=== PATIENT | male | born 1955 | race Asian ===

== ENCOUNTER 2020-02-18 12:54 | Outpatient (REF) | payer OTHER, SELFPAY ==
--- NOTE | 2020-02-18 | US_ITS ---
EXAMINATION: US RETROPERITONEAL LIMITED (RENAL ONLY) CLINICAL INFORMATION: Microalbuminuria. COMPARISON: None TECHNIQUE: Routine retroperitoneal imaging of kidneys was performed. FINDINGS: RIGHT KIDNEY: 11.9 x 4.5 x 5.9 cm (SAG x AP x TRV). The kidney is normal in size, contour, and echogenicity. Renal cortical thickness is normal. No calculi or focal parenchymal lesions. No hydronephrosis. LEFT KIDNEY: 12.3 x 6.7 x 5.1 cm (SAG x AP x TRV). The kidney is normal in size, contour, and echogenicity. Renal cortical thickness is normal. No calculi or focal parenchymal lesions. No hydronephrosis. US/US renal BI IMPRESSION: Unremarkable renal ultrasound.
== END 2020-02-18 12:55 | disposition home or self-care (01) ==
LOC: HO.US 12:54
PROVIDERS: Visit Provider Internal Medicine Nephrology
DX: R80.9 Proteinuria, unspecified (principal)
CPT/HCPCS: 76775

== ENCOUNTER → 2020-03-08 08:43 | Outpatient (BNVA) | payer OTHER, SELFPAY | PROVIDERS: PCP Internal Medicine; Referring Provider Internal Medicine; Visit Provider Urology | DX: N52.9 Male erectile dysfunction, unspecified (principal); R35.1 Nocturia | CPT/HCPCS: 99212 ==

== ENCOUNTER 2020-03-09 08:49 | Outpatient (REF) | payer OTHER, SELFPAY ==
[2020-03-09 10:13] LABS: MANUAL DIFF FLAG NO
[2020-03-09 10:23] LABS: Basophils Percent Auto 0.6 % (0-2); Eosinophils Absolute Auto 0.1 X10*3/uL (0.0-0.4); Eosinophils Percent Auto 1.2 % (0-4); Hemoglobin 14.9 g/dl (14.0-18.0); Imm Gran Abs Auto 0.01 X10*3/uL (0.00-0.03); Imm Gran Pct Auto 0.2 % (0.0-0.4); Lymphocytes Absolute Auto 1.8 X10*3/uL (1.2-4.9); Lymphocytes Percent Auto 36.4 % (20-40); Mean Corpuscular HGB Conc 32.4 g/dl (31.0-36.0); Mean Corpuscular Hemoglobin 29.6 pg (27.0-33.0); Mean Corpuscular Volume 91.3 fL (80-98); Mean Platelet Volume 10.2 fL (9.4-12.4); Monocytes Absolute Auto 0.4 X10*3/uL (0.1-1.2); Monocytes Percent Auto 8.1 % (2-11); Neutrophils Absolute Auto 2.7 X10*3/uL (2.0-8.3); Neutrophils Percent Auto 53.5 % (45-73); Platelet Count 194 X10*3/uL (160-400); Red Blood Count 5.04 X10*6/uL (4.60-5.80); White Blood Count 5.1 X10*3/uL (4.8-10.8)
[2020-03-09 10:28] LABS: Estimated Average Glucose 154 mg/dL
[2020-03-09 10:58] LABS: Alanine Aminotransferase 21 U/L (0-40); Albumin Level 4.1 g/dL (3.5-5.0); Alkaline Phosphatase 46 U/L (39-117); Anion Gap 12 (12-20); Aspartate Amino Transferase 25 U/L (5-37); Bilirubin Total 1.7 mg/dL (0.0-1.0); Blood Urea Nitrogen 17 mg/dL (9-16); Calcium 8.5 mg/dL (8.4-10.2); Carbon Dioxide 27 mmol/L (22-29); Chloride 102 mmol/L (96-108); Estimated Glomerular Filt Rate > 60; Glucose Random 134 mg/dL (60-115); Potassium 4.2 mmol/l (3.3-5.1); Sodium 137 mmol/L (135-145); Total Protein 7.7 g/dL (6.5-8.0)
[2020-03-09 11:22] LABS: Creatinine Urine 204.58 mg/dL
[2020-03-09 11:35] LABS: Microalbum/Creatinine Ratio Ur 633.9 ug/mg cr
== END 2020-03-09 08:50 | disposition home or self-care (01) ==
LOC: HO.LAB 08:49
PROVIDERS: PCP Internal Medicine; Visit Provider Internal Medicine
DX: E11.9 Type 2 diabetes mellitus without complications (principal); I10 Essential (primary) hypertension; I48.20 Chronic atrial fibrillation, unspecified; R80.9 Proteinuria, unspecified
CPT/HCPCS: 36415; 80053; 82043; 83036; 85025

== ENCOUNTER 2020-06-24 08:36 | Outpatient (REF) | payer OTHER, SELFPAY ==
[2020-06-24 09:55] LABS: MANUAL DIFF FLAG NO
[2020-06-24 10:06] LABS: Glucose Urine UA NEG (NEG); Leukocyte Esterase Urine NEG (NEG); Nitrite Urine NEG (NEG); Specific Gravity - Urine >= 1.030 (1.005-1.025); Urine Blood TRACE (NEG); Urine Ketones NEG (NEG); Urine Protein 2+ MG/DL (NEG-TRACE)
[2020-06-24 10:06] LABS: Basophils Percent Auto 0.7 % (0-2); Eosinophils Absolute Auto 0.1 X10*3/uL (0.0-0.4); Eosinophils Percent Auto 1.3 % (0-4); Hemoglobin 16.2 g/dl (14.0-18.0); Imm Gran Abs Auto 0.01 X10*3/uL (0.00-0.03); Imm Gran Pct Auto 0.2 % (0.0-0.4); Lymphocytes Absolute Auto 2.3 X10*3/uL (1.2-4.9); Lymphocytes Percent Auto 38.8 % (20-40); Mean Corpuscular HGB Conc 33.8 g/dl (31.0-36.0); Mean Corpuscular Hemoglobin 30.5 pg (27.0-33.0); Mean Corpuscular Volume 90.4 fL (80-98); Mean Platelet Volume 10.4 fL (9.4-12.4); Monocytes Absolute Auto 0.4 X10*3/uL (0.1-1.2); Monocytes Percent Auto 7.4 % (2-11); Neutrophils Absolute Auto 3.1 X10*3/uL (2.0-8.3); Neutrophils Percent Auto 51.6 % (45-73); Platelet Count 179 X10*3/uL (160-400); Red Blood Count 5.31 X10*6/uL (4.60-5.80); Red Cell Distribution Width 11.7 % (11.0-16.0); White Blood Count 5.9 X10*3/uL (4.8-10.8)
[2020-06-24 10:09] LABS: INTERNATIONAL NORM RATIO 1.9 (0.9-1.1); Prothrombin Time 22.9 SEC (10.8-13.0)
[2020-06-24 10:09] LABS: Appearance Urine CLEAR; Color Urine YELLOW
[2020-06-24 10:38] LABS: Creatinine Urine 157.14 mg/dL
[2020-06-24 10:42] LABS: Albumin Level 4.3 g/dL (3.5-5.0); Anion Gap 16 (12-20); Blood Urea Nitrogen 18 mg/dL (9-16); Calcium 8.9 mg/dL (8.4-10.2); Carbon Dioxide 27 mmol/L (22-29); Chloride 100 mmol/L (96-108); Estimated Glomerular Filt Rate > 60; Magnesium 2.1 mg/dL (1.6-2.6); Phosphorus 3.3 mg/dL (2.7-4.5); Potassium 4.4 mmol/L (3.3-5.1); Sodium 139 mmol/L (135-145)
[2020-06-24 11:00] LABS: Protein/Creatinine Ratio, Ur 2.27 (<0.2); Total Protein Urine Random 356 mg/dL (<12)
[2020-06-24 11:01] LABS: RBC Urine 0-2 /HPF (0); WBC Urine 0-2 /HPF (0-4)
[2020-06-24 11:19] LABS: Microalbum/Creatinine Ratio Ur 1587.1 ug/mg cr
[2020-06-24 13:26] LABS: Renal w Reflex Lab Use Only Order verified
== END 2020-06-24 08:37 | disposition home or self-care (01) ==
LOC: HO.LAB 08:36
PROVIDERS: PCP Internal Medicine; Visit Provider Internal Medicine Nephrology
DX: I48.91 Unspecified atrial fibrillation (principal); I10 Essential (primary) hypertension; R80.9 Proteinuria, unspecified
CPT/HCPCS: 36415; 80051; 81001; 82040; 82043; 82310; 82565; 83735; 84100; 84156; 84520; 85025; 85610

== ENCOUNTER → 2020-07-15 09:00 | Outpatient (BNVA) | payer OTHER, SELFPAY | PROVIDERS: PCP Internal Medicine; Visit Provider Internal Medicine | DX: I48.20 Chronic atrial fibrillation, unspecified (principal); Z51.81 Encounter for therapeutic drug level monitoring; Z79.01 Long term (current) use of anticoagulants | CPT/HCPCS: 85610; 99201 ==

== ENCOUNTER → 2020-07-22 09:02 | Outpatient (BNVA) | payer OTHER, SELFPAY | PROVIDERS: PCP Internal Medicine; Visit Provider Internal Medicine | DX: I48.20 Chronic atrial fibrillation, unspecified (principal); Z51.81 Encounter for therapeutic drug level monitoring; Z79.01 Long term (current) use of anticoagulants | CPT/HCPCS: 85610; 99211 ==

== ENCOUNTER → 2020-07-29 09:10 | Outpatient (BNVA) | payer OTHER, SELFPAY | PROVIDERS: PCP Internal Medicine; Visit Provider Internal Medicine | DX: I48.20 Chronic atrial fibrillation, unspecified (principal); I05.0 Rheumatic mitral stenosis; Z51.81 Encounter for therapeutic drug level monitoring; Z79.01 Long term (current) use of anticoagulants | CPT/HCPCS: 85610; 99211 ==

== ENCOUNTER 2020-08-03 08:47 | Outpatient (REF) | payer OTHER, SELFPAY ==
[2020-08-03 10:09] LABS: MANUAL DIFF FLAG NO
[2020-08-03 10:17] LABS: Basophils Percent Auto 0.6 % (0-2); Eosinophils Absolute Auto 0.1 X10*3/uL (0.0-0.4); Eosinophils Percent Auto 1.9 % (0-4); Hematocrit 48.9 % (42-52); Hemoglobin 16.8 g/dl (14.0-18.0); Imm Gran Abs Auto 0.01 X10*3/uL (0.00-0.03); Imm Gran Pct Auto 0.2 % (0.0-0.4); Lymphocytes Absolute Auto 1.3 X10*3/uL (1.2-4.9); Lymphocytes Percent Auto 24.4 % (20-40); Mean Corpuscular HGB Conc 34.4 g/dl (31.0-36.0); Mean Corpuscular Hemoglobin 31.3 pg (27.0-33.0); Mean Corpuscular Volume 91.2 fL (80-98); Mean Platelet Volume 10.2 fL (9.4-12.4); Monocytes Absolute Auto 0.4 X10*3/uL (0.1-1.2); Monocytes Percent Auto 8.1 % (2-11); Neutrophils Absolute Auto 3.3 X10*3/uL (2.0-8.3); Neutrophils Percent Auto 64.8 % (45-73); Platelet Count 202 X10*3/uL (160-400); Red Blood Count 5.36 X10*6/uL (4.60-5.80); White Blood Count 5.2 X10*3/uL (4.8-10.8)
[2020-08-03 10:54] LABS: Glucose Urine UA >=1000 MG/DL (NEG); Leukocyte Esterase Urine NEG (NEG); Nitrite Urine NEG (NEG); PH 5.5 (5.0-8.0); Specific Gravity - Urine 1.025 (1.005-1.025); Urine Blood TRACE (NEG); Urine Ketones NEG (NEG); Urine Protein 1+ MG/DL (NEG-TRACE)
[2020-08-03 10:57] LABS: Albumin Level 4.3 g/dL (3.5-5.0); Anion Gap 13 (12-20); Carbon Dioxide 27 mmol/L (22-29); Chloride 103 mmol/L (96-108); Estimated Glomerular Filt Rate > 60; Magnesium 2.3 mg/dL (1.6-2.6); Phosphorus 3.3 mg/dL (2.7-4.5); Potassium 4.5 mmol/L (3.3-5.1); Sodium 138 mmol/L (135-145)
[2020-08-03 11:00] LABS: Blood Urea Nitrogen 20 mg/dL (9-16); Calcium 8.9 mg/dL (8.4-10.2)
[2020-08-03 11:02] LABS: Appearance Urine CLEAR; Color Urine YELLOW
[2020-08-03 11:03] LABS: PSA,Total (Free>4and<10) 1.64 ng/mL (0.00-4.00)
[2020-08-03 11:05] LABS: Vitamin D 25-OH Total 11.5 ng/mL (>30)
[2020-08-03 11:21] LABS: RBC Urine 0-2 /HPF (0); WBC Urine 0-2 /HPF (0-4)
[2020-08-03 17:45] LABS: Creatinine Urine 92.93 mg/dL; Protein/Creatinine Ratio, Ur 0.77 (<0.2); Total Protein Urine Random 72 mg/dL (<12)
[2020-08-04 04:32] LABS: HBc Num1 0.15 S/CO (0.00-0.79); Hepatitis B Core Antibody Nonreactive (Nonreactive); ~Hepatitis C Antibody Nonreactive (Nonreactive)
[2020-08-04 04:48] LABS: HBS Num1 1.01 mIU/mL (0-7.99); HBsAGNum1 0.38 S/CO (0.00-0.99); Hepatitis B Surface Antigen Negative (Negative); ~Hepatitis B Surface Antibody NONREACTIVE (Nonreactive)
[2020-08-04 11:26] LABS: Calcium (PTHI) 9.1 mg/dL (8.6-10.3); PTHI 50 pg/mL (14-64)
[2020-08-04 14:12] LABS: Complement C3 153 mg/dL (82-185)
[2020-08-04 15:02] LABS: Anti Nuclear Antibody Screen NEGATIVE (NEGATIVE)
[2020-08-04 21:28] LABS: Kappa Light Chain, Free Serum 27.6 mg/L (3.3-19.4); Lambda Light Chain, Free Serum 19.7 mg/L (5.7-26.3)
[2020-08-05 22:23] LABS: Prot Elec - Albumin 4.2 g/dL (3.8-4.8); Prot Elec - Alpha1 0.2 g/dL (0.2-0.3); Prot Elec - Beta 1 0.5 g/dL (0.4-0.6); Prot Elec - Beta 2 0.6 g/dL (0.2-0.5); Prot Elec - Gamma 1.7 g/dL (0.8-1.7); Prot Elec - Total Protein 8.2 g/dL (6.1-8.1)
== END 2020-08-03 08:48 | disposition home or self-care (01) ==
LOC: HO.LAB 08:47
PROVIDERS: Urology; PCP Internal Medicine; Visit Provider Internal Medicine Nephrology
DX: Z12.5 Encounter for screening for malignant neoplasm of prostate (principal); N18.2 Chronic kidney disease, stage 2 (mild); I15.1 Hypertension secondary to other renal disorders; R80.9 Proteinuria, unspecified; E11.21 Type 2 diabetes mellitus with diabetic nephropathy; E11.22 Type 2 diabetes mellitus with diabetic chronic kidney disease; N13.8 Other obstructive and reflux uropathy; N40.1 Benign prostatic hyperplasia with lower urinary tract symptoms; R35.1 Nocturia
CPT/HCPCS: 36415; 80051; 81001; 81003; 82040; 82043; 82306; 82310; 82565; 83520; 83735; 83970; 84100; 84153; 84155; 84156; 84165; 84520; 85025; 86038; 86039; 86160; 86255; 86704; 86706; 86803; 87340

== ENCOUNTER → 2020-08-05 09:22 | Outpatient (BNVA) | payer OTHER, SELFPAY | PROVIDERS: PCP Internal Medicine; Visit Provider Internal Medicine | DX: I48.20 Chronic atrial fibrillation, unspecified (principal); I05.0 Rheumatic mitral stenosis; Z79.01 Long term (current) use of anticoagulants; Z51.81 Encounter for therapeutic drug level monitoring | CPT/HCPCS: 85610; 99211 ==

== ENCOUNTER → 2020-08-19 08:51 | Outpatient (BNVA) | payer OTHER, SELFPAY | PROVIDERS: PCP Internal Medicine; Visit Provider Internal Medicine | DX: I48.20 Chronic atrial fibrillation, unspecified (principal); I05.0 Rheumatic mitral stenosis; Z79.01 Long term (current) use of anticoagulants; Z51.81 Encounter for therapeutic drug level monitoring | CPT/HCPCS: 85610; 99211 ==

== ENCOUNTER 2020-08-31 08:07 | Outpatient (REF) | payer OTHER, SELFPAY ==
[2020-08-31 09:10] LABS: MANUAL DIFF FLAG NO
[2020-08-31 09:19] LABS: Basophils Percent Auto 0.5 % (0-2); Eosinophils Absolute Auto 0.1 X10*3/uL (0.0-0.4); Eosinophils Percent Auto 2.3 % (0-4); Hematocrit 47.5 % (42-52); Imm Gran Abs Auto 0.01 X10*3/uL (0.00-0.03); Imm Gran Pct Auto 0.2 % (0.0-0.4); Lymphocytes Absolute Auto 1.4 X10*3/uL (1.2-4.9); Lymphocytes Percent Auto 25.4 % (20-40); Mean Corpuscular HGB Conc 33.7 g/dl (31.0-36.0); Mean Corpuscular Hemoglobin 31.3 pg (27.0-33.0); Mean Corpuscular Volume 92.8 fL (80-98); Mean Platelet Volume 10.3 fL (9.4-12.4); Monocytes Absolute Auto 0.4 X10*3/uL (0.1-1.2); Monocytes Percent Auto 7.7 % (2-11); Neutrophils Absolute Auto 3.6 X10*3/uL (2.0-8.3); Neutrophils Percent Auto 63.9 % (45-73); Platelet Count 199 X10*3/uL (160-400); Red Blood Count 5.12 X10*6/uL (4.60-5.80); Red Cell Distribution Width 11.6 % (11.0-16.0); White Blood Count 5.6 X10*3/uL (4.8-10.8)
[2020-08-31 09:30] LABS: Estimated Average Glucose 163 mg/dL; Hemoglobin A1c % 7.3 %
[2020-08-31 09:46] LABS: Alanine Aminotransferase 18 U/L (0-40); Albumin Level 4.1 g/dL (3.5-5.0); Alkaline Phosphatase 53 U/L (39-117); Anion Gap 12 (12-20); Aspartate Amino Transferase 27 U/L (5-37); Bilirubin Total 1.6 mg/dL (0.0-1.0); Blood Urea Nitrogen 16 mg/dL (9-16); Calcium 9.1 mg/dL (8.4-10.2); Carbon Dioxide 27 mmol/L (22-29); Chloride 102 mmol/L (96-108); Estimated Glomerular Filt Rate > 60; Glucose Random 129 mg/dL (60-115); Potassium 4.3 mmol/L (3.3-5.1); Sodium 137 mmol/L (135-145); Total Protein 7.6 g/dL (6.5-8.0)
[2020-08-31 10:20] LABS: Creatinine Urine 134.24 mg/dL; Microalbum/Creatinine Ratio Ur 407.4 ug/mg cr
== END 2020-08-31 08:08 | disposition home or self-care (01) ==
LOC: HO.LAB 08:07
PROVIDERS: PCP Internal Medicine; Visit Provider Internal Medicine
DX: I48.91 Unspecified atrial fibrillation (principal); E11.9 Type 2 diabetes mellitus without complications; I10 Essential (primary) hypertension
CPT/HCPCS: 36415; 80053; 82043; 83036; 85025

== ENCOUNTER → 2020-09-09 08:56 | Outpatient (BNVA) | payer OTHER, SELFPAY | PROVIDERS: PCP Internal Medicine; Visit Provider Internal Medicine | DX: I48.20 Chronic atrial fibrillation, unspecified (principal); I05.0 Rheumatic mitral stenosis; Z51.81 Encounter for therapeutic drug level monitoring; Z79.01 Long term (current) use of anticoagulants | CPT/HCPCS: 85610; 99211 ==

== ENCOUNTER → 2020-09-30 09:05 | Outpatient (BNVA) | payer OTHER, SELFPAY | PROVIDERS: PCP Internal Medicine; Visit Provider Internal Medicine | DX: I48.20 Chronic atrial fibrillation, unspecified (principal); Z51.81 Encounter for therapeutic drug level monitoring; Z79.1 Long term (current) use of non-steroidal anti-inflammatories (NSAID) | CPT/HCPCS: 85610; 99211 ==

== ENCOUNTER → 2020-10-28 08:44 | Outpatient (BNVA) | payer OTHER, SELFPAY | PROVIDERS: PCP Internal Medicine; Visit Provider Internal Medicine | DX: I48.20 Chronic atrial fibrillation, unspecified (principal); I05.0 Rheumatic mitral stenosis; Z51.81 Encounter for therapeutic drug level monitoring; Z79.01 Long term (current) use of anticoagulants | CPT/HCPCS: 85610; 99211 ==

== ENCOUNTER 2020-11-23 07:46 | Outpatient (REF) | payer OTHER, SELFPAY ==
[2020-11-23 08:25] LABS: MANUAL DIFF FLAG NO
[2020-11-23 08:32] LABS: Basophils Percent Auto 0.4 % (0-2); Eosinophils Absolute Auto 0.1 X10*3/uL (0.0-0.4); Eosinophils Percent Auto 1.4 % (0-4); Hematocrit 47.3 % (42-52); Hemoglobin 15.7 g/dl (14.0-18.0); Imm Gran Abs Auto 0.01 X10*3/uL (0.00-0.03); Imm Gran Pct Auto 0.2 % (0.0-0.4); Lymphocytes Absolute Auto 1.5 X10*3/uL (1.2-4.9); Lymphocytes Percent Auto 28.3 % (20-40); Mean Corpuscular HGB Conc 33.2 g/dl (31.0-36.0); Mean Corpuscular Hemoglobin 30.7 pg (27.0-33.0); Mean Corpuscular Volume 92.4 fL (80-98); Mean Platelet Volume 9.9 fL (9.4-12.4); Monocytes Absolute Auto 0.5 X10*3/uL (0.1-1.2); Monocytes Percent Auto 9.7 % (2-11); Neutrophils Absolute Auto 3.1 X10*3/uL (2.0-8.3); Platelet Count 173 X10*3/uL (160-400); Red Blood Count 5.12 X10*6/uL (4.60-5.80); Red Cell Distribution Width 11.7 % (11.0-16.0); White Blood Count 5.2 X10*3/uL (4.8-10.8)
[2020-11-23 08:42] LABS: Estimated Average Glucose 169 mg/dL; Hemoglobin A1c % 7.5 %
[2020-11-23 09:01] LABS: Alanine Aminotransferase 17 U/L (0-40); Alkaline Phosphatase 50 U/L (39-117); Anion Gap 12 (12-20); Aspartate Amino Transferase 25 U/L (5-37); Bilirubin Total 1.4 mg/dL (0.0-1.0); Blood Urea Nitrogen 16 mg/dL (9-16); Calcium 8.9 mg/dL (8.4-10.2); Carbon Dioxide 25 mmol/L (22-29); Chloride 103 mmol/L (96-108); Estimated Glomerular Filt Rate > 60; Glucose Random 137 mg/dL (60-115); Potassium 4.4 mmol/L (3.3-5.1); Sodium 136 mmol/L (135-145); Total Protein 7.4 g/dL (6.5-8.0)
[2020-11-23 09:43] LABS: Glucose Urine UA >=1000 MG/DL (NEG); Leukocyte Esterase Urine NEG (NEG); Nitrite Urine NEG (NEG); PH 5.5 (5.0-8.0); Urine Blood NEG (NEG); Urine Ketones NEG (NEG); Urine Protein NEG (NEG-TRACE)
[2020-11-23 10:01] LABS: Appearance Urine CLEAR; Color Urine YELLOW
[2020-11-23 10:18] LABS: Creatinine Urine 58.52 mg/dL
[2020-11-23 11:18] LABS: Mucus Urine TRACE /LPF; RBC Urine 0-2 /HPF (0); WBC Urine 0-2 /HPF (0-4)
== END 2020-11-23 07:47 | disposition home or self-care (01) ==
LOC: HO.LAB 07:46
PROVIDERS: PCP Internal Medicine; Visit Provider Internal Medicine
DX: E11.22 Type 2 diabetes mellitus with diabetic chronic kidney disease (principal); I12.9 Hypertensive chronic kidney disease with stage 1 through stage 4 chronic kidney disease, or unspecified chronic kidney disease; N18.9 Chronic kidney disease, unspecified; I48.91 Unspecified atrial fibrillation
CPT/HCPCS: 36415; 80053; 81001; 81003; 82043; 83036; 85025

== ENCOUNTER → 2020-11-25 08:41 | Outpatient (BNVA) | payer OTHER, SELFPAY | PROVIDERS: PCP Internal Medicine; Visit Provider Internal Medicine | DX: I48.20 Chronic atrial fibrillation, unspecified (principal); Z51.81 Encounter for therapeutic drug level monitoring; Z79.01 Long term (current) use of anticoagulants | CPT/HCPCS: 85610; 99211 ==

== ENCOUNTER → 2020-12-30 08:50 | Outpatient (BNVA) | payer OTHER, SELFPAY | PROVIDERS: PCP Internal Medicine; Visit Provider Internal Medicine | DX: I48.20 Chronic atrial fibrillation, unspecified (principal); I05.0 Rheumatic mitral stenosis; Z51.81 Encounter for therapeutic drug level monitoring; Z79.01 Long term (current) use of anticoagulants | CPT/HCPCS: 85610; 99211 ==

== ENCOUNTER → 2021-01-27 09:01 | Outpatient (BNVA) | payer OTHER, SELFPAY | PROVIDERS: PCP Internal Medicine; Visit Provider Internal Medicine | DX: I48.20 Chronic atrial fibrillation, unspecified (principal); I05.0 Rheumatic mitral stenosis; Z51.81 Encounter for therapeutic drug level monitoring; Z79.01 Long term (current) use of anticoagulants | CPT/HCPCS: 85610; 99211 ==

== ENCOUNTER 2021-02-14 08:16 | Outpatient (REF) | payer OTHER, SELFPAY ==
[2021-02-14 08:34] LABS: MANUAL DIFF FLAG NO
[2021-02-14 08:57] LABS: Basophils Percent Auto 0.6 % (0-2); Eosinophils Absolute Auto 0.1 X10*3/uL (0.0-0.4); Eosinophils Percent Auto 1.6 % (0-4); Hematocrit 48.7 % (42-52); Hemoglobin 15.9 g/dl (14.0-18.0); Imm Gran Abs Auto 0.01 X10*3/uL (0.00-0.03); Imm Gran Pct Auto 0.2 % (0.0-0.4); Lymphocytes Absolute Auto 1.4 X10*3/uL (1.2-4.9); Lymphocytes Percent Auto 28.7 % (20-40); Mean Corpuscular HGB Conc 32.6 g/dl (31.0-36.0); Mean Corpuscular Hemoglobin 30.3 pg (27.0-33.0); Mean Corpuscular Volume 92.9 fL (80-98); Mean Platelet Volume 9.8 fL (9.4-12.4); Monocytes Absolute Auto 0.4 X10*3/uL (0.1-1.2); Monocytes Percent Auto 7.3 % (2-11); Neutrophils Percent Auto 61.6 % (45-73); Platelet Count 176 X10*3/uL (160-400); Red Blood Count 5.24 X10*6/uL (4.60-5.80); White Blood Count 4.9 X10*3/uL (4.8-10.8)
[2021-02-14 09:12] LABS: Appearance Urine CLEAR; Color Urine YELLOW; Glucose Urine UA >=1000 MG/DL (NEG); Leukocyte Esterase Urine NEG (NEG); Nitrite Urine NEG (NEG); Specific Gravity - Urine 1.025 (1.005-1.025); Urine Blood TRACE (NEG); Urine Ketones NEG (NEG); Urine Protein 1+ MG/DL (NEG-TRACE)
[2021-02-14 09:26] LABS: RBC Urine 0-2 /HPF (0); WBC Urine 0 /HPF (0-4)
[2021-02-14 09:34] LABS: Albumin Level 4.1 g/dL (3.5-5.0); Anion Gap 13 (12-20); Blood Urea Nitrogen 15 mg/dL (9-16); Calcium 9.1 mg/dL (8.4-10.2); Carbon Dioxide 26 mmol/L (22-29); Chloride 105 mmol/L (96-108); Estimated Glomerular Filt Rate > 60; Magnesium 2.2 mg/dL (1.6-2.6); Phosphorus 3.4 mg/dL (2.7-4.5); Potassium 4.3 mmol/L (3.3-5.1); Sodium 140 mmol/L (135-145)
[2021-02-14 09:36] LABS: Vitamin D 25-OH Total 27.4 ng/mL (>30)
[2021-02-16 15:37] LABS: Calcium (PTHI) 8.9 mg/dL (8.6-10.3); PTHI 40 pg/mL (14-64)
== END 2021-02-14 08:17 | disposition home or self-care (01) ==
LOC: HO.LAB 08:16
PROVIDERS: PCP Internal Medicine; Visit Provider Internal Medicine Nephrology
DX: E11.21 Type 2 diabetes mellitus with diabetic nephropathy (principal); E11.22 Type 2 diabetes mellitus with diabetic chronic kidney disease; N18.2 Chronic kidney disease, stage 2 (mild); I15.1 Hypertension secondary to other renal disorders; R80.1 Persistent proteinuria, unspecified
CPT/HCPCS: 36415; 80051; 81001; 81003; 82040; 82306; 82310; 82565; 83735; 83970; 84100; 84520; 85025; 87086

== ENCOUNTER → 2021-02-24 09:24 | Outpatient (BNVA) | payer OTHER, SELFPAY | PROVIDERS: PCP Internal Medicine; Visit Provider Internal Medicine | DX: I48.20 Chronic atrial fibrillation, unspecified (principal); Z51.81 Encounter for therapeutic drug level monitoring; Z79.01 Long term (current) use of anticoagulants | CPT/HCPCS: 85610; 99211 ==

== ENCOUNTER → 2021-03-31 09:06 | Outpatient (BNVA) | payer OTHER, SELFPAY | PROVIDERS: PCP Internal Medicine; Visit Provider Internal Medicine | DX: I48.20 Chronic atrial fibrillation, unspecified (principal); I05.0 Rheumatic mitral stenosis; Z51.81 Encounter for therapeutic drug level monitoring; Z79.01 Long term (current) use of anticoagulants | CPT/HCPCS: 85610; 99211 ==

== ENCOUNTER → 2021-04-12 08:53 | Outpatient (BNVA) | payer OTHER, SELFPAY | PROVIDERS: PCP Internal Medicine; Visit Provider Internal Medicine | DX: I48.20 Chronic atrial fibrillation, unspecified (principal); I05.0 Rheumatic mitral stenosis; Z51.81 Encounter for therapeutic drug level monitoring; Z79.01 Long term (current) use of anticoagulants | CPT/HCPCS: 85610; 99211 ==

== ENCOUNTER → 2021-04-26 09:11 | Outpatient (BNVA) | payer OTHER, SELFPAY | PROVIDERS: PCP Internal Medicine; Visit Provider Internal Medicine | DX: I48.20 Chronic atrial fibrillation, unspecified (principal); Z51.81 Encounter for therapeutic drug level monitoring; Z79.01 Long term (current) use of anticoagulants | CPT/HCPCS: 85610; 99211 ==

== ENCOUNTER → 2021-05-12 09:02 | Outpatient (BNVA) | payer OTHER, SELFPAY | PROVIDERS: PCP Internal Medicine; Visit Provider Internal Medicine | DX: I48.20 Chronic atrial fibrillation, unspecified (principal); Z51.81 Encounter for therapeutic drug level monitoring; Z79.01 Long term (current) use of anticoagulants | CPT/HCPCS: 85610; 99211 ==

== ENCOUNTER → 2021-06-02 08:39 | Outpatient (BNVA) | payer OTHER, SELFPAY | PROVIDERS: PCP Internal Medicine; Visit Provider Internal Medicine | DX: I48.20 Chronic atrial fibrillation, unspecified (principal); I05.0 Rheumatic mitral stenosis; Z51.81 Encounter for therapeutic drug level monitoring; Z79.01 Long term (current) use of anticoagulants | CPT/HCPCS: 85610; 99211 ==

== ENCOUNTER 2021-06-09 08:52 | Outpatient (REF) | payer OTHER, SELFPAY ==
[2021-06-09 09:10] LABS: MANUAL DIFF FLAG NO
[2021-06-09 10:11] LABS: Basophils Percent Auto 0.7 % (0-2); Eosinophils Absolute Auto 0.1 X10*3/uL (0.0-0.4); Eosinophils Percent Auto 1.1 % (0-4); Hematocrit 47.1 % (42.0-52.0); Hemoglobin 15.7 g/dl (14.0-18.0); Imm Gran Abs Auto 0.02 X10*3/uL (0.00-0.03); Imm Gran Pct Auto 0.5 % (0.0-0.4); Lymphocytes Absolute Auto 1.5 X10*3/uL (1.2-4.9); Lymphocytes Percent Auto 33.3 % (20-40); Mean Corpuscular HGB Conc 33.3 g/dl (31.0-36.0); Mean Corpuscular Hemoglobin 30.4 pg (27.0-33.0); Mean Corpuscular Volume 91.3 fL (80.0-98.0); Mean Platelet Volume 10.4 fL (9.4-12.4); Monocytes Absolute Auto 0.3 X10*3/uL (0.1-1.2); Monocytes Percent Auto 6.8 % (2-11); Neutrophils Absolute Auto 2.6 x10*3/uL (2.0-8.3); Neutrophils Percent Auto 57.6 % (45-73); Platelet Count 162 X10*3/uL (160-400); Red Blood Count 5.16 X10*6/uL (4.60-5.80); Red Cell Distribution Width 11.5 % (11.0-16.0); White Blood Count 4.4 X10*3/uL (4.8-10.8)
[2021-06-09 10:20] LABS: Alanine Aminotransferase 14 U/L (0-40); Alkaline Phosphatase 49 U/L (39-117); Anion Gap 11 (12-20); Aspartate Amino Transferase 18 U/L (5-37); Bilirubin Total 1.6 mg/dL (0.0-1.0); Blood Urea Nitrogen 15 mg/dL (9-16); Carbon Dioxide 28 mmol/L (22-29); Chloride 105 mmol/L (96-108); Cholesterol 147 mg/dL; Estimated Glomerular Filt Rate > 60; Glucose Fasting 132 mg/dL (60-99); HDL Cholesterol 46 mg/dL; LDL Cholesterol Calculated 80 mg/dl; Potassium 4.3 mmol/L (3.3-5.1); Sodium 140 mmol/L (135-145); Total Protein 7.6 g/dL (6.5-8.0); Triglycerides 105 mg/dL
[2021-06-09 10:31] LABS: Creatinine Urine 89.42 mg/dL
[2021-06-09 10:36] LABS: Estimated Average Glucose 160 mg/dL; Hemoglobin A1c % 7.2 %
[2021-06-09 10:46] LABS: Microalbum/Creatinine Ratio Ur 631.8 ug/mg cr
== END 2021-06-09 08:53 | disposition home or self-care (01) ==
LOC: HO.LAB 08:52
PROVIDERS: PCP Internal Medicine; Visit Provider Internal Medicine
DX: Z00.00 Encounter for general adult medical examination without abnormal findings (principal); Z12.5 Encounter for screening for malignant neoplasm of prostate; I48.91 Unspecified atrial fibrillation; E78.00 Pure hypercholesterolemia, unspecified; N40.0 Benign prostatic hyperplasia without lower urinary tract symptoms; E11.9 Type 2 diabetes mellitus without complications
CPT/HCPCS: 36415; 80053; 80061; 82043; 83036; 84153; 85025

== ENCOUNTER → 2021-06-16 08:16 | Outpatient (BNVA) | payer OTHER, SELFPAY | PROVIDERS: PCP Internal Medicine; Visit Provider Internal Medicine | DX: I48.20 Chronic atrial fibrillation, unspecified (principal); I05.0 Rheumatic mitral stenosis; Z51.81 Encounter for therapeutic drug level monitoring; Z79.01 Long term (current) use of anticoagulants | CPT/HCPCS: 85610; 99211 ==

== ENCOUNTER → 2021-07-07 08:17 | Outpatient (BNVA) | payer OTHER, SELFPAY | PROVIDERS: PCP Internal Medicine; Visit Provider Internal Medicine | DX: I48.20 Chronic atrial fibrillation, unspecified (principal); Z51.81 Encounter for therapeutic drug level monitoring; Z79.01 Long term (current) use of anticoagulants | CPT/HCPCS: 85610; 99211 ==

== ENCOUNTER → 2021-08-11 08:29 | Outpatient (BNVA) | payer OTHER, SELFPAY | PROVIDERS: PCP Internal Medicine; Visit Provider Internal Medicine | DX: I48.20 Chronic atrial fibrillation, unspecified (principal); Z79.01 Long term (current) use of anticoagulants; Z51.81 Encounter for therapeutic drug level monitoring | CPT/HCPCS: 85610; 99211 ==

== ENCOUNTER 2021-09-06 09:41 | Outpatient (REF) | payer OTHER, SELFPAY ==
[2021-09-06 11:28] LABS: PSA,Total (Free>4and<10) 4.63 ng/mL (0.00-4.00)
[2021-09-07 11:46] LABS: Free Prostate Spec Ag 0.8 ng/mL; Percent Free Prostate Spec Ag 15 % (calc) (>25); Prostate Specific Ag Total 5.2 ng/mL (< OR = 4.0)
== END 2021-09-06 09:42 | disposition home or self-care (01) ==
LOC: HO.LAB 09:41
PROVIDERS: PCP Internal Medicine; Visit Provider Urology
DX: Z12.5 Encounter for screening for malignant neoplasm of prostate (principal); N52.9 Male erectile dysfunction, unspecified
CPT/HCPCS: 36415; 84153; 84154

== ENCOUNTER → 2021-09-08 08:53 | Outpatient (BNVA) | payer OTHER, SELFPAY | PROVIDERS: PCP Internal Medicine; Visit Provider Internal Medicine | DX: I48.20 Chronic atrial fibrillation, unspecified (principal); Z79.01 Long term (current) use of anticoagulants; Z51.81 Encounter for therapeutic drug level monitoring | CPT/HCPCS: 85610; 99211 ==

== ENCOUNTER → 2021-09-15 08:42 | Outpatient (BNVA) | payer OTHER, SELFPAY | PROVIDERS: PCP Internal Medicine; Visit Provider Urology | DX: R97.20 Elevated prostate specific antigen [PSA] (principal); N52.9 Male erectile dysfunction, unspecified; B00.9 Herpesviral infection, unspecified | CPT/HCPCS: 99212 ==

== ENCOUNTER → 2021-10-06 08:57 | Outpatient (BNVA) | payer OTHER, SELFPAY | PROVIDERS: PCP Internal Medicine; Visit Provider Internal Medicine | DX: I48.20 Chronic atrial fibrillation, unspecified (principal); Z79.01 Long term (current) use of anticoagulants; Z51.81 Encounter for therapeutic drug level monitoring | CPT/HCPCS: 85610; 99211 ==

== ENCOUNTER → 2021-10-27 08:52 | Outpatient (BNVA) | payer OTHER, SELFPAY | PROVIDERS: PCP Internal Medicine; Visit Provider Internal Medicine | DX: I48.20 Chronic atrial fibrillation, unspecified (principal); Z51.81 Encounter for therapeutic drug level monitoring; Z79.01 Long term (current) use of anticoagulants | CPT/HCPCS: 85610 ==

== ENCOUNTER → 2021-11-24 08:58 | Outpatient (BNVA) | payer OTHER, SELFPAY | PROVIDERS: PCP Internal Medicine; Visit Provider Internal Medicine | DX: I48.20 Chronic atrial fibrillation, unspecified (principal); Z79.01 Long term (current) use of anticoagulants; Z51.81 Encounter for therapeutic drug level monitoring | CPT/HCPCS: 85610; 99211 ==

== ENCOUNTER 2021-11-24 10:25 | Outpatient (REF) | payer OTHER, SELFPAY ==
[2021-11-24 10:50] LABS: MANUAL DIFF FLAG NO
[2021-11-24 11:01] LABS: Basophils Percent Auto 0.6 % (0-2); Eosinophils Absolute Auto 0.1 X10*3/uL (0.0-0.4); Eosinophils Percent Auto 1.1 % (0-4); Hematocrit 46.5 % (42.0-52.0); Hemoglobin 15.5 g/dl (14.0-18.0); Imm Gran Abs Auto 0.01 X10*3/uL (0.00-0.03); Imm Gran Pct Auto 0.2 % (0.0-0.4); Lymphocytes Absolute Auto 1.1 X10*3/uL (1.2-4.9); Lymphocytes Percent Auto 23.9 % (20-40); Mean Corpuscular HGB Conc 33.3 g/dl (31.0-36.0); Mean Corpuscular Hemoglobin 30.3 pg (27.0-33.0); Mean Corpuscular Volume 90.8 fL (80.0-98.0); Mean Platelet Volume 9.7 fL (9.4-12.4); Monocytes Absolute Auto 0.4 X10*3/uL (0.1-1.2); Neutrophils Absolute Auto 3.1 x10*3/uL (2.0-8.3); Neutrophils Percent Auto 66.2 % (45-73); Platelet Count 176 X10*3/uL (160-400); Red Blood Count 5.12 X10*6/uL (4.60-5.80); Red Cell Distribution Width 11.8 % (11.0-16.0); White Blood Count 4.6 X10*3/uL (4.8-10.8)
[2021-11-24 11:06] LABS: Estimated Average Glucose 154 mg/dL
[2021-11-24 12:14] LABS: Alanine Aminotransferase 18 U/L (0-40); Albumin Level 4.2 g/dL (3.5-5.0); Alkaline Phosphatase 52 U/L (39-117); Anion Gap 13 (12-20); Aspartate Amino Transferase 21 U/L (5-37); Bilirubin Total 1.3 mg/dL (0.0-1.0); Blood Urea Nitrogen 16 mg/dL (9-16); Calcium 8.7 mg/dL (8.4-10.2); Carbon Dioxide 27 mmol/L (22-29); Chloride 104 mmol/L (96-108); Estimated Glomerular Filt Rate > 60; Glucose Fasting 131 mg/dL (60-99); Potassium 4.3 mmol/L (3.3-5.1); Sodium 140 mmol/L (135-145); Total Protein 7.7 g/dL (6.5-8.0)
[2021-11-24 12:18] LABS: Vitamin D 25-OH Total 23.3 ng/mL (>30)
[2021-11-24 14:25] LABS: Creatinine Urine 77.04 mg/dL
== END 2021-11-24 10:26 | disposition home or self-care (01) ==
LOC: HO.10HDL 10:25
PROVIDERS: Visit Provider Internal Medicine
DX: I48.91 Unspecified atrial fibrillation (principal); I10 Essential (primary) hypertension; E11.9 Type 2 diabetes mellitus without complications; E55.9 Vitamin D deficiency, unspecified
CPT/HCPCS: 36415; 80053; 82043; 82306; 83036; 85025

== ENCOUNTER → 2021-12-22 09:00 | Outpatient (BNVA) | payer OTHER, SELFPAY | PROVIDERS: PCP Internal Medicine; Visit Provider Internal Medicine | DX: I48.20 Chronic atrial fibrillation, unspecified (principal); Z51.81 Encounter for therapeutic drug level monitoring; Z79.01 Long term (current) use of anticoagulants | CPT/HCPCS: 85610; 99211 ==

== ENCOUNTER → 2022-01-05 09:14 | Outpatient (BNVA) | payer OTHER, SELFPAY | PROVIDERS: PCP Internal Medicine; Visit Provider Internal Medicine | DX: I48.20 Chronic atrial fibrillation, unspecified (principal); Z51.81 Encounter for therapeutic drug level monitoring; Z79.01 Long term (current) use of anticoagulants | CPT/HCPCS: 85610; 99211 ==

== ENCOUNTER → 2022-01-19 09:16 | Outpatient (BNVA) | payer OTHER, SELFPAY | PROVIDERS: PCP Internal Medicine; Visit Provider Internal Medicine | DX: I48.20 Chronic atrial fibrillation, unspecified (principal); Z79.01 Long term (current) use of anticoagulants; Z51.81 Encounter for therapeutic drug level monitoring | CPT/HCPCS: 85610; 99211 ==

== ENCOUNTER → 2022-02-16 09:14 | Outpatient (BNVA) | payer OTHER, SELFPAY | PROVIDERS: PCP Internal Medicine; Visit Provider Internal Medicine | DX: I48.20 Chronic atrial fibrillation, unspecified (principal); Z79.01 Long term (current) use of anticoagulants; Z51.81 Encounter for therapeutic drug level monitoring | CPT/HCPCS: 85610; 99211 ==

== ENCOUNTER 2022-03-02 10:15 | Outpatient (REF) | payer OTHER, SELFPAY ==
[2022-03-02 10:37] LABS: MANUAL DIFF FLAG NO
[2022-03-02 10:42] LABS: Basophils Percent Auto 0.4 % (0-2); Eosinophils Absolute Auto 0.1 X10*3/uL (0.0-0.4); Eosinophils Percent Auto 1.1 % (0-4); Hematocrit 49.3 % (42.0-52.0); Hemoglobin 16.8 g/dl (14.0-18.0); Imm Gran Abs Auto 0.01 X10*3/uL (0.00-0.03); Imm Gran Pct Auto 0.2 % (0.0-0.4); Lymphocytes Percent Auto 18.5 % (20-40); Mean Corpuscular HGB Conc 34.1 g/dl (31.0-36.0); Mean Corpuscular Hemoglobin 30.7 pg (27.0-33.0); Mean Platelet Volume 9.6 fL (9.4-12.4); Monocytes Absolute Auto 0.4 X10*3/uL (0.1-1.2); Monocytes Percent Auto 7.2 % (2-11); Neutrophils Percent Auto 72.6 % (45-73); Platelet Count 176 X10*3/uL (160-400); Red Blood Count 5.48 X10*6/uL (4.60-5.80); Red Cell Distribution Width 11.7 % (11.0-16.0); White Blood Count 5.5 X10*3/uL (4.8-10.8)
[2022-03-02 10:59] LABS: Estimated Average Glucose 154 mg/dL
[2022-03-02 11:19] LABS: Anion Gap 17 (12-20); Blood Urea Nitrogen 15 mg/dL (9-16); Calcium 9.1 mg/dL (8.4-10.2); Carbon Dioxide 24 mmol/L (22-29); Chloride 102 mmol/L (96-108); Estimated Glomerular Filt Rate > 60; Glucose Fasting 148 mg/dL (60-99); Potassium 4.2 mmol/L (3.3-5.1); Sodium 139 mmol/L (135-145)
[2022-03-02 11:34] LABS: Vitamin D 25-OH Total 35.8 ng/mL (>30)
== END 2022-03-02 10:16 | disposition home or self-care (01) ==
LOC: HO.10HDL 10:15
PROVIDERS: Visit Provider Internal Medicine
DX: E11.9 Type 2 diabetes mellitus without complications (principal); I48.91 Unspecified atrial fibrillation; I10 Essential (primary) hypertension; E55.9 Vitamin D deficiency, unspecified
CPT/HCPCS: 36415; 80048; 82306; 83036; 85025

== ENCOUNTER 2022-03-16 08:20 | Outpatient (REF) | payer OTHER, SELFPAY ==
[2022-03-16 15:00] LABS: PSA,Total (Free>4and<10) 2.88 ng/mL (0.00-4.00)
== END 2022-03-16 08:21 | disposition home or self-care (01) ==
LOC: HO.10HDL 08:20
PROVIDERS: Visit Provider Urology
DX: Z12.5 Encounter for screening for malignant neoplasm of prostate (principal); I48.20 Chronic atrial fibrillation, unspecified; N40.1 Benign prostatic hyperplasia with lower urinary tract symptoms; N13.8 Other obstructive and reflux uropathy; Z51.81 Encounter for therapeutic drug level monitoring; Z79.01 Long term (current) use of anticoagulants
CPT/HCPCS: 36415; 84153; 85610; 99211

== ENCOUNTER 2022-03-28 08:41 | Outpatient (REF) | payer OTHER, SELFPAY ==
[2022-03-28 16:43] LABS: Urine Cytology See Pathology rpt
== END 2022-03-28 08:42 | disposition home or self-care (01) ==
LOC: HO.LAB 08:41
PROVIDERS: Visit Provider Urology
DX: R35.1 Nocturia (principal); R31.29 Other microscopic hematuria; E11.69 Type 2 diabetes mellitus with other specified complication; N52.1 Erectile dysfunction due to diseases classified elsewhere; R97.20 Elevated prostate specific antigen [PSA]; Q55.69 Other congenital malformation of penis; I10 Essential (primary) hypertension; E78.5 Hyperlipidemia, unspecified; Z79.01 Long term (current) use of anticoagulants; Z79.899 Other long term (current) drug therapy
CPT/HCPCS: 51798; 88112; 99212

== ENCOUNTER → 2022-04-06 09:07 | Outpatient (BNVA) | payer MEDICARE, MEDICAID, SELFPAY | PROVIDERS: PCP Internal Medicine; Visit Provider Internal Medicine | DX: I48.20 Chronic atrial fibrillation, unspecified (principal); Z79.01 Long term (current) use of anticoagulants; Z51.81 Encounter for therapeutic drug level monitoring | CPT/HCPCS: 85610; 99211 ==

== ENCOUNTER → 2022-04-27 08:51 | Outpatient (BNVA) | payer MEDICARE, MEDICAID, SELFPAY | PROVIDERS: PCP Internal Medicine; Visit Provider Internal Medicine | DX: I48.20 Chronic atrial fibrillation, unspecified (principal); Z79.01 Long term (current) use of anticoagulants; Z51.81 Encounter for therapeutic drug level monitoring | CPT/HCPCS: 85610; 99211 ==

== ENCOUNTER → 2022-05-24 08:19 | Outpatient (BNVA) | payer MEDICARE, MEDICAID, SELFPAY | PROVIDERS: PCP Internal Medicine; Visit Provider Urology | DX: E11.69 Type 2 diabetes mellitus with other specified complication (principal); N52.1 Erectile dysfunction due to diseases classified elsewhere; R97.20 Elevated prostate specific antigen [PSA] | CPT/HCPCS: 51798; 99212 ==

== ENCOUNTER → 2022-05-25 09:00 | Outpatient (BNVA) | payer MEDICARE, MEDICAID, SELFPAY | PROVIDERS: PCP Internal Medicine; Visit Provider Internal Medicine | DX: I48.20 Chronic atrial fibrillation, unspecified (principal); Z79.01 Long term (current) use of anticoagulants; Z51.81 Encounter for therapeutic drug level monitoring | CPT/HCPCS: 85610; 99211 ==

== ENCOUNTER 2022-06-19 09:25 | Outpatient (REF) | payer MEDICARE, MEDICAID, SELFPAY ==
[2022-06-19 10:37] LABS: MANUAL DIFF FLAG NO
[2022-06-19 10:51] LABS: Appearance Urine Clear; Color Urine Yellow; Glucose Urine UA >=1000 mg/dL (Negative); Leukocyte Esterase Urine Negative (Negative); Nitrite Urine Negative (Negative); PH 5.5 (5.0-9.0); Specific Gravity - Urine >= 1.030 (1.005-1.025); UMIC TRIGGER UA YES; Urine Blood Trace (Negative); Urine Ketones Negative (Negative); Urine Protein 100 (2+) mg/dL (Neg-Trace)
[2022-06-19 10:52] LABS: Basophils Percent Auto 0.9 % (0-2); Eosinophils Absolute Auto 0.1 X10*3/uL (0.0-0.4); Eosinophils Percent Auto 1.5 % (0-4); Hematocrit 49.7 % (42.0-52.0); Hemoglobin 16.6 g/dl (14.0-18.0); Lymphocytes Absolute Auto 1.3 X10*3/uL (1.2-4.9); Lymphocytes Percent Auto 28.9 % (20-40); Mean Corpuscular HGB Conc 33.4 g/dl (31.0-36.0); Mean Corpuscular Hemoglobin 30.8 pg (27.0-33.0); Mean Corpuscular Volume 92.2 fL (80.0-98.0); Monocytes Absolute Auto 0.4 X10*3/uL (0.1-1.2); Neutrophils Absolute Auto 2.7 x10*3/uL (2.0-8.3); Neutrophils Percent Auto 59.7 % (45-73); Platelet Count 169 X10*3/uL (160-400); Red Blood Count 5.39 X10*6/uL (4.60-5.80); Red Cell Distribution Width 11.6 % (11.0-16.0); White Blood Count 4.6 X10*3/uL (4.8-10.8)
[2022-06-19 10:54] LABS: Bacteria Urine None Seen (None Seen); Hyaline Casts Urine 0-2 /LPF (0-2); RBC Urine 0-2 /HPF (0-2); Squamous Epithelial Cell Urine 0-2 /HPF (0-2); WBC Urine 0-5 /HPF (0-5)
[2022-06-19 11:00] LABS: Prothrombin Time 36.4 SEC (10.0-13.1)
[2022-06-19 11:03] LABS: Estimated Average Glucose 166 mg/dL; Hemoglobin A1c % 7.4 %
[2022-06-19 11:24] LABS: Alanine Aminotransferase 15 U/L (0-40); Albumin Level 3.9 g/dL (3.5-5.0); Alkaline Phosphatase 50 U/L (39-117); Anion Gap 13 (12-20); Aspartate Amino Transferase 20 U/L (5-37); Blood Urea Nitrogen 19 mg/dL (9-16); Calcium 8.9 mg/dL (8.4-10.2); Carbon Dioxide 27 mmol/L (22-29); Chloride 103 mmol/L (96-108); Estimated Glomerular Filt Rate > 60; Glucose Fasting 148 mg/dL (60-99); Potassium 4.3 mmol/L (3.3-5.1); Sodium 139 mmol/L (135-145); Total Protein 7.2 g/dL (6.5-8.0)
[2022-06-19 11:32] LABS: Creatinine Urine 81.87 mg/dL; Protein/Creatinine Ratio, Ur 1.42 (<0.2); Total Protein Urine Random 116 mg/dL (<12)
[2022-06-19 11:43] LABS: Thyroid Stimulating Hormone 0.83 uIU/mL (0.32-4.0)
[2022-06-19 11:49] LABS: Microalbum/Creatinine Ratio Ur 936.8 ug/mg cr
[2022-06-26 10:29] LABS: Testosterone, Free 94.8 pg/mL (35.0-155.0); Testosterone, Total 369 ng/dL (250-1100)
== END 2022-06-19 09:26 | disposition home or self-care (01) ==
LOC: HO.10HDL 09:25
PROVIDERS: Absent Provider Internal Medicine Nephrology; Visit Provider Internal Medicine
DX: E11.21 Type 2 diabetes mellitus with diabetic nephropathy (principal); R80.9 Proteinuria, unspecified; I12.9 Hypertensive chronic kidney disease with stage 1 through stage 4 chronic kidney disease, or unspecified chronic kidney disease; E11.22 Type 2 diabetes mellitus with diabetic chronic kidney disease; N18.2 Chronic kidney disease, stage 2 (mild); I48.91 Unspecified atrial fibrillation; R53.83 Other fatigue
CPT/HCPCS: 36415; 80053; 81001; 82043; 83036; 84156; 84402; 84403; 84443; 85025; 85610

== ENCOUNTER → 2022-06-29 09:06 | Outpatient (BNVA) | payer MEDICARE, MEDICAID, SELFPAY | PROVIDERS: PCP Internal Medicine; Visit Provider Internal Medicine | DX: I48.20 Chronic atrial fibrillation, unspecified (principal); Z79.01 Long term (current) use of anticoagulants; Z51.81 Encounter for therapeutic drug level monitoring | CPT/HCPCS: 85610; 99211 ==

== ENCOUNTER → 2022-07-27 08:57 | Outpatient (BNVA) | payer MEDICARE, MEDICAID, SELFPAY | PROVIDERS: PCP Internal Medicine; Visit Provider Internal Medicine | DX: I48.20 Chronic atrial fibrillation, unspecified (principal); Z79.01 Long term (current) use of anticoagulants; Z51.81 Encounter for therapeutic drug level monitoring | CPT/HCPCS: 85610; 99211 ==

== ENCOUNTER → 2022-08-10 09:02 | Outpatient (BNVA) | payer OTHER, MEDICAID, SELFPAY | PROVIDERS: PCP Internal Medicine; Visit Provider Internal Medicine | DX: I48.20 Chronic atrial fibrillation, unspecified (principal); Z51.81 Encounter for therapeutic drug level monitoring; Z79.01 Long term (current) use of anticoagulants | CPT/HCPCS: 85610; 99211 ==

== ENCOUNTER → 2022-09-14 09:12 | Outpatient (BNVA) | payer OTHER, MEDICAID, SELFPAY | PROVIDERS: PCP Internal Medicine; Visit Provider Internal Medicine | DX: I48.20 Chronic atrial fibrillation, unspecified (principal); Z79.01 Long term (current) use of anticoagulants; Z51.81 Encounter for therapeutic drug level monitoring | CPT/HCPCS: 85610; 99211 ==

== ENCOUNTER 2022-09-20 09:27 | Outpatient (REF) | payer OTHER, MEDICAID, SELFPAY ==
[2022-09-20 10:43] LABS: MANUAL DIFF FLAG NO
[2022-09-20 10:45] LABS: Basophils Absolute Auto 0.1 X10*3/uL (0.0-0.2); Basophils Percent Auto 1.1 % (0-2); Eosinophils Absolute Auto 0.1 X10*3/uL (0.0-0.4); Eosinophils Percent Auto 1.9 % (0-4); Hematocrit 46.3 % (42.0-52.0); Hemoglobin 15.5 g/dl (14.0-18.0); Imm Gran Abs Auto 0.01 X10*3/uL (0.00-0.03); Imm Gran Pct Auto 0.2 % (0.0-0.4); Lymphocytes Absolute Auto 1.1 X10*3/uL (1.2-4.9); Mean Corpuscular HGB Conc 33.5 g/dl (31.0-36.0); Mean Corpuscular Hemoglobin 30.8 pg (27.0-33.0); Mean Platelet Volume 9.8 fL (9.4-12.4); Monocytes Absolute Auto 0.5 X10*3/uL (0.1-1.2); Monocytes Percent Auto 9.7 % (2-11); Neutrophils Absolute Auto 2.9 x10*3/uL (2.0-8.3); Neutrophils Percent Auto 63.1 % (45-73); Platelet Count 176 X10*3/uL (160-400); Red Blood Count 5.03 X10*6/uL (4.60-5.80); Red Cell Distribution Width 12.1 % (11.0-16.0); White Blood Count 4.6 X10*3/uL (4.8-10.8)
[2022-09-20 11:19] LABS: Alanine Aminotransferase 16 U/L (0-40); Albumin Level 4.1 g/dL (3.5-5.0); Alkaline Phosphatase 53 U/L (39-117); Anion Gap 14 (12-20); Aspartate Amino Transferase 21 U/L (5-37); Bilirubin Total 2.2 mg/dL (0.0-1.0); Blood Urea Nitrogen 15 mg/dL (9-16); Calcium 8.8 mg/dL (8.4-10.2); Carbon Dioxide 24 mmol/L (22-29); Chloride 106 mmol/L (96-108); Estimated Glomerular Filt Rate > 60; Glucose Random 155 mg/dL (60-115); Potassium 4.5 mmol/L (3.3-5.1); Sodium 139 mmol/L (135-145); Total Protein 7.6 g/dL (6.5-8.0)
[2022-09-20 11:22] LABS: Estimated Average Glucose 157 mg/dL; Hemoglobin A1c % 7.1 %
== END 2022-09-20 09:28 | disposition home or self-care (01) ==
LOC: HO.10HDL 09:27
PROVIDERS: Visit Provider Internal Medicine
DX: I48.91 Unspecified atrial fibrillation (principal); E11.22 Type 2 diabetes mellitus with diabetic chronic kidney disease; I12.9 Hypertensive chronic kidney disease with stage 1 through stage 4 chronic kidney disease, or unspecified chronic kidney disease; N18.9 Chronic kidney disease, unspecified
CPT/HCPCS: 36415; 80053; 83036; 85025

== ENCOUNTER → 2022-10-12 09:08 | Outpatient (BNVA) | payer OTHER, MEDICAID, SELFPAY | PROVIDERS: PCP Internal Medicine; Visit Provider Internal Medicine | DX: I48.20 Chronic atrial fibrillation, unspecified (principal); Z79.01 Long term (current) use of anticoagulants; Z51.81 Encounter for therapeutic drug level monitoring | CPT/HCPCS: 85610; 99211 ==

== ENCOUNTER → 2022-10-26 08:54 | Outpatient (BNVA) | payer OTHER, MEDICAID, SELFPAY | PROVIDERS: PCP Internal Medicine; Visit Provider Internal Medicine | DX: I48.20 Chronic atrial fibrillation, unspecified (principal); Z79.01 Long term (current) use of anticoagulants; Z51.81 Encounter for therapeutic drug level monitoring | CPT/HCPCS: 85610; 99211 ==

== ENCOUNTER 2022-11-06 09:49 | Outpatient (REF) | payer OTHER, MEDICAID, SELFPAY ==
[2022-11-06 13:16] LABS: Prostate Specific Antigen 1.73 ng/mL (<0.05-4.0)
[2022-11-14 11:54] LABS: Testosterone, Total 423 ng/dL (250-1100)
== END 2022-11-06 09:50 | disposition home or self-care (01) ==
LOC: HO.LAB 09:49
PROVIDERS: PCP Internal Medicine; Visit Provider Urology
DX: Z12.5 Encounter for screening for malignant neoplasm of prostate (principal); N52.1 Erectile dysfunction due to diseases classified elsewhere; R97.20 Elevated prostate specific antigen [PSA]; E11.69 Type 2 diabetes mellitus with other specified complication
CPT/HCPCS: 36415; 84153; 84403

== ENCOUNTER 2022-11-22 08:23 | Outpatient (AMB) | payer OTHER, SELFPAY ==
--- NOTE | 2022-11-22 08:28 | A.OFFVIS_ITS ---
Intake Intake Visit Reasons: 6M PSA/Testo(Testo pending ) Intake Note: Patient is present for Follow Up LABS Urology Med:Tadalafil, Sildenafil Antibiotic Allergy: None Blood Thinner: Warfarin Allergies peanut [PEANUT] Adverse Reaction (Intermediate, Verified 11/22/22 08:29) ANGIOEDEMA SEASONAL ALLERGIES Allergy (Mild, Uncoded 11/22/22 08:29) STUFFY NOSE Medication List - Last Reconciled 11/22/22 by Efrem Gamboa MD canagliflozin (Invokana) 300 mg PO DAILY carvedilol 3.125 mg PO BID finerenone (Kerendia) mg PO flu vac qs 2019(4 yr up)CD(PF) mL IM fluticasone propionate 50 mcg/actuation 1 spray intranasal DAILY losartan 50 mg PO DAILY metformin ER 500 mg PO DAILY [omega3 PO] simvastatin mg PO tadalafil 10 mg PO DAILY 90 days valacyclovir 500 mg PO BID warfarin mg See Protocol PO HPI HPI Comments History of Present Illness Details Fanny is a pleasant [place] male. He is a patient of Dr. Felix. He seen for the following urologic conditions - erectile dysfunction - elevated PSA Testosterone normal limits PSA normal Would like to switch from on demand sildenafil to on demand tadalafil 20 mg Encouraged to go for brisk walk for 15-20 minutes following evening meal HBA1c - 03/20 7.0 Elevated PSA PSA 09/17 5.2, 03/20 2.8 HAYES 2+ 2016 - Prostate Biopsy Erectile dysfunction: with Diabetes Good response to combination oral therapy - daily tadalafil 10mg with on demand sildenafil 100mg He presents today for further evaluation of erectile dysfunction. Symptoms have been present for/since Ongoing. Procedure(s)/Diagnosis causing dysfunction include diabetes. Current treatment includes none. Prior therapies include oral medications - sildenafil on demand. At this time he experiences erections are partial and insufficient for vaginal penetration, that undergo rapid detumesence after penetration, YUDITH 1-7 Severe ED. Nocturnal erections Minimal. Currently they are in a stable relationship. Associated problems hypertension Yes diabetes Yes dyslipidemia Yes Recent labs included 11/15 T 500, 11/18 423 1.8 Review of Systems Const Denies chills and Denies fever(s) Card Reports no additional complaints and Denies syncope Resp Denies cough GI Denies abdominal pain and Denies heartburn Reports as per HPI and Denies change in libido Neuro Denies syncope Psych Denies change in libido Endo Denies change in libido Physical Exam Const General: cooperative, healthy appearing, comfortable and no acute distress Orientation/consciousness: patient oriented x3 HEENT Face and sinus: Yes normal facial exam Mouth: moist mucous membranes Neck Neck: Yes normal visual inspection, Yes full ROM and Yes trachea midline Chest Chest palpation & inspection: normal inspection of the chest Resp Effort & Inspection: normal respiratory effort, able to speak in complete sentences and no respiratory distress GI Inspection: Yes normal to inspection Back/Spine/Pelvis Cervical Spine: normal cervical lordosis Thoracic/Lumbar Spine: thoracic and lumbar spine normal to inspection Skin General skin exam: no rashes or lesions noted Neuro General: patient oriented x3, gait normal, tone normal and moves all extremities Extrem General: Yes normal to inspection and Yes capillary refill normal Assessment & Plan Assessment & Plan (1) Erectile dysfunction associated with type 2 diabetes mellitus: Code(s): E11.69 - Type 2 diabetes mellitus with other specified complication; N52.1 - Erectile dysfunction due to diseases classified elsewhere Plan Six month follow-up Orders: Orders Prostate Specific Antigen 11/06/22 R97.20 - Elevated prostate specific antigen [PSA] Medications: New tadalafil On demand medication take 60 minutes before intended activity 20 mg PO ONCE PRN 30 tabs 0RF sexual activity 30 days E11.69 - Type 2 diabetes mellitus with other specified complication, N52.1 - Erectile dysfunction due to diseases classified elsewhere Discontinued sildenafil administer 60 minutes before intended activity Discontinued Reason: Patient no longer taking 100 mg PO DAILY PRN 30 tabs 5RF sexual activity N52.9 - Male erectile dysfunction, unspecified Patient Instructions: Imaging studies, laboratory and physical exam results were discussed and reviewed in detail. No major barriers to patient understanding were identified. An opportunity to ask questions regarding the treatment plan was provided. All questions were answered. The patient expressed understanding and agreement with the above treatment plan. The patient is aware they should contact our office by phone for worsening of their current condition or the appearance of new urologic symptoms. Compliance is encouraged with any medications and followup testing that is ordered. It is a privilege to participate in the urologic care of your patient. If you have any questions or concerns regarding treatment for the above conditions, or other urologic issues, please do not hesitate to contact me. The office telephone contact is [phone]. This note is constructed using voice recognition software. While every effort has been made to ensure accuracy liner worker errors may have been included. Yours sincerely, Dr Efrem Gamboa MD, [facility] - Urology Providers of Expert, Compassionate Care for the Genitourinary System Coding Level of Care Code Est Pt Level 4 (94588) Diagnoses Erectile dysfunction associated with type 2 diabetes mellitus E11.69; N52.1
== END 2022-11-22 08:56 | disposition home or self-care (01) ==
PROVIDERS: Visit Provider Urology
DX: E11.69 Type 2 diabetes mellitus with other specified complication (principal); N52.1 Erectile dysfunction due to diseases classified elsewhere
CPT/HCPCS: 99214

== ENCOUNTER → 2022-11-22 08:23 | Outpatient (BNVA) | payer OTHER, SELFPAY | PROVIDERS: Visit Provider Urology | DX: E11.69 Type 2 diabetes mellitus with other specified complication (principal); N52.1 Erectile dysfunction due to diseases classified elsewhere | CPT/HCPCS: 99212 ==

== ENCOUNTER 2022-11-23 08:55 | Outpatient (AMB) | payer OTHER, SELFPAY ==
[2022-11-23 09:02] LABS: Prothrombin Time Whole Bld POC 35.3 sec (11.1-13.5); ~PT, ~INR - Anti Coag Clinic 2.9 (0.9-1.1)
--- NOTE | 2022-11-23 09:04 | MHC.OFFVISCO ---
Intake Intake Visit Reasons: Anticoagulation Allergies peanut [PEANUT] Adverse Reaction (Intermediate, Verified 11/23/22 08:56) ANGIOEDEMA SEASONAL ALLERGIES Allergy (Mild, Uncoded 11/23/22 08:56) STUFFY NOSE Medication List - Last Reconciled 11/23/22 by Jessica De Anda, RN canagliflozin (Invokana) 300 mg PO DAILY carvedilol 3.125 mg PO BID finerenone (Kerendia) mg PO flu vac qs 2019(4 yr up)CD(PF) mL IM fluticasone propionate 50 mcg/actuation 1 spray intranasal DAILY losartan 50 mg PO DAILY metformin ER 500 mg PO DAILY [omega3 PO] simvastatin mg PO tadalafil 10 mg PO DAILY 90 days tadalafil 20 mg PO ONCE PRN 30 days valacyclovir 500 mg PO BID warfarin mg See Protocol PO Nursing Note Amb to ACS feeling well Medications and supplements reviewed No changes in health, diet, medications, or supplements Denies any unusual signs and symptoms of bruising, bleeding Denies any new Chest pain, SOB, or clotting INR: 2.9 top of therapeutic range Nutritional guidance given: ok for moderate green today then balance greens and reds in diet Dose: continue usual dosing; 6mg x 2 days and 3mg x 5 days F/U INR: 4 weeks Patient verbalizes understanding of instructions given with accurate read back/ teach back of dosing Coding Level of Care Code Est Patient Level 1 Diagnoses Current use of anticoagulant therapy Z79.01 Time Spent (min) 15 Assessment & Plan Assessment & Plan (1) Current use of anticoagulant therapy: Code(s): Z79.01 - [employer] (current) use of anticoagulants Category: Medical
== END 2022-11-23 09:07 | disposition home or self-care (01) ==
LOC: HO.ACS 08:55
PROVIDERS: PCP Internal Medicine; Visit Provider Internal Medicine
DX: Z79.01 Long term (current) use of anticoagulants (principal)

== ENCOUNTER → 2022-11-23 08:55 | Outpatient (BNVA) | payer OTHER, SELFPAY | PROVIDERS: PCP Internal Medicine; Visit Provider Internal Medicine | DX: I48.20 Chronic atrial fibrillation, unspecified (principal); Z79.01 Long term (current) use of anticoagulants; Z51.81 Encounter for therapeutic drug level monitoring | CPT/HCPCS: 85610; 99211 ==

== ENCOUNTER 2022-12-21 09:04 | Outpatient (AMB) | payer OTHER, SELFPAY ==
[2022-12-21 09:14] LABS: Prothrombin Time Whole Bld POC 32.8 sec (11.1-13.5); ~PT, ~INR - Anti Coag Clinic 2.7 (0.9-1.1)
--- NOTE | 2022-12-21 09:15 | MHC.OFFVISCO ---
Intake Intake Visit Reasons: Anticoagulation Allergies peanut [PEANUT] Adverse Reaction (Intermediate, Verified 12/21/22 09:09) ANGIOEDEMA SEASONAL ALLERGIES Allergy (Mild, Uncoded 12/21/22 09:09) STUFFY NOSE Medication List - Last Reconciled 12/21/22 by Jessica De Anda, RN canagliflozin (Invokana) 300 mg PO DAILY carvedilol 3.125 mg PO BID finerenone (Kerendia) mg PO flu vac qs 2019(4 yr up)CD(PF) mL IM fluticasone propionate 50 mcg/actuation 1 spray intranasal DAILY losartan 50 mg PO DAILY metformin ER 500 mg PO DAILY [omega3 PO] simvastatin mg PO tadalafil 10 mg PO DAILY 90 days tadalafil 20 mg PO ONCE PRN 30 days valacyclovir 500 mg PO BID warfarin mg See Protocol PO Nursing Note Amb to ACS feeling well Medications and supplements reviewed No changes in health, diet, medications, or supplements Denies any unusual signs and symptoms of bruising, bleeding Denies any new Chest pain, SOB, or clotting INR: 2.7 in therapeutic range Nutritional guidance given: balance greens and reds in diet Dose: continue usual dosing;6mg x 2 days and 3mg x 5 days F/U INR: 4 weeks Patient verbalizes understanding of instructions given with accurate read back/ teach back of dosing Coding Level of Care Code Est Patient Level 1 Diagnoses Current use of anticoagulant therapy Z79.01 Time Spent (min) 15 Results AMB INR Fingerstick AMB INR Fingerstick 2.7 Last Edit by Jessica De Anda RN on 12/21/22 09:14 interface failure Assessment & Plan Assessment & Plan (1) Current use of anticoagulant therapy: Code(s): Z79.01 - [facility] (current) use of anticoagulants Category: Medical
== END 2022-12-21 09:18 | disposition home or self-care (01) ==
LOC: HO.ACS 09:04
PROVIDERS: PCP Internal Medicine; Visit Provider Internal Medicine
DX: Z79.01 Long term (current) use of anticoagulants (principal)

== ENCOUNTER → 2022-12-21 09:04 | Outpatient (BNVA) | payer OTHER, SELFPAY | PROVIDERS: PCP Internal Medicine; Visit Provider Internal Medicine | DX: I48.20 Chronic atrial fibrillation, unspecified (principal); Z79.01 Long term (current) use of anticoagulants; Z51.81 Encounter for therapeutic drug level monitoring | CPT/HCPCS: 85610; 99211 ==

== ENCOUNTER 2022-12-21 09:20 | Outpatient (REF) | payer OTHER, SELFPAY ==
[2022-12-21 10:58] LABS: Appearance Urine Clear; Color Urine Yellow; Glucose Urine UA >=1000 mg/dL (Negative); Leukocyte Esterase Urine Negative (Negative); Nitrite Urine Negative (Negative); PH 5.5 (5.0-9.0); Specific Gravity - Urine >= 1.030 (1.005-1.025); UMIC TRIGGER UA YES; Urine Blood Negative (Negative); Urine Ketones Negative (Negative); Urine Protein 30 (1+) mg/dL (Neg-Trace)
[2022-12-21 11:04] LABS: Bacteria Urine None Seen (None Seen); Hyaline Casts Urine 0-2 /LPF (0-2); RBC Urine 0-2 /HPF (0-2); Squamous Epithelial Cell Urine 0-2 /HPF (0-2); WBC Urine 0-5 /HPF (0-5)
[2022-12-21 11:05] LABS: Anion Gap 11 (12-20); Blood Urea Nitrogen 16 mg/dL (9-16); Calcium 8.8 mg/dL (8.4-10.2); Carbon Dioxide 26 mmol/L (22-29); Chloride 105 mmol/L (96-108); Estimated Glomerular Filt Rate > 60; Potassium 4.3 mmol/L (3.3-5.1); Sodium 138 mmol/L (135-145)
[2022-12-21 12:48] LABS: Creatinine Urine 74.92 mg/dL; Microalbum/Creatinine Ratio Ur 408.4 ug/mg cr (<30); Protein/Creatinine Ratio, Ur 0.64 (<0.2); Total Protein Urine Random 48 mg/dL (<12)
== END 2022-12-21 09:21 | disposition home or self-care (01) ==
LOC: HO.10HDL 09:20
PROVIDERS: Visit Provider Internal Medicine Nephrology
DX: E11.21 Type 2 diabetes mellitus with diabetic nephropathy (principal); R80.1 Persistent proteinuria, unspecified; N18.2 Chronic kidney disease, stage 2 (mild)
CPT/HCPCS: 36415; 80051; 81001; 82043; 82310; 82565; 84156; 84520

== ENCOUNTER 2023-01-18 09:01 | Outpatient (AMB) | payer OTHER, SELFPAY ==
--- NOTE | 2023-01-18 09:11 | MHC.OFFVISCO ---
Intake Intake Visit Reasons: Anticoagulation Allergies peanut [PEANUT] Adverse Reaction (Intermediate, Verified 01/18/23 09:07) ANGIOEDEMA SEASONAL ALLERGIES Allergy (Mild, Uncoded 01/18/23 09:07) STUFFY NOSE Medication List - Last Reconciled 01/18/23 by Neelam Villalobos, RN canagliflozin (Invokana) 300 mg PO DAILY carvedilol 3.125 mg PO BID finerenone (Kerendia) mg PO flu vac qs 2019(4 yr up)CD(PF) mL IM fluticasone propionate 50 mcg/actuation 1 spray intranasal DAILY losartan 50 mg PO DAILY metformin ER 500 mg PO DAILY [omega3 PO] simvastatin mg PO tadalafil 20 mg PO ONCE PRN 30 days valacyclovir 500 mg PO BID warfarin mg See Protocol PO Nursing Note INR: 2.1- in therapeutic range Medications and supplements reviewed- no changes No changes in health, diet, medications, or supplements, Denies any signs and symptoms of bleeding or bruising or clotting. Bleeding, bruising, clotting discussed Nutritional guidance given Dose: 6mg x 2, 3mg x 5 F/U INR: pt req 4 weeks Patient verbalizes understanding of instructions given pt states twisted left knee yesterday, wearing brace to knee- enc to notify pcp if not better prn tylenol- aware increased usage to add greenreji Coding Level of Care Code Est Patient Level 1 Diagnoses Current use of anticoagulant therapy Z79.01 Assessment & Plan Assessment & Plan (1) Current use of anticoagulant therapy: Code(s): Z79.01 - [employer] (current) use of anticoagulants Category: Medical
[2023-01-18 09:12] LABS: Prothrombin Time Whole Bld POC 25.5 sec (11.1-13.5); ~PT, ~INR - Anti Coag Clinic 2.1 (0.9-1.1)
== END 2023-01-18 09:16 | disposition home or self-care (01) ==
LOC: HO.ACS 09:01
PROVIDERS: PCP Internal Medicine; Visit Provider Internal Medicine
DX: Z79.01 Long term (current) use of anticoagulants (principal)

== ENCOUNTER → 2023-01-18 09:01 | Outpatient (BNVA) | payer OTHER, SELFPAY | PROVIDERS: PCP Internal Medicine; Visit Provider Internal Medicine | DX: I48.20 Chronic atrial fibrillation, unspecified (principal); Z79.01 Long term (current) use of anticoagulants; Z51.81 Encounter for therapeutic drug level monitoring | CPT/HCPCS: 85610; 99211 ==

== ENCOUNTER 2023-02-15 08:54 | Outpatient (AMB) | payer OTHER, SELFPAY ==
[2023-02-15 09:05] LABS: Prothrombin Time Whole Bld POC 29.1 sec (11.1-13.5); ~PT, ~INR - Anti Coag Clinic 2.4 (0.9-1.1)
--- NOTE | 2023-02-15 09:08 | MHC.OFFVISCO ---
Intake Intake Visit Reasons: Anticoagulation Allergies peanut [PEANUT] Adverse Reaction (Intermediate, Verified 02/15/23 09:00) ANGIOEDEMA SEASONAL ALLERGIES Allergy (Mild, Uncoded 01/18/23 09:07) STUFFY NOSE Medication List - Last Reconciled 02/15/23 by Rhoda Enrique, RN canagliflozin (Invokana) 300 mg PO DAILY carvedilol 3.125 mg PO BID finerenone (Kerendia) mg PO flu vac qs 2019(4 yr up)CD(PF) mL IM fluticasone propionate 50 mcg/actuation 1 spray intranasal DAILY losartan 50 mg PO DAILY metformin ER 500 mg PO DAILY [omega3 PO] simvastatin mg PO tadalafil 20 mg PO ONCE PRN 30 days valacyclovir 500 mg PO BID warfarin mg See Protocol PO Nursing Note NO CP,SOB,DIET/MED CHANGES,FALLS OR SX OF BLEEDING. CONTINBUE PRESENT DOSE AND FOLLOW-UP IN 4 WEEKS. GOOD UNDERSTANDING OF DOSING INSTR. Coding Level of Care Code Est Patient Level 1 Diagnoses Current use of anticoagulant therapy Z79.01 Assessment & Plan Assessment & Plan (1) Current use of anticoagulant therapy: Code(s): Z79.01 - [facility] (current) use of anticoagulants Category: Medical
== END 2023-02-15 09:09 | disposition home or self-care (01) ==
LOC: HO.ACS 08:54
PROVIDERS: PCP Internal Medicine; Visit Provider Internal Medicine
DX: Z79.01 Long term (current) use of anticoagulants (principal)

== ENCOUNTER → 2023-02-15 08:54 | Outpatient (BNVA) | payer OTHER, SELFPAY | PROVIDERS: PCP Internal Medicine; Visit Provider Internal Medicine | DX: I48.20 Chronic atrial fibrillation, unspecified (principal); Z51.81 Encounter for therapeutic drug level monitoring; Z79.899 Other long term (current) drug therapy | CPT/HCPCS: 85610; 99211 ==

== ENCOUNTER 2023-03-15 08:58 | Outpatient (AMB) | payer OTHER, SELFPAY ==
[2023-03-15 09:22] LABS: Prothrombin Time Whole Bld POC 28.7 sec (11.1-13.5); ~PT, ~INR - Anti Coag Clinic 2.4 (0.9-1.1)
--- NOTE | 2023-03-15 09:23 | MHC.OFFVISCO ---
Intake Intake Visit Reasons: Anticoagulation Allergies peanut [PEANUT] Adverse Reaction (Intermediate, Verified 03/15/23 09:17) ANGIOEDEMA SEASONAL ALLERGIES Allergy (Mild, Uncoded 03/15/23 09:17) STUFFY NOSE Medication List - Last Reconciled 03/15/23 by Jessica De Anda RN canagliflozin (Invokana) 300 mg PO DAILY carvedilol 3.125 mg PO BID finerenone (Kerendia) mg PO fluticasone propionate 50 mcg/actuation 1 spray intranasal DAILY losartan 50 mg PO DAILY metformin ER 500 mg PO DAILY [omega3 PO] simvastatin mg PO tadalafil 20 mg PO ONCE PRN 30 days valacyclovir 500 mg PO BID warfarin mg See Protocol PO Nursing Note Amb to ACS feeling well Medications and supplements reviewed No changes in health, diet, medications, or supplements Denies any unusual signs and symptoms of bruising, bleeding Denies any new Chest pain, SOB, or clotting INR: 2.4 in therapeutic range Nutritional guidance given: balance greens and reds in diet Dose: continue usual dosing; 6mg x 2 days and 3mg x 5 days F/U INR: 4 weeks Patient verbalizes understanding of instructions given with accurate read back/ teach back of dosing Questionnaires HAS-BLED Does the patient had uncontrolled Hypertension?: No Does the patient have renal disease?: No Does the patient have liver disease?: No Does the patient have a history of stroke?: No Has the patient had major bleeding or predisposition to bleeding?: No Does the patient have labile INRs?: No Is the patient over 65 years of age?: Yes Is the patient on medications that gives them a predisposition to bleeding?: Yes Does the patient use alcohol?: No HAS-BLED Score: 2 CHADSVASC Age: <65 Gender: Male Does the patient have a history of CHF?: No Does the patient have a history of Hypertension?: Yes Does the patient have a history of Stroke/TIA/Thromboembolism?: No Does the patient have a history of Vascular Disease (prior SC, PAD or aortic plaque)?: No Does the patient have a history of Diabetes?: Yes CHADS VACS Score: 2 Dav Prediction Score Rsk VTE Active Cancer: No Previous VTE, excluding superficial vein thrombosis: No Reduced mobility: No Already known Thrombophilic Condition: Yes With-in last month Trauma and/or Surgery: No Elderly 70 year or older: No Heart and/or Respiratory Failure: No Acute Myocardial infarction and/or Ischemic Stroke: No Acute Infection and/or Rheumatologic Disorder: No Obesity (BMI 30 or greater): No Ongoing Hormonal Treatment: No Score: 3 Dav Score less than 4; Low Risk of VTE Dav Score 4 or greater; High Risk of VTE Coding Level of Care Code Est Patient Level 1 Diagnoses Current use of anticoagulant therapy Z79.01 Time Spent (min) 15 Assessment & Plan Assessment & Plan (1) Current use of anticoagulant therapy: Code(s): Z79.01 - alf (current) use of anticoagulants Category: Medical
== END 2023-03-15 09:55 | disposition home or self-care (01) ==
LOC: HO.ACS 08:58
PROVIDERS: PCP Internal Medicine; Visit Provider Internal Medicine
DX: Z79.01 Long term (current) use of anticoagulants (principal)

== ENCOUNTER → 2023-03-15 08:58 | Outpatient (BNVA) | payer OTHER, SELFPAY | PROVIDERS: PCP Internal Medicine; Visit Provider Internal Medicine ==

== ENCOUNTER 2023-03-15 09:31 | Outpatient (REF) | payer OTHER, SELFPAY ==
[2023-03-15 10:38] LABS: MANUAL DIFF FLAG NO
[2023-03-15 10:43] LABS: Basophils Percent Auto 0.7 % (0-2); Eosinophils Absolute Auto 0.1 X10*3/uL (0.0-0.4); Eosinophils Percent Auto 1.1 % (0-4); Hematocrit 48.3 % (42.0-52.0); Hemoglobin 16.3 g/dl (14.0-18.0); Lymphocytes Absolute Auto 1.3 X10*3/uL (1.2-4.9); Lymphocytes Percent Auto 27.2 % (20-40); Mean Corpuscular HGB Conc 33.7 g/dl (31.0-36.0); Mean Corpuscular Hemoglobin 31.1 pg (27.0-33.0); Mean Corpuscular Volume 92.2 fL (80.0-98.0); Mean Platelet Volume 10.1 fL (9.4-12.4); Monocytes Absolute Auto 0.4 X10*3/uL (0.1-1.2); Monocytes Percent Auto 7.6 % (2-11); Neutrophils Absolute Auto 2.9 x10*3/uL (2.0-8.3); Neutrophils Percent Auto 63.4 % (45-73); Platelet Count 176 X10*3/uL (160-400); Red Blood Count 5.24 X10*6/uL (4.60-5.80); Red Cell Distribution Width 11.9 % (11.0-16.0); White Blood Count 4.6 X10*3/uL (4.8-10.8)
[2023-03-15 10:56] LABS: Estimated Average Glucose 157 mg/dL; Hemoglobin A1c % 7.1 % (<6.0)
[2023-03-15 11:10] LABS: Alanine Aminotransferase 14 U/L (0-40); Albumin Level 4.1 g/dL (3.5-5.0); Alkaline Phosphatase 49 U/L (39-117); Anion Gap 10 (12-20); Aspartate Amino Transferase 20 U/L (5-37); Bilirubin Total 1.6 mg/dL (0.0-1.0); Blood Urea Nitrogen 14 mg/dL (9-16); Calcium 8.8 mg/dL (8.4-10.2); Carbon Dioxide 27 mmol/L (22-29); Chloride 104 mmol/L (96-108); Cholesterol 150 mg/dL (<200); Estimated Glomerular Filt Rate > 60; Glucose Fasting 148 mg/dL (60-99); HDL Cholesterol 45 mg/dL (>40); LDL Cholesterol Calculated 84 mg/dL (<100); Potassium 4.2 mmol/L (3.3-5.1); Sodium 137 mmol/L (135-145); Total Protein 7.8 g/dL (6.5-8.0); Triglycerides 105 mg/dL (<150)
[2023-03-15 11:23] LABS: Prostate Specific Antigen Scr 2.57 ng/mL (<0.05-4.0)
[2023-03-15 11:48] LABS: Creatinine Urine 77.89 mg/dL
[2023-03-15 12:06] LABS: Microalbum/Creatinine Ratio Ur 925.6 ug/mg cr (<30)
== END 2023-03-15 09:32 | disposition home or self-care (01) ==
LOC: HO.10HDL 09:31
PROVIDERS: Visit Provider Internal Medicine
DX: I48.20 Chronic atrial fibrillation, unspecified (principal); I10 Essential (primary) hypertension; E78.00 Pure hypercholesterolemia, unspecified; E11.9 Type 2 diabetes mellitus without complications; R35.1 Nocturia; E55.9 Vitamin D deficiency, unspecified; Z51.81 Encounter for therapeutic drug level monitoring; Z79.01 Long term (current) use of anticoagulants; Z12.5 Encounter for screening for malignant neoplasm of prostate
CPT/HCPCS: 36415; 80053; 80061; 82043; 82306; 82570; 83036; 84153; 85025; 85610; 99211

== ENCOUNTER 2023-04-12 08:17 | Outpatient (REF) | payer OTHER, SELFPAY ==
--- NOTE | ~2023-04-12 | XR_ITS ---
EXAMINATION: XR KNEE, LEFT CLINICAL INFORMATION: Left knee pain COMPARISON: None available. TECHNIQUE: Four views of the left knee. FINDINGS: BONES: Bony structures are intact. There is no focal bone destruction or periosteal reaction seen. JOINTS: Alignment of joints is normal. SOFT TISSUE: Soft tissue is normal. No radiopaque foreign body or abnormal air collection is seen. XR/XR knee LT 4V IMPRESSION: 1. Normal x-rays of left knee. No fracture or dislocation or signs of osteomyelitis are found.
== END 2023-04-12 08:18 | disposition home or self-care (01) ==
LOC: HO.XRAY 08:17
PROVIDERS: PCP Internal Medicine; Visit Provider Internal Medicine
DX: M25.562 Pain in left knee (principal); I48.20 Chronic atrial fibrillation, unspecified; Z51.81 Encounter for therapeutic drug level monitoring; Z79.01 Long term (current) use of anticoagulants
CPT/HCPCS: 73564; 85610; 99211

== ENCOUNTER 2023-04-12 08:40 | Outpatient (AMB) | payer OTHER, SELFPAY ==
[2023-04-12 08:45] LABS: Prothrombin Time Whole Bld POC 28.1 sec (11.1-13.5); ~PT, ~INR - Anti Coag Clinic 2.3 (0.9-1.1)
--- NOTE | 2023-04-12 08:46 | MHC.OFFVISCO ---
Intake Intake Visit Reasons: Anticoagulation Allergies peanut [PEANUT] Adverse Reaction (Intermediate, Verified 04/12/23 08:40) ANGIOEDEMA SEASONAL ALLERGIES Allergy (Mild, Uncoded 04/12/23 08:40) STUFFY NOSE Medication List - Last Reconciled 04/12/23 by Jessica De Anda RN canagliflozin (Invokana) 300 mg PO DAILY carvedilol 3.125 mg PO BID finerenone (Kerendia) mg PO fluticasone propionate 50 mcg/actuation 1 spray intranasal DAILY losartan 50 mg PO DAILY metformin ER 500 mg PO DAILY [omega3 PO] simvastatin mg PO tadalafil 20 mg PO ONCE PRN 30 days valacyclovir 500 mg PO BID warfarin mg See Protocol PO Nursing Note Amb to ACS feeling well, sts he was here early for visit as he had xray on left leg this am, sts he banged it into the corner of a desk denies any bruising bit sts it is a little swollen, sts pain is better hurts only when I go from sit to stand no pain meds, sts he wraps it at night Medications and supplements reviewed No other changes in health, diet, medications, or supplements Denies any unusual signs and symptoms of bruising, bleeding Denies any new Chest pain, SOB, or clotting INR: 2.3 in therapeutic range Nutritional guidance given: balance greens and reds in diet Dose: continue usual dosing; 6mg x 2 days and 3mg x 5 days F/U INR: 5 weeks, call if any new meds related to the knee Patient verbalizes understanding of instructions given with accurate read back/ teach back of dosing Coding Level of Care Code Est Patient Level 1 Diagnoses Current use of anticoagulant therapy Z79.01 Time Spent (min) 15 Assessment & Plan Assessment & Plan (1) Current use of anticoagulant therapy: Code(s): Z79.01 - [facility] (current) use of anticoagulants Category: Medical
== END 2023-04-12 09:22 | disposition home or self-care (01) ==
LOC: HO.ACS 08:40
PROVIDERS: PCP Internal Medicine; Visit Provider Internal Medicine
DX: Z79.01 Long term (current) use of anticoagulants (principal)

== ENCOUNTER 2023-05-17 08:54 | Outpatient (AMB) | payer OTHER, SELFPAY ==
--- NOTE | 2023-05-17 09:01 | MHC.OFFVISCO ---
Intake Intake Visit Reasons: Anticoagulation Allergies peanut [PEANUT] Adverse Reaction (Intermediate, Verified 05/17/23 08:57) ANGIOEDEMA SEASONAL ALLERGIES Allergy (Mild, Uncoded 05/17/23 08:57) STUFFY NOSE Medication List - Last Reconciled 05/17/23 by Neelam Villalobos, RN canagliflozin (Invokana) 300 mg PO DAILY carvedilol 3.125 mg PO BID finerenone (Kerendia) mg PO fluticasone propionate 50 mcg/actuation 1 spray intranasal DAILY losartan 50 mg PO DAILY metformin ER 500 mg PO DAILY [omega3 PO] simvastatin mg PO tadalafil 20 mg PO ONCE PRN 30 days valacyclovir 500 mg PO BID warfarin mg See Protocol PO Nursing Note INR: 2.2- in therapeutic range of 2-3 Medications and supplements reviewed No changes in health, diet, medications, or supplements, Denies any signs and symptoms of bleeding or bruising or clotting. Bleeding, bruising, clotting discussed Nutritional guidance given Dose: 6mg x 2, 3mg x 5 F/U INR: 4 weeks Patient verbalizes understanding of instructions given pt states may have dental extraction- HAS APPT WITH DENTIST on 06/06/23- instructed to ask about hold ing warfarin and pt told will need inr prior to proc pt states will call acs with exact date of procedure Coding Level of Care Code Est Patient Level 1 Diagnoses Current use of anticoagulant therapy Z79.01 Assessment & Plan Assessment & Plan (1) Current use of anticoagulant therapy: Code(s): Z79.01 - [facility] (current) use of anticoagulants Category: Medical
[2023-05-17 09:02] LABS: Prothrombin Time Whole Bld POC 26.1 sec (11.1-13.5); ~PT, ~INR - Anti Coag Clinic 2.2 (0.9-1.1)
== END 2023-05-17 09:06 | disposition home or self-care (01) ==
LOC: HO.ACS 08:54
PROVIDERS: PCP Internal Medicine; Visit Provider Internal Medicine
DX: Z79.01 Long term (current) use of anticoagulants (principal)

== ENCOUNTER → 2023-05-17 08:54 | Outpatient (BNVA) | payer OTHER, SELFPAY | PROVIDERS: PCP Internal Medicine; Visit Provider Internal Medicine | DX: I48.20 Chronic atrial fibrillation, unspecified (principal); Z79.01 Long term (current) use of anticoagulants; Z51.81 Encounter for therapeutic drug level monitoring | CPT/HCPCS: 85610; 99211 ==

== ENCOUNTER 2023-05-29 08:57 | Outpatient (AMB) | payer OTHER, SELFPAY ==
--- NOTE | 2023-05-29 09:05 | A.OFFVIS_ITS ---
Intake Intake Visit Reasons: 6M PSA/PVR(Set) Intake Note: Patient is Present for Follow Up PSA/PVR Urology Medication: Tadalafil, Sildenafil Antibiotic Allergies: None Blood Thinners: Warfarin PVR: Allergies peanut [PEANUT] Adverse Reaction (Intermediate, Verified 05/29/23 09:05) ANGIOEDEMA SEASONAL ALLERGIES Allergy (Mild, Uncoded 05/29/23 09:05) STUFFY NOSE Medication List - Last Reconciled 05/29/23 by Efrem Gamboa MD canagliflozin (Invokana) 300 mg PO DAILY carvedilol 3.125 mg PO BID finerenone (Kerendia) mg PO fluticasone propionate 50 mcg/actuation 1 spray intranasal DAILY losartan 50 mg PO DAILY metformin ER 500 mg PO DAILY sildenafil 100 mg PO ONCE PRN 30 days simvastatin mg PO tadalafil 10 mg PO DAILY 90 days valacyclovir 500 mg PO BID warfarin mg See Protocol PO HPI HPI Comments History of Present Illness Details Fanny is a pleasant [place] male. He is a patient of Dr. Felix. He seen for the following urologic conditions - erectile dysfunction in setting of charis betes - elevated PSA Six-month follow-up from switch to daily tadalafil with on demand sildenafil May increase on demand sildenafil dose to a maximum 200 mg Encourage walking after meals HBA1c - 03/20 7.0, 03/21 7.1 on Invokana and metformin Elevated PSA PSA 09/17 5.2, 03/20 2.8, 03/21 2.6 HAYES 2+ 2016 - Prostate Biopsy Erectile dysfunction: with Diabetes Good response to combination oral therapy - daily tadalafil 10mg with on demand sildenafil 100mg He presents today for further evaluation of erectile dysfunction. Symptoms have been present for/since Ongoing. Procedure(s)/Diagnosis causing dysfunction include diabetes. Current treatment includes none. Prior therapies include oral medications - sildenafil on demand. At this time he experiences erections are partial and insufficient for vaginal penetration, that undergo rapid detumesence after penetration, YUDITH 1-7 Severe ED. Nocturnal erections Minimal. Currently they are in a stable relationship. Associated problems hypertension Yes diabetes Yes dyslipidemia Yes Recent labs included 11/15 T 500, 11/18 423 1.8 Review of Systems Const Denies chills and Denies fever(s) Card Reports no additional complaints and Denies syncope Resp Denies cough GI Denies abdominal pain and Denies heartburn Reports as per HPI and Denies change in libido Neuro Denies syncope Psych Denies change in libido Endo Denies change in libido Physical Exam Const General: cooperative, healthy appearing, comfortable and no acute distress Orientation/consciousness: patient oriented x3 HEENT Face and sinus: Yes normal facial exam Mouth: moist mucous membranes Neck Neck: Yes normal visual inspection, Yes full ROM and Yes trachea midline Chest Chest palpation & inspection: normal inspection of the chest Resp Effort & Inspection: normal respiratory effort, able to speak in complete sentences and no respiratory distress GI Inspection: Yes normal to inspection Back/Spine/Pelvis Cervical Spine: normal cervical lordosis Thoracic/Lumbar Spine: thoracic and lumbar spine normal to inspection Skin General skin exam: no rashes or lesions noted Neuro General: patient oriented x3, gait normal, tone normal and moves all extremities Extrem General: Yes normal to inspection and Yes capillary refill normal Assessment & Plan Assessment & Plan (1) Erectile dysfunction associated with type 2 diabetes mellitus: Code(s): E11.69 - Type 2 diabetes mellitus with other specified complication; N52.1 - Erectile dysfunction due to diseases classified elsewhere (2) Elevated PSA: Code(s): R97.20 - Elevated prostate specific antigen [PSA] Plan 12 month f/u labs and PVR Orders: Orders AMB Post Void Residual by ultrasound Today R35.1 - Nocturia Medications: New sildenafil Take 60 minutes before an tendon activity 100 mg PO ONCE PRN 30 tabs 1RF sexual activity 30 days Changed From tadalafil On demand medication take 60 minutes before intended activity 20 mg PO ONCE 30 days PRN 30 tabs 0RF sexual activity E11.69 - Type 2 diabetes mellitus with other specified complication, N52.1 - Erectile dysfunction due to diseases classified elsewhere To tadalafil Daily medication 10 mg PO DAILY 90 tabs 1RF sexual activity 90 days E11.69 - Type 2 diabetes mellitus with other specified complication, N52.1 - Erectile dysfunction due to diseases classified elsewhere Patient Instructions: Imaging studies, laboratory and physical exam results were discussed and reviewed in detail. No major barriers to patient understanding were identified. An opportunity to ask questions regarding the treatment plan was provided. All questions were answered. The patient expressed understanding and agreement with the above treatment plan. The patient is aware they should contact our office by phone for worsening of their current condition or the appearance of new urologic symptoms. Compliance is encouraged with any medications and followup testing that is ordered. It is a privilege to participate in the urologic care of your patient. If you have any questions or concerns regarding treatment for the above conditions, or other urologic issues, please do not hesitate to contact me. The office telephone contact is [phone]. This note is constructed using voice recognition software. While every effort esteban s been made to ensure accuracy health officer errors may have been included. Yours sincerely, Dr Efrem Gamboa MD, [facility] - Urology Providers of Expert, Compassionate Care for the Genitourinary System Coding Level of Care Code Est Pt Level 4 (45868) Diagnoses Erectile dysfunction associated with type 2 diabetes mellitus E11.69; N52.1 Elevated PSA R97.20
== END 2023-05-29 09:24 | disposition home or self-care (01) ==
PROVIDERS: PCP Internal Medicine; Visit Provider Urology
DX: E11.69 Type 2 diabetes mellitus with other specified complication (principal); N52.1 Erectile dysfunction due to diseases classified elsewhere; R97.20 Elevated prostate specific antigen [PSA]
CPT/HCPCS: 99214

== ENCOUNTER → 2023-05-29 08:57 | Outpatient (BNVA) | payer OTHER, SELFPAY | PROVIDERS: PCP Internal Medicine; Visit Provider Urology | DX: R97.20 Elevated prostate specific antigen [PSA] (principal); E11.69 Type 2 diabetes mellitus with other specified complication; N52.1 Erectile dysfunction due to diseases classified elsewhere; Z79.899 Other long term (current) drug therapy | CPT/HCPCS: 99212 ==

== ENCOUNTER 2023-06-21 08:51 | Outpatient (AMB) | payer OTHER, SELFPAY ==
[2023-06-21 09:04] LABS: Prothrombin Time Whole Bld POC 22.3 sec (11.1-13.5); ~PT, ~INR - Anti Coag Clinic 1.9 (0.9-1.1)
--- NOTE | 2023-06-21 09:11 | MHC.OFFVISCO ---
Intake Intake Visit Reasons: Anticoagulation Allergies peanut [PEANUT] Adverse Reaction (Intermediate, Verified 06/21/23 08:58) ANGIOEDEMA SEASONAL ALLERGIES Allergy (Mild, Uncoded 05/29/23 09:05) STUFFY NOSE Medication List - Last Reconciled 06/21/23 by Rhoda Enrique, RN canagliflozin (Invokana) 300 mg PO DAILY carvedilol 3.125 mg PO BID finerenone (Kerendia) mg PO fluticasone propionate 50 mcg/actuation 1 spray intranasal DAILY losartan 50 mg PO DAILY metformin ER 500 mg PO DAILY sildenafil 100 mg PO ONCE PRN 30 days simvastatin mg PO tadalafil 10 mg PO DAILY 90 days valacyclovir 500 mg PO BID warfarin mg See Protocol PO Nursing Note PT.STILL UNSURE OF DENTAL EXTRACTION DATE. HE HAS INSTR.RE LOVENOX BRIDGING FORM . PT.AGREES TO CALL [facility] WITH UPDATE WHEN HE IS AWARE. IN MEANTIME WILL CONTINUE PRESENT DOSING AND FOLLOW-UP IN 2 WEEKS. NO GREENS 1-2 DAYS GOOD UNDERSTANDING OF INSTR.VERB. Coding Level of Care Code Est Patient Level 1 Diagnoses Current use of anticoagulant therapy Z79.01 Assessment & Plan Assessment & Plan (1) Current use of anticoagulant therapy: Code(s): Z79.01 - alf (current) use of anticoagulants Category: Medical
== END 2023-06-21 09:18 | disposition home or self-care (01) ==
LOC: HO.ACS 08:51
PROVIDERS: PCP Internal Medicine; Visit Provider Internal Medicine
DX: Z79.01 Long term (current) use of anticoagulants (principal)

== ENCOUNTER → 2023-06-21 08:51 | Outpatient (BNVA) | payer OTHER, SELFPAY | PROVIDERS: PCP Internal Medicine; Visit Provider Internal Medicine | DX: I48.20 Chronic atrial fibrillation, unspecified (principal); Z79.01 Long term (current) use of anticoagulants; Z51.81 Encounter for therapeutic drug level monitoring | CPT/HCPCS: 85610; 99211 ==

== ENCOUNTER 2023-07-05 08:55 | Outpatient (AMB) | payer OTHER, SELFPAY ==
[2023-07-05 09:10] LABS: Prothrombin Time Whole Bld POC 19.1 sec (11.1-13.5); ~PT, ~INR - Anti Coag Clinic 1.6 (0.9-1.1)
--- NOTE | 2023-07-05 10:08 | MHC.OFFVISCO ---
Intake Intake Visit Reasons: Anticoagulation Allergies peanut [PEANUT] Adverse Reaction (Intermediate, Verified 07/05/23 08:55) ANGIOEDEMA SEASONAL ALLERGIES Allergy (Mild, Uncoded 07/05/23 08:55) STUFFY NOSE Nursing Note INR: 1.6 out of therapeutic range of 2-3 pt scheduled for tooth extraction on 07/10, states he has tried to have INR lower by eating greens in prep for procedure. Medications and supplements reviewed: no changes No changes in health Denies any signs and symptoms of bleeding or bruising or clotting. Bleeding, bruising, clotting discussed Nutritional guidance given: after procedure, pt knows not to have greens until INR rechecked Dosing instruction sheet explained and given to pt. Last dose of warfarin is today and pt will start lovenox tomorrow 8pm. To hold lovenox on 07/09 and 07/10. Procedure is 07/10. Restart warfarin and lovenox(bid) on 07/11. Warfarin is 6mg 07/11, 6mg 07/12, 3mg 07/13 and 6mg 07/14 and retest at [facility] 07/15. Lovenox 07/11, 07/12 [address] 07/13. Dr Felix's office called and msg left with Florence that lovenox will start on Sat 07/05 at 8pm. F/U INR: 07/15 Patient verbalizes understanding of instructions given Coding Level of Care Code Est Patient Level 2 Diagnoses Current use of anticoagulant therapy Z79.01 Assessment & Plan Assessment & Plan (1) Current use of anticoagulant therapy: Code(s): Z79.01 - intermediate (current) use of anticoagulants Category: Medical
== END 2023-07-05 10:19 | disposition home or self-care (01) ==
LOC: HO.ACS 08:55
PROVIDERS: PCP Internal Medicine; Visit Provider Internal Medicine
DX: Z79.01 Long term (current) use of anticoagulants (principal)

== ENCOUNTER → 2023-07-05 08:55 | Outpatient (BNVA) | payer OTHER, SELFPAY | PROVIDERS: PCP Internal Medicine; Visit Provider Internal Medicine | DX: I48.20 Chronic atrial fibrillation, unspecified (principal); Z79.01 Long term (current) use of anticoagulants; Z51.81 Encounter for therapeutic drug level monitoring | CPT/HCPCS: 85610; 99212 ==

== ENCOUNTER 2023-07-10 09:09 | Outpatient (REF) | payer OTHER, SELFPAY ==
[2023-07-10 10:27] LABS: MANUAL DIFF FLAG NO
[2023-07-10 10:34] LABS: Basophils Percent Auto 0.6 % (0-2); Eosinophils Absolute Auto 0.1 X10*3/uL (0.0-0.4); Eosinophils Percent Auto 1.2 % (0-4); Hematocrit 46.2 % (42.0-52.0); Hemoglobin 15.6 g/dl (14.0-18.0); Imm Gran Abs Auto 0.01 X10*3/uL (0.00-0.03); Imm Gran Pct Auto 0.2 % (0.0-0.4); Lymphocytes Absolute Auto 1.6 X10*3/uL (1.2-4.9); Lymphocytes Percent Auto 31.8 % (20-40); Mean Corpuscular HGB Conc 33.8 g/dl (31.0-36.0); Mean Corpuscular Hemoglobin 30.3 pg (27.0-33.0); Mean Corpuscular Volume 89.7 fL (80.0-98.0); Mean Platelet Volume 9.7 fL (9.4-12.4); Monocytes Absolute Auto 0.4 X10*3/uL (0.1-1.2); Neutrophils Absolute Auto 2.8 x10*3/uL (2.0-8.3); Neutrophils Percent Auto 58.2 % (45-73); Platelet Count 172 X10*3/uL (160-400); Red Blood Count 5.15 X10*6/uL (4.60-5.80); Red Cell Distribution Width 11.9 % (11.0-16.0); White Blood Count 4.9 X10*3/uL (4.8-10.8)
[2023-07-10 10:45] LABS: Alanine Aminotransferase 32 U/L (0-40); Albumin Level 4.1 g/dL (3.5-5.0); Alkaline Phosphatase 51 U/L (39-117); Anion Gap 12 (12-20); Aspartate Amino Transferase 41 U/L (5-37); Bilirubin Total 1.4 mg/dL (0.0-1.0); Blood Urea Nitrogen 14 mg/dL (9-16); Calcium 9.1 mg/dL (8.4-10.2); Carbon Dioxide 28 mmol/L (22-29); Chloride 104 mmol/L (96-108); Estimated Glomerular Filt Rate > 60; Glucose Random 147 mg/dL (60-115); Potassium 4.1 mmol/L (3.3-5.1); Sodium 140 mmol/L (135-145); Total Protein 8.1 g/dL (6.5-8.0)
[2023-07-10 10:55] LABS: Creatinine Urine 78.15 mg/dL; Microalbum/Creatinine Ratio Ur 518.2 ug/mg cr (<30)
[2023-07-10 15:23] LABS: Estimated Average Glucose 174 mg/dL; Hemoglobin A1c % 7.7 % (<6.0)
== END 2023-07-10 09:10 | disposition home or self-care (01) ==
LOC: HO.10HDL 09:09
PROVIDERS: Visit Provider Internal Medicine
DX: I48.91 Unspecified atrial fibrillation (principal); I10 Essential (primary) hypertension; E11.9 Type 2 diabetes mellitus without complications; R80.9 Proteinuria, unspecified
CPT/HCPCS: 36415; 80053; 82043; 82570; 83036; 85025

== ENCOUNTER 2023-07-16 09:06 | Outpatient (AMB) | payer OTHER, SELFPAY ==
--- NOTE | 2023-07-16 09:11 | MHC.OFFVISCO ---
Intake Intake Visit Reasons: Anticoagulation Allergies peanut [PEANUT] Adverse Reaction (Intermediate, Verified 07/05/23 08:55) ANGIOEDEMA SEASONAL ALLERGIES Allergy (Mild, Uncoded 07/05/23 08:55) STUFFY NOSE Medication List - Last Reconciled 07/16/23 by Neelam Villalobos, RN canagliflozin (Invokana) 300 mg PO DAILY carvedilol 3.125 mg PO BID finerenone (Kerendia) mg PO fluticasone propionate 50 mcg/actuation 1 spray intranasal DAILY losartan 50 mg PO DAILY metformin ER 500 mg PO DAILY sildenafil 100 mg PO ONCE PRN 30 days simvastatin mg PO tadalafil 10 mg PO DAILY 90 days valacyclovir 500 mg PO BID warfarin mg See Protocol PO Nursing Note INR 1.3-? out of therapeutic range of 2-3 Medications and supplements reviewed Patient status: pt s/p dental extraction x 1 on 07/11/23, held warfarin for 5 days with lovenox bridging pre and post. resumed warfarin on 07/12/23- took 6mg x 2 then resumed usual dosing. last dose of lovenox per bridging instructions was 07/14/23 Medications or supplements: no changes Diet: appetite good, able to eat Denies any signs and symptoms of bleeding or clotting or unusual bruising Bleeding, bruising, clotting discussed - states some bleeding for 2 days post proc, none further Nutritional guidance given: no greens for 3 days, eat reds to raise Dose: 6mg today and tomm then resume 6mg x 2, 3mg x 5 F/U INR Date : saturday07/19/23 Patient verbalizing understanding of instructions given. t/c placed to dr arcos's office to report low inr/dosing and f/u appt- spoke to tahira at 0930. ? lovenox at this time awaiting call back Coding Level of Care Code Est Patient Level 1 Diagnoses Current use of anticoagulant therapy Z79.01 Assessment & Plan Assessment & Plan (1) Current use of anticoagulant therapy: Code(s): Z79.01 - manager terminal (current) use of anticoagulants Category: Medical
[2023-07-16 09:12] LABS: Prothrombin Time Whole Bld POC 15.7 sec (11.1-13.5); ~PT, ~INR - Anti Coag Clinic 1.3 (0.9-1.1)
== END 2023-07-16 09:34 | disposition home or self-care (01) ==
LOC: HO.ACS 09:06
PROVIDERS: PCP Internal Medicine; Visit Provider Internal Medicine
DX: Z79.01 Long term (current) use of anticoagulants (principal)

== ENCOUNTER → 2023-07-16 09:06 | Outpatient (BNVA) | payer OTHER, SELFPAY | PROVIDERS: PCP Internal Medicine; Visit Provider Internal Medicine | DX: I48.20 Chronic atrial fibrillation, unspecified (principal); Z79.01 Long term (current) use of anticoagulants; Z51.81 Encounter for therapeutic drug level monitoring | CPT/HCPCS: 85610; 99211 ==

== ENCOUNTER 2023-07-19 08:58 | Outpatient (AMB) | payer OTHER, SELFPAY ==
[2023-07-19 09:05] LABS: Prothrombin Time Whole Bld POC 32.4 sec (11.1-13.5); ~PT, ~INR - Anti Coag Clinic 2.7 (0.9-1.1)
--- NOTE | 2023-07-19 09:20 | MHC.OFFVISCO ---
Intake Intake Visit Reasons: Anticoagulation Allergies peanut [PEANUT] Adverse Reaction (Intermediate, Verified 07/19/23 09:01) ANGIOEDEMA SEASONAL ALLERGIES Allergy (Mild, Uncoded 07/19/23 09:01) STUFFY NOSE Medication List - Last Reconciled 07/19/23 by eJssica Ken, RN canagliflozin (Invokana) 300 mg PO DAILY carvedilol 3.125 mg PO BID finerenone (Kerendia) mg PO fluticasone propionate 50 mcg/actuation 1 spray intranasal DAILY losartan 50 mg PO DAILY metformin ER 500 mg PO DAILY sildenafil 100 mg PO ONCE PRN 30 days simvastatin mg PO tadalafil 10 mg PO DAILY 90 days valacyclovir 500 mg PO BID warfarin mg See Protocol PO Nursing Note INR: 2.7 in therapeutic range of 2-3 Pt is S/P tooth extraction on 07/10 with lovenox bridge, LD of lovenox was this morning per pt. Medications and supplements reviewed: completed amoxicillan 2 days ago. No excessive bleeding from extraction. No changes in health, diet, medications, or supplements, Denies any signs and symptoms of bleeding or bruising or clotting. Bleeding, bruising, clotting discussed Nutritional guidance given to balance greens and reds Dose: Decrease today's dose to 3mg (due to major delayed effect to raise INR from amoxicillan) then cont usual dose of 3 mg X 5days and 6mg X2 days. F/U INR: 1 week Patient verbalizes understanding of instructions given Coding Level of Care Code Est Patient Level 1 Diagnoses Current use of anticoagulant therapy Z79.01 Assessment & Plan Assessment & Plan (1) Current use of anticoagulant therapy: Code(s): Z79.01 - [facility] (current) use of anticoagulants Category: Medical
== END 2023-07-19 09:28 | disposition home or self-care (01) ==
LOC: HO.ACS 08:58
PROVIDERS: PCP Internal Medicine; Visit Provider Internal Medicine
DX: Z79.01 Long term (current) use of anticoagulants (principal)

== ENCOUNTER → 2023-07-19 08:58 | Outpatient (BNVA) | payer OTHER, SELFPAY | PROVIDERS: PCP Internal Medicine; Visit Provider Internal Medicine | DX: I48.20 Chronic atrial fibrillation, unspecified (principal); Z79.01 Long term (current) use of anticoagulants; Z51.81 Encounter for therapeutic drug level monitoring | CPT/HCPCS: 85610; 99211 ==

== ENCOUNTER 2023-07-26 09:14 | Outpatient (AMB) | payer OTHER, SELFPAY ==
--- NOTE | 2023-07-26 09:27 | MHC.OFFVISCO ---
Intake Intake Visit Reasons: Anticoagulation Allergies peanut [PEANUT] Adverse Reaction (Intermediate, Verified 07/26/23 09:14) ANGIOEDEMA SEASONAL ALLERGIES Allergy (Mild, Uncoded 07/26/23 09:14) STUFFY NOSE Medication List - Last Reconciled 07/26/23 by Mireya Silver RN amoxicillin 500 mg PO TID canagliflozin (Invokana) 300 mg PO DAILY carvedilol 3.125 mg PO BID finerenone (Kerendia) mg PO fluticasone propionate 50 mcg/actuation 1 spray intranasal DAILY ibuprofen (IBU) 800 mg PO Q8H losartan 50 mg PO DAILY metformin ER 500 mg PO DAILY sildenafil 100 mg PO ONCE PRN 30 days simvastatin mg PO tadalafil 10 mg PO DAILY 90 days valacyclovir 500 mg PO BID warfarin mg See Protocol PO Nursing Note INR: 1.8 ALMOST in therapeutic range Medications and supplements reviewed- COMPETED ANTBX 9 DAYS AGO WHICH CAN HAVE A DELAYED ONSET IN RAISING THE INR No changes in health, diet, or supplements, Denies any signs and symptoms of bleeding or bruising or clotting. Bleeding, bruising, clotting discussed Nutritional guidance given AVOID GREENS X 2 DAYS, REVIEW FOOD LIST, EAT A MIX OF FRUTIS AND VEGETABLES, EAT FOOD TO HELP RAISE TODAY Dose: RESUMEUSUAL DOSE 6MG X 2 DAYS/ 3MG X 5 DAYS F/U INR: 2 WEEKS Patient verbalizes understanding of instructions given Coding Level of Care Code Est Patient Level 1 Diagnoses Current use of anticoagulant therapy Z79.01 Results AMB INR Fingerstick AMB INR Fingerstick 1.8 Last Edit by Mireya Silver RN on 07/26/23 09:24 INTERFACE ONGOING FAILURE MANUAL ENTRY ONGING TAKES LONGER FOR VISIT Assessment & Plan Assessment & Plan (1) Current use of anticoagulant therapy: Code(s): Z79.01 - senior care (current) use of anticoagulants Category: Medical
[2023-07-26 09:29] LABS: Prothrombin Time Whole Bld POC 21.5 sec (11.1-13.5); ~PT, ~INR - Anti Coag Clinic 1.8 (0.9-1.1)
== END 2023-07-26 09:30 | disposition home or self-care (01) ==
LOC: HO.ACS 09:14
PROVIDERS: PCP Internal Medicine; Visit Provider Internal Medicine
DX: Z79.01 Long term (current) use of anticoagulants (principal)

== ENCOUNTER → 2023-07-26 09:14 | Outpatient (BNVA) | payer OTHER, SELFPAY | PROVIDERS: PCP Internal Medicine; Visit Provider Internal Medicine | DX: I48.20 Chronic atrial fibrillation, unspecified (principal); Z79.01 Long term (current) use of anticoagulants; Z51.81 Encounter for therapeutic drug level monitoring | CPT/HCPCS: 85610; 99211 ==

== ENCOUNTER 2023-08-09 09:12 | Outpatient (AMB) | payer OTHER, MEDICAID, SELFPAY ==
[2023-08-09 09:18] LABS: ~PT, ~INR - Anti Coag Clinic 2.2 (0.9-1.1)
--- NOTE | 2023-08-09 09:18 | MHC.OFFVISCO ---
Intake Intake Visit Reasons: Anticoagulation Allergies peanut [PEANUT] Adverse Reaction (Intermediate, Verified 08/09/23 09:13) ANGIOEDEMA SEASONAL ALLERGIES Allergy (Mild, Uncoded 08/09/23 09:13) STUFFY NOSE Medication List - Last Reconciled 08/09/23 by Neelam Villalobos, RN canagliflozin (Invokana) 300 mg PO DAILY carvedilol 3.125 mg PO BID finerenone (Kerendia) mg PO fluticasone propionate 50 mcg/actuation 1 spray intranasal DAILY losartan 50 mg PO DAILY metformin ER 500 mg PO DAILY sildenafil 100 mg PO ONCE PRN 30 days simvastatin mg PO tadalafil 10 mg PO DAILY 90 days valacyclovir 500 mg PO BID warfarin mg See Protocol PO Nursing Note INR: 2.2 in therapeutic range of 2-3 Medications and supplements reviewed- no changes No changes in health, diet, medications, or supplements, Denies any signs and symptoms of bleeding or bruising or clotting. Bleeding, bruising, clotting discussed Nutritional guidance given Dose: 6mg x 2, 3mg x 5 F/U INR: pt req 4 weeks Patient verbalizes understanding of instructions given Coding Level of Care Code Est Patient Level 1 Diagnoses Current use of anticoagulant therapy Z79.01 Assessment & Plan Assessment & Plan (1) Current use of anticoagulant therapy: Code(s): Z79.01 - [facility] (current) use of anticoagulants Category: Medical
== END 2023-08-09 09:22 | disposition home or self-care (01) ==
LOC: HO.ACS 09:12
PROVIDERS: PCP Internal Medicine; Visit Provider Internal Medicine
DX: Z79.01 Long term (current) use of anticoagulants (principal)

== ENCOUNTER → 2023-08-09 09:12 | Outpatient (BNVA) | payer OTHER, SELFPAY | PROVIDERS: PCP Internal Medicine; Visit Provider Internal Medicine | DX: I48.20 Chronic atrial fibrillation, unspecified (principal); Z79.01 Long term (current) use of anticoagulants; Z51.81 Encounter for therapeutic drug level monitoring | CPT/HCPCS: 85610; 99211 ==

== ENCOUNTER 2023-09-06 08:56 | Outpatient (AMB) | payer OTHER, SELFPAY ==
[2023-09-06 09:02] LABS: Prothrombin Time Whole Bld POC 20.7 sec (11.1-13.5); ~PT, ~INR - Anti Coag Clinic 1.7 (0.9-1.1)
--- NOTE | 2023-09-06 09:08 | MHC.OFFVISCO ---
Intake Intake Visit Reasons: Anticoagulation Allergies peanut [PEANUT] Adverse Reaction (Intermediate, Verified 09/06/23 08:56) ANGIOEDEMA SEASONAL ALLERGIES Allergy (Mild, Uncoded 09/06/23 08:56) STUFFY NOSE Medication List - Last Reconciled 09/06/23 by Mireya Silver, RN canagliflozin (Invokana) 300 mg PO DAILY carvedilol 3.125 mg PO BID finerenone (Kerendia) mg PO fluticasone propionate 50 mcg/actuation 1 spray intranasal DAILY loratadine (Allergy Relief (loratadine)) 10 mg PO DAILY losartan 50 mg PO DAILY metformin ER 500 mg PO DAILY sildenafil 100 mg PO ONCE PRN 30 days simvastatin mg PO tadalafil 10 mg PO DAILY 90 days valacyclovir 500 mg PO BID warfarin mg See Protocol PO Nursing Note INR: 1.7 NOT therapeutic range Medications and supplements reviewed TAKING ALLERGY MED LORATADINE FOR SEASONAL ALLERGIES, MAY HAVE HAD MORE GREENS Denies any signs and symptoms of bleeding or bruising or clotting. Bleeding, bruising, clotting discussed Nutritional guidance given - EAT A FEW FOODS TO OFFSET THE GREENS TO HELP MAINTAIN INR Dose: 6MG X 3 DAYS THIS WEEK THEN RESUME 6MG X 2 DAYS/ 3MG X 5 DAYS F/U INR: 2 WEEKS IF STABLE THEN 3-4 WEEKS PENDING INR Patient verbalizes understanding of instructions given Coding Level of Care Code Est Patient Level 1 Diagnoses Current use of anticoagulant therapy Z79.01 Assessment & Plan Assessment & Plan (1) Current use of anticoagulant therapy: Code(s): Z79.01 - technician terminal and repeater (current) use of anticoagulants Category: Medical
== END 2023-09-06 09:11 | disposition home or self-care (01) ==
LOC: HO.ACS 08:56
PROVIDERS: PCP Internal Medicine; Visit Provider Internal Medicine
DX: Z79.01 Long term (current) use of anticoagulants (principal)

== ENCOUNTER → 2023-09-06 08:56 | Outpatient (BNVA) | payer OTHER, SELFPAY | PROVIDERS: PCP Internal Medicine; Visit Provider Internal Medicine | DX: I48.20 Chronic atrial fibrillation, unspecified (principal); Z51.81 Encounter for therapeutic drug level monitoring; Z79.01 Long term (current) use of anticoagulants | CPT/HCPCS: 85610; 99211 ==

== ENCOUNTER 2023-09-20 09:05 | Outpatient (AMB) | payer OTHER, SELFPAY ==
--- NOTE | 2023-09-20 09:10 | MHC.OFFVISCO ---
Intake Intake Visit Reasons: Anticoagulation Allergies peanut [PEANUT] Adverse Reaction (Intermediate, Verified 09/20/23 09:06) ANGIOEDEMA SEASONAL ALLERGIES Allergy (Mild, Uncoded 09/20/23 09:06) STUFFY NOSE Medication List - Last Reconciled 09/20/23 by Neelam Villalobos, RN canagliflozin (Invokana) 300 mg PO DAILY carvedilol 3.125 mg PO BID finerenone (Kerendia) mg PO fluticasone propionate 50 mcg/actuation 1 spray intranasal DAILY loratadine (Allergy Relief (loratadine)) 10 mg PO DAILY losartan 50 mg PO DAILY metformin ER 500 mg PO DAILY sildenafil 100 mg PO ONCE PRN 30 days simvastatin mg PO tadalafil 10 mg PO DAILY 90 days valacyclovir 500 mg PO BID warfarin mg See Protocol PO Nursing Note INR: 2.1- in therapeutic range of 2-3 Medications and supplements reviewed No changes in health, diet, medications, or supplements, Denies any signs and symptoms of bleeding or bruising or clotting. Bleeding, bruising, clotting discussed Nutritional guidance given Dose: 6mg x 2, 3mg x 5 F/U INR: pt ref earlier appt than 10/25/23 due to travel Patient verbalizes understanding of instructions given Coding Level of Care Code Est Patient Level 1 Diagnoses Current use of anticoagulant therapy Z79.01 Assessment & Plan Assessment & Plan (1) Current use of anticoagulant therapy: Code(s): Z79.01 - snf (current) use of anticoagulants Category: Medical
[2023-09-20 09:11] LABS: Prothrombin Time Whole Bld POC 24.8 sec (11.1-13.5); ~PT, ~INR - Anti Coag Clinic 2.1 (0.9-1.1)
== END 2023-09-20 09:17 | disposition home or self-care (01) ==
LOC: HO.ACS 09:05
PROVIDERS: PCP Internal Medicine; Visit Provider Internal Medicine
DX: Z79.01 Long term (current) use of anticoagulants (principal)

== ENCOUNTER → 2023-09-20 09:05 | Outpatient (BNVA) | payer OTHER, SELFPAY | PROVIDERS: PCP Internal Medicine; Visit Provider Internal Medicine | DX: I48.20 Chronic atrial fibrillation, unspecified (principal); Z79.01 Long term (current) use of anticoagulants; Z51.81 Encounter for therapeutic drug level monitoring | CPT/HCPCS: 85610; 99211 ==

== ENCOUNTER 2023-10-29 08:50 | Outpatient (REF) | payer OTHER, SELFPAY ==
[2023-10-29 10:35] LABS: Appearance Urine Clear; Color Urine Yellow; Glucose Urine UA >=1000 mg/dL (Negative); Leukocyte Esterase Urine Negative (Negative); Nitrite Urine Negative (Negative); PH 5.5 (5.0-9.0); Specific Gravity - Urine >= 1.030 (1.005-1.025); UMIC TRIGGER UA YES; Urine Blood Negative (Negative); Urine Ketones Negative (Negative); Urine Protein 30 (1+) mg/dL (Neg-Trace)
[2023-10-29 10:40] LABS: Bacteria Urine None Seen (None Seen); Hyaline Casts Urine 0-2 /LPF (0-2); RBC Urine 0-2 /HPF (0-2); Squamous Epithelial Cell Urine 0-2 /HPF (0-2); WBC Urine 0-5 /HPF (0-5)
[2023-10-29 11:38] LABS: Anion Gap 13 (12-20); Blood Urea Nitrogen 20 mg/dL (9-16); Calcium 9.2 mg/dL (8.4-10.2); Carbon Dioxide 24 mmol/L (22-29); Chloride 107 mmol/L (96-108); Estimated Glomerular Filt Rate > 60; Potassium 4.3 mmol/L (3.3-5.1); Sodium 140 mmol/L (135-145)
[2023-10-29 11:43] LABS: Creatinine Urine 79.14 mg/dL; Microalbum/Creatinine Ratio Ur 452.3 ug/mg cr (<30); Protein/Creatinine Ratio, Ur 0.68 (<0.2); Total Protein Urine Random 54 mg/dL (<12)
== END 2023-10-29 08:51 | disposition home or self-care (01) ==
LOC: HO.10HDL 08:50
PROVIDERS: Visit Provider Internal Medicine Nephrology
DX: E11.21 Type 2 diabetes mellitus with diabetic nephropathy (principal); R80.1 Persistent proteinuria, unspecified; N18.2 Chronic kidney disease, stage 2 (mild)
CPT/HCPCS: 36415; 80051; 81001; 82043; 82310; 82565; 82570; 84156; 84520

== ENCOUNTER 2023-10-30 10:22 | Outpatient (AMB) | payer OTHER, SELFPAY ==
[2023-10-30 10:30] LABS: Prothrombin Time Whole Bld POC 26.4 sec (11.1-13.5); ~PT, ~INR - Anti Coag Clinic 2.2 (0.9-1.1)
--- NOTE | 2023-10-30 10:34 | MHC.OFFVISCO ---
Intake Intake Visit Reasons: Anticoagulation Allergies peanut [PEANUT] Adverse Reaction (Intermediate, Verified 10/30/23 10:25) ANGIOEDEMA SEASONAL ALLERGIES Allergy (Mild, Uncoded 10/30/23 10:25) STUFFY NOSE Medication List - Last Reconciled 10/30/23 by Mireya Silver, RN canagliflozin (Invokana) 300 mg PO DAILY carvedilol 3.125 mg PO BID finerenone (Kerendia) mg PO fluticasone propionate 50 mcg/actuation 1 spray intranasal DAILY loratadine (Allergy Relief (loratadine)) 10 mg PO DAILY losartan 50 mg PO DAILY metformin ER 500 mg PO DAILY sildenafil 100 mg PO ONCE PRN 30 days simvastatin mg PO tadalafil 10 mg PO DAILY 90 days valacyclovir 500 mg PO BID warfarin mg See Protocol PO Nursing Note INR: 2.2 in therapeutic range Medications and supplements reviewed No changes in health, diet, medications, or supplements, Denies any signs and symptoms of bleeding or bruising or clotting. 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
== END 2023-10-30 10:39 | disposition home or self-care (01) ==
LOC: HO.ACS 10:22
PROVIDERS: PCP Internal Medicine; Visit Provider Internal Medicine
DX: Z79.01 Long term (current) use of anticoagulants (principal)

== ENCOUNTER → 2023-10-30 10:22 | Outpatient (BNVA) | payer OTHER, SELFPAY | PROVIDERS: PCP Internal Medicine; Visit Provider Internal Medicine | DX: I48.20 Chronic atrial fibrillation, unspecified (principal); Z51.81 Encounter for therapeutic drug level monitoring; Z79.01 Long term (current) use of anticoagulants | CPT/HCPCS: 85610; 99211 ==

== ENCOUNTER 2023-11-29 08:57 | Outpatient (AMB) | payer OTHER, SELFPAY ==
[2023-11-29 09:06] LABS: ~PT, ~INR - Anti Coag Clinic 2.4 (0.9-1.1)
--- NOTE | 2023-11-29 09:10 | MHC.OFFVISCO ---
Intake Intake Visit Reasons: Anticoagulation Allergies peanut [PEANUT] Adverse Reaction (Intermediate, Verified 11/29/23 09:02) ANGIOEDEMA SEASONAL ALLERGIES Allergy (Mild, Uncoded 11/29/23 09:02) STUFFY NOSE Medication List - Last Reconciled 11/29/23 by Mireya Silver, RN canagliflozin (Invokana) 300 mg PO DAILY carvedilol 3.125 mg PO BID finerenone (Kerendia) mg PO fluticasone propionate 50 mcg/actuation 1 spray intranasal DAILY loratadine (Allergy Relief (loratadine)) 10 mg PO DAILY losartan 50 mg PO DAILY metformin ER 500 mg PO DAILY sildenafil 100 mg PO ONCE PRN 30 days simvastatin mg PO tadalafil 10 mg PO DAILY 90 days valacyclovir 500 mg PO BID warfarin mg See Protocol PO Nursing Note INR: 2.4 in therapeutic range Medications and supplements reviewed No changes in health, diet, medications, or supplements, Denies any signs and symptoms of bleeding or bruising or clotting. Bleeding, bruising, clotting discussed Nutritional guidance given Dose: 6MG X 2 DAYS/ 3MG X 5 DAYS F/U INR: 1 MONTH Patient verbalizes understanding of instructions given Coding Level of Care Code Est Patient Level 1 Diagnoses Current use of anticoagulant therapy Z79.01 Assessment & Plan Assessment & Plan (1) Current use of anticoagulant therapy: Code(s): Z79.01 - [facility] (current) use of anticoagulants Category: Medical
== END 2023-11-29 09:12 | disposition home or self-care (01) ==
LOC: HO.ACS 08:57
PROVIDERS: PCP Internal Medicine; Visit Provider Internal Medicine
DX: Z79.01 Long term (current) use of anticoagulants (principal)

== ENCOUNTER → 2023-11-29 08:57 | Outpatient (BNVA) | payer OTHER, SELFPAY | PROVIDERS: PCP Internal Medicine; Visit Provider Internal Medicine | DX: I48.20 Chronic atrial fibrillation, unspecified (principal); Z79.01 Long term (current) use of anticoagulants; Z51.81 Encounter for therapeutic drug level monitoring | CPT/HCPCS: 85610; 99211 ==

== ENCOUNTER 2023-12-11 10:01 | Outpatient (REF) | payer OTHER, SELFPAY ==
[2023-12-11 11:27] LABS: Anion Gap 16 (12-20); Blood Urea Nitrogen 14 mg/dL (9-16); Calcium 9.3 mg/dL (8.4-10.2); Carbon Dioxide 23 mmol/L (22-29); Chloride 102 mmol/L (96-108); Estimated Glomerular Filt Rate > 60; Potassium 4.3 mmol/L (3.3-5.1); Sodium 137 mmol/L (135-145)
== END 2023-12-11 10:02 | disposition home or self-care (01) ==
LOC: HO.10HDL 10:01
PROVIDERS: Visit Provider Internal Medicine Nephrology
DX: E11.22 Type 2 diabetes mellitus with diabetic chronic kidney disease (principal); N18.9 Chronic kidney disease, unspecified; R80.1 Persistent proteinuria, unspecified
CPT/HCPCS: 36415; 80051; 82310; 82565; 84520

== ENCOUNTER 2024-01-03 08:53 | Outpatient (AMB) | payer OTHER, SELFPAY ==
[2024-01-03 09:03] LABS: Prothrombin Time Whole Bld POC 27.5 sec (11.1-13.5); ~PT, ~INR - Anti Coag Clinic 2.3 (0.9-1.1)
--- NOTE | 2024-01-03 09:07 | MHC.OFFVISCO ---
Intake Intake Visit Reasons: Anticoagulation Allergies peanut [PEANUT] Adverse Reaction (Intermediate, Verified 01/03/24 08:59) ANGIOEDEMA SEASONAL ALLERGIES Allergy (Mild, Uncoded 01/03/24 08:59) STUFFY NOSE Medication List - Last Reconciled 01/03/24 by Mireya Silver, RN canagliflozin (Invokana) 300 mg PO DAILY carvedilol 3.125 mg PO BID finerenone (Kerendia) mg PO fluticasone propionate 50 mcg/actuation 1 spray intranasal DAILY loratadine (Allergy Relief (loratadine)) 10 mg PO DAILY losartan 50 mg PO DAILY metformin ER 500 mg PO DAILY sildenafil 100 mg PO ONCE PRN 30 days simvastatin mg PO tadalafil 10 mg PO DAILY 90 days valacyclovir 500 mg PO BID warfarin mg See Protocol PO Nursing Note INR: 2.3 in therapeutic range Medications and supplements reviewed No changes in health, diet, medications, or supplements, Denies any signs and symptoms of bleeding or bruising or clotting. Bleeding, bruising, clotting discussed Nutritional guidance given Dose: 6MG X 2 DAYS/ 3MG X 5 DAYS F/U INR: 1 MONTH Patient verbalizes understanding of instructions given Coding Level of Care Code Est Patient Level 1 Diagnoses Current use of anticoagulant therapy Z79.01 Assessment & Plan Assessment & Plan (1) Current use of anticoagulant therapy: Code(s): Z79.01 - care home (current) use of anticoagulants Category: Medical
== END 2024-01-03 09:09 | disposition home or self-care (01) ==
LOC: HO.ACS 08:53
PROVIDERS: PCP Internal Medicine; Visit Provider Internal Medicine
DX: Z79.01 Long term (current) use of anticoagulants (principal)

== ENCOUNTER → 2024-01-03 08:53 | Outpatient (BNVA) | payer MEDICARE, OTHER, SELFPAY | PROVIDERS: PCP Internal Medicine; Visit Provider Internal Medicine | DX: I48.20 Chronic atrial fibrillation, unspecified (principal); Z79.01 Long term (current) use of anticoagulants; Z51.81 Encounter for therapeutic drug level monitoring | CPT/HCPCS: 85610; 99211 ==

== ENCOUNTER 2024-01-31 08:58 | Outpatient (AMB) | payer MEDICARE, OTHER, SELFPAY ==
[2024-01-31 09:15] LABS: Prothrombin Time Whole Bld POC 20.6 sec (11.1-13.5); ~PT, ~INR - Anti Coag Clinic 1.7 (0.9-1.1)
--- NOTE | 2024-01-31 09:19 | MHC.OFFVISCO ---
Intake Intake Visit Reasons: Anticoagulation Allergies peanut [PEANUT] Adverse Reaction (Intermediate, Verified 01/31/24 09:10) ANGIOEDEMA SEASONAL ALLERGIES Allergy (Mild, Uncoded 01/31/24 09:10) STUFFY NOSE Medication List - Last Reconciled 01/31/24 by Mireya Silver RN canagliflozin (Invokana) 300 mg PO DAILY carvedilol 3.125 mg PO BID finerenone (Kerendia) mg PO fluticasone propionate 50 mcg/actuation 1 spray intranasal DAILY loratadine (Allergy Relief (loratadine)) 10 mg PO DAILY losartan 50 mg PO DAILY metformin ER 500 mg PO DAILY sildenafil 100 mg PO ONCE PRN 30 days simvastatin mg PO tadalafil 10 mg PO DAILY 90 days valacyclovir 500 mg PO BID warfarin mg See Protocol PO Nursing Note INR 1.7 out of therapeutic range Medications and supplements reviewed Patient status: S/P COVID AND FLU VACCINE YESTERDAY-SLIGHT DISCOMFORT AT INJEECTION SITE- SOME INRs drop after covid vaccine Medications or supplements: no change Diet: good - may have had more greens Denies any signs and symptoms of bleeding or clotting or unusual bruising Bleeding, bruising, clotting discussed Nutritional guidance given: avoid greens x 3 days - eat orange and reds today Dose: 6mg x 3 days this week then resume 6mg x 2 days/ 3mg x 5 days F/U INR Date : 1 week?? Patient verbalizing understanding of instructions given. Coding Level of Care Code Est Patient Level 1 Diagnoses Current use of anticoagulant therapy Z79.01 Results AMB INR Fingerstick AMB INR Fingerstick 1.7 Last Edit by Mireya Silver RN on 01/31/24 09:17 MANUAL ENTRY Assessment & Plan Assessment & Plan (1) Current use of anticoagulant therapy: Code(s): Z79.01 - technician terminal and repeater (current) use of anticoagulants Category: Medical
== END 2024-01-31 09:23 | disposition home or self-care (01) ==
LOC: HO.ACS 08:58
PROVIDERS: PCP Internal Medicine; Visit Provider Internal Medicine
DX: Z79.01 Long term (current) use of anticoagulants (principal)

== ENCOUNTER → 2024-01-31 08:58 | Outpatient (BNVA) | payer MEDICARE, OTHER, SELFPAY | PROVIDERS: PCP Internal Medicine; Visit Provider Internal Medicine | DX: I48.20 Chronic atrial fibrillation, unspecified (principal); Z79.01 Long term (current) use of anticoagulants; Z51.81 Encounter for therapeutic drug level monitoring | CPT/HCPCS: 85610; 99211 ==

== ENCOUNTER 2024-02-14 09:02 | Outpatient (AMB) | payer MEDICARE, OTHER, SELFPAY ==
[2024-02-14 09:07] LABS: Prothrombin Time Whole Bld POC 20.6 sec (11.1-13.5); ~PT, ~INR - Anti Coag Clinic 1.7 (0.9-1.1)
--- NOTE | 2024-02-14 09:10 | MHC.OFFVISCO ---
Intake Intake Visit Reasons: Anticoagulation Allergies peanut [PEANUT] Adverse Reaction (Intermediate, Verified 02/14/24 09:03) ANGIOEDEMA SEASONAL ALLERGIES Allergy (Mild, Uncoded 02/14/24 09:03) STUFFY NOSE Medication List - Last Reconciled 02/14/24 by Jessica Ken RN canagliflozin (Invokana) 300 mg PO DAILY carvedilol 3.125 mg PO BID finerenone (Kerendia) mg PO fluticasone propionate 50 mcg/actuation 1 spray intranasal DAILY loratadine (Allergy Relief (loratadine)) 10 mg PO DAILY losartan 50 mg PO DAILY metformin ER 500 mg PO DAILY sildenafil 100 mg PO ONCE PRN 30 days simvastatin mg PO tadalafil 10 mg PO DAILY 90 days valacyclovir 500 mg PO BID warfarin mg See Protocol PO Nursing Note INR 1.7?out of therapeutic range of 2-3 Medications and supplements reviewed Patient status: well Medications or supplements: no changes Diet: usual diet for pt Denies any signs and symptoms of bleeding or clotting or unusual bruising Bleeding, bruising, clotting discussed Nutritional guidance given: avoid greens for 2 days and to have a serving of foods from the list that raises the INR Dose: usual dose of 6mg today then increase tomorrow's dose to 6mg(3mg) then resume usual dose of 3mg X 5 days and 6mg X 2 days (Mon, Fri) F/U INR Date : 2 weeks Patient verbalizing understanding of instructions given. Coding Level of Care Code Est Patient Level 1 Diagnoses Current use of anticoagulant therapy Z79.01 Results AMB INR Fingerstick AMB INR Fingerstick 1.7 Last Edit by Jessica Ken RN on 02/14/24 09:07 interface delay Assessment & Plan Assessment & Plan (1) Current use of anticoagulant therapy: Code(s): Z79.01 - custodial (current) use of anticoagulants Category: Medical
== END 2024-02-14 09:14 | disposition home or self-care (01) ==
LOC: HO.ACS 09:02
PROVIDERS: PCP Internal Medicine; Visit Provider Internal Medicine
DX: Z79.01 Long term (current) use of anticoagulants (principal)

== ENCOUNTER → 2024-02-14 09:02 | Outpatient (BNVA) | payer MEDICARE, OTHER, SELFPAY | PROVIDERS: PCP Internal Medicine; Visit Provider Internal Medicine | DX: I48.20 Chronic atrial fibrillation, unspecified (principal); Z79.01 Long term (current) use of anticoagulants; Z51.81 Encounter for therapeutic drug level monitoring | CPT/HCPCS: 85610; 99211 ==

== ENCOUNTER 2024-02-28 09:18 | Outpatient (AMB) | payer MEDICARE, OTHER, SELFPAY ==
[2024-02-28 09:29] LABS: Prothrombin Time Whole Bld POC 23.1 sec (11.1-13.5); ~PT, ~INR - Anti Coag Clinic 1.9 (0.9-1.1)
--- NOTE | 2024-02-28 09:33 | MHC.OFFVISCO ---
Intake Intake Visit Reasons: Anticoagulation Allergies peanut [PEANUT] Adverse Reaction (Intermediate, Verified 02/28/24 09:22) ANGIOEDEMA SEASONAL ALLERGIES Allergy (Mild, Uncoded 02/28/24 09:22) STUFFY NOSE Medication List - Last Reconciled 02/28/24 by Mireya Silver RN canagliflozin (Invokana) 300 mg PO DAILY carvedilol 3.125 mg PO BID finerenone (Kerendia) mg PO fluticasone propionate 50 mcg/actuation 1 spray intranasal DAILY loratadine (Allergy Relief (loratadine)) 10 mg PO DAILY losartan 50 mg PO DAILY metformin ER 500 mg PO DAILY sildenafil 100 mg PO ONCE PRN 30 days simvastatin mg PO tadalafil 10 mg PO DAILY 90 days valacyclovir 500 mg PO BID warfarin mg See Protocol PO Nursing Note INR: 1.9 ALMOST therapeutic range INR BLEOW RANGE SINCE COVID/FLU VACCINE X 1 MONTH INCREASE WEEKLY DOSE X 2 WEEKS - *AFTER COVID VACCINE SOME PT INR HAVE TAKEN UP TO 12 WEEKS TO STABLIZE Medications and supplements reviewed No changes in health, diet, medications, or supplements, Denies any signs and symptoms of bleeding or bruising or clotting. Bleeding, bruising, clotting discussed Nutritional guidance given Dose: INCREASE TO 6MG X 3 DAYS/ 3MG X 4 DAYS F/U INR: 2 WEEKS Patient verbalizes understanding of instructions given Questionnaires HAS-BLED Does the patient had uncontrolled Hypertension?: No Does the patient have renal disease?: No Does the patient have liver disease?: No Does the patient have a history of stroke?: No Has the patient had major bleeding or predisposition to bleeding?: No Does the patient have labile INRs?: Yes Is the patient over 65 years of age?: Yes Is the patient on medications that gives them a predisposition to bleeding?: Yes Does the patient use alcohol?: No HAS-BLED Score: 3 CHADSVASC Age: 66-74 Gender: Male Does the patient have a history of CHF?: No Does the patient have a history of Hypertension?: Yes Does the patient have a history of Stroke/TIA/Thromboembolism?: No Does the patient have a history of Vascular Disease (prior MO, PAD or aortic plaque)?: No Does the patient have a history of Diabetes?: Yes CHADS VACS Score: 3 Dav Prediction Score Rsk VTE Active Cancer: No Previous VTE, excluding superficial vein thrombosis: No Reduced mobility: No Already known Thrombophilic Condition: No With-in last month Trauma and/or Surgery: No Elderly 70 year or older: No Heart and/or Respiratory Failure: No Acute Myocardial infarction and/or Ischemic Stroke: No Acute Infection and/or Rheumatologic Disorder: Yes (RHEUMATIC MITRAL STENOSIS) Obesity (BMI 30 or greater): No Ongoing Hormonal Treatment: No Score: 1 Dav Score less than 4; Low Risk of VTE Dav Score 4 or greater; High Risk of VTE Coding Level of Care Code Est Patient Level 1 Diagnoses Current use of anticoagulant therapy Z79.01 Results AMB INR Fingerstick AMB INR Fingerstick 1.9 Last Edit by Mireya Silver RN on 02/28/24 09:32 MANUAL ENTRY Assessment & Plan Assessment & Plan (1) Current use of anticoagulant therapy: Code(s): Z79.01 - [facility] (current) use of anticoagulants Category: Medical
== END 2024-02-28 09:45 | disposition home or self-care (01) ==
LOC: HO.ACS 09:18
PROVIDERS: PCP Internal Medicine; Visit Provider Internal Medicine
DX: Z79.01 Long term (current) use of anticoagulants (principal)

== ENCOUNTER → 2024-02-28 09:18 | Outpatient (BNVA) | payer MEDICARE, OTHER, SELFPAY | PROVIDERS: PCP Internal Medicine; Visit Provider Internal Medicine | DX: I48.20 Chronic atrial fibrillation, unspecified (principal); Z79.01 Long term (current) use of anticoagulants; Z51.81 Encounter for therapeutic drug level monitoring | CPT/HCPCS: 85610; 99211 ==

== ENCOUNTER 2024-03-13 08:52 | Outpatient (AMB) | payer MEDICARE, OTHER, SELFPAY ==
--- NOTE | 2024-03-13 09:10 | MHC.OFFVISCO ---
Intake Intake Visit Reasons: Anticoagulation Allergies peanut [PEANUT] Adverse Reaction (Intermediate, Verified 03/13/24 08:59) ANGIOEDEMA SEASONAL ALLERGIES Allergy (Mild, Uncoded 03/13/24 08:59) STUFFY NOSE Medication List - Last Reconciled 03/13/24 by Jessica Ken RN canagliflozin (Invokana) 300 mg PO DAILY carvedilol 3.125 mg PO BID finerenone (Kerendia) mg PO fluticasone propionate 50 mcg/actuation 1 spray intranasal DAILY loratadine (Allergy Relief (loratadine)) 10 mg PO DAILY losartan 50 mg PO DAILY metformin ER 500 mg PO DAILY sildenafil 100 mg PO ONCE PRN 30 days simvastatin mg PO tadalafil 10 mg PO DAILY 90 days valacyclovir 500 mg PO BID warfarin mg See Protocol PO Nursing Note INR: 2.2 in therapeutic range of 2-3 Medications and supplements reviewed No changes in health, diet, medications, or supplements, Denies any signs and symptoms of bleeding or bruising or clotting. 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
[2024-03-13 09:12] LABS: Prothrombin Time Whole Bld POC 26.6 sec (11.1-13.5); ~PT, ~INR - Anti Coag Clinic 2.2 (0.9-1.1)
== END 2024-03-13 09:14 | disposition home or self-care (01) ==
LOC: HO.ACS 08:52
PROVIDERS: PCP Internal Medicine; Visit Provider Internal Medicine
DX: Z79.01 Long term (current) use of anticoagulants (principal)

== ENCOUNTER → 2024-03-13 08:52 | Outpatient (BNVA) | payer MEDICARE, OTHER, SELFPAY | PROVIDERS: PCP Internal Medicine; Visit Provider Internal Medicine | DX: I48.20 Chronic atrial fibrillation, unspecified (principal); Z79.01 Long term (current) use of anticoagulants; Z51.81 Encounter for therapeutic drug level monitoring | CPT/HCPCS: 85610; 99211 ==

== ENCOUNTER 2024-04-10 08:51 | Outpatient (AMB) | payer MEDICARE, OTHER, SELFPAY ==
[2024-04-10 08:58] LABS: Prothrombin Time Whole Bld POC 29.6 sec (11.1-13.5); ~PT, ~INR - Anti Coag Clinic 2.5 (0.9-1.1)
--- NOTE | 2024-04-10 09:00 | MHC.OFFVISCO ---
Intake Intake Visit Reasons: Anticoagulation Allergies peanut [PEANUT] Adverse Reaction (Intermediate, Verified 04/10/24 08:51) ANGIOEDEMA SEASONAL ALLERGIES Allergy (Mild, Uncoded 04/10/24 08:51) STUFFY NOSE Medication List - Last Reconciled 04/10/24 by Jessica Ken RN canagliflozin (Invokana) 300 mg PO DAILY carvedilol 3.125 mg PO BID finerenone (Kerendia) mg PO fluticasone propionate 50 mcg/actuation 1 spray intranasal DAILY loratadine (Allergy Relief (loratadine)) 10 mg PO DAILY losartan 50 mg PO DAILY metformin ER 500 mg PO DAILY sildenafil 100 mg PO ONCE PRN 30 days simvastatin mg PO tadalafil 10 mg PO DAILY 90 days valacyclovir 500 mg PO BID warfarin mg See Protocol PO Nursing Note INR: 2.5 in therapeutic range of 2-3 Medications and supplements reviewed No changes in health, diet, medications, or supplements, Denies any signs and symptoms of bleeding or bruising or clotting. 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
== END 2024-04-10 09:01 | disposition home or self-care (01) ==
LOC: HO.ACS 08:51
PROVIDERS: PCP Internal Medicine; Visit Provider Internal Medicine
DX: Z79.01 Long term (current) use of anticoagulants (principal)

== ENCOUNTER → 2024-04-10 08:51 | Outpatient (BNVA) | payer MEDICARE, OTHER, SELFPAY | PROVIDERS: PCP Internal Medicine; Visit Provider Internal Medicine | DX: I48.20 Chronic atrial fibrillation, unspecified (principal); Z79.01 Long term (current) use of anticoagulants; Z51.81 Encounter for therapeutic drug level monitoring | CPT/HCPCS: 85610; 99211 ==

== ENCOUNTER 2024-05-08 08:51 | Outpatient (AMB) | payer MEDICARE, OTHER, SELFPAY ==
[2024-05-08 08:58] LABS: Prothrombin Time Whole Bld POC 28.5 sec (11.1-13.5); ~PT, ~INR - Anti Coag Clinic 2.4 (0.9-1.1)
--- NOTE | 2024-05-08 09:00 | MHC.OFFVISCO ---
Intake Intake Visit Reasons: Anticoagulation Allergies peanut [PEANUT] Adverse Reaction (Intermediate, Verified 05/08/24 08:53) ANGIOEDEMA SEASONAL ALLERGIES Allergy (Mild, Uncoded 05/08/24 08:53) STUFFY NOSE Medication List - Last Reconciled 05/08/24 by Jessica Ken, RN canagliflozin (Invokana) 300 mg PO DAILY carvedilol 3.125 mg PO BID finerenone (Kerendia) mg PO fluticasone propionate 50 mcg/actuation 1 spray intranasal DAILY loratadine (Allergy Relief (loratadine)) 10 mg PO DAILY losartan 50 mg PO DAILY metformin ER 500 mg PO DAILY sildenafil 100 mg PO ONCE PRN 30 days simvastatin mg PO tadalafil 10 mg PO DAILY 90 days valacyclovir 500 mg PO BID warfarin mg See Protocol PO Nursing Note INR: 2.4 in therapeutic range of 2-3 Medications and supplements reviewed No changes in health, diet, medications, or supplements, Denies any signs and symptoms of bleeding or bruising or clotting. 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
== END 2024-05-08 09:01 | disposition home or self-care (01) ==
LOC: HO.ACS 08:51
PROVIDERS: PCP Internal Medicine; Visit Provider Internal Medicine
DX: Z79.01 Long term (current) use of anticoagulants (principal)

== ENCOUNTER 2024-05-08 09:02 | Outpatient (REF) | payer MEDICARE, OTHER, SELFPAY ==
[2024-05-08 10:57] LABS: MANUAL DIFF FLAG NO
[2024-05-08 11:11] LABS: Appearance Urine Clear; Basophils Percent Auto 0.8 % (0-2); Color Urine Yellow; Eosinophils Absolute Auto 0.1 X10*3/uL (0.0-0.4); Eosinophils Percent Auto 1.3 % (0-4); Glucose Urine UA >=1000 mg/dL (Negative); Hematocrit 47.4 % (42.0-52.0); Hemoglobin 16.1 g/dl (14.0-18.0); Imm Gran Abs Auto 0.01 X10*3/uL (0.00-0.03); Imm Gran Pct Auto 0.2 % (0.0-0.4); Leukocyte Esterase Urine Negative (Negative); Lymphocytes Absolute Auto 1.2 X10*3/uL (1.2-4.9); Lymphocytes Percent Auto 23.3 % (20-40); Mean Corpuscular Hemoglobin 30.5 pg (27.0-33.0); Mean Corpuscular Volume 89.8 fL (80.0-98.0); Mean Platelet Volume 10.1 fL (9.4-12.4); Monocytes Absolute Auto 0.4 X10*3/uL (0.1-1.2); Monocytes Percent Auto 7.5 % (2-11); Neutrophils Absolute Auto 3.5 x10*3/uL (2.0-8.3); Neutrophils Percent Auto 66.9 % (45-73); Nitrite Urine Negative (Negative); PH 5.5 (5.0-9.0); Platelet Count 193 X10*3/uL (160-400); Red Blood Count 5.28 X10*6/uL (4.60-5.80); Red Cell Distribution Width 11.5 % (11.0-16.0); Specific Gravity - Urine >= 1.030 (1.005-1.025); UMIC TRIGGER UA YES; Urine Blood Negative (Negative); Urine Ketones Negative (Negative); Urine Protein 100 (2+) mg/dL (Neg-Trace); White Blood Count 5.2 X10*3/uL (4.8-10.8)
[2024-05-08 11:15] LABS: Bacteria Urine None Seen (None Seen); Hyaline Casts Urine 0-2 /LPF (0-2); RBC Urine 0-2 /HPF (0-2); Squamous Epithelial Cell Urine 0-2 /HPF (0-2); WBC Urine 0-5 /HPF (0-5)
[2024-05-08 11:36] LABS: Prostate Specific Antigen Scr 2.03 ng/mL (<0.05-4.0)
[2024-05-08 11:39] LABS: Creatinine Urine 62.51 mg/dL; Estimated Average Glucose 192 mg/dL; Hemoglobin A1C 285.4087 umol/L; Hemoglobin A1c % 8.3 % (<6.0); Total Hemoglobin (HGBA1C) 4236.5099 umol/L
[2024-05-08 12:02] LABS: Alanine Aminotransferase 24 U/L (0-40); Albumin Level 4.2 g/dL (3.5-5.0); Alkaline Phosphatase 49 U/L (39-117); Anion Gap 13 (12-20); Aspartate Amino Transferase 28 U/L (5-37); Bilirubin Total 1.5 mg/dL (0.0-1.0); Blood Urea Nitrogen 19 mg/dL (9-16); Calcium 9.2 mg/dL (8.4-10.2); Carbon Dioxide 29 mmol/L (22-29); Chloride 106 mmol/L (96-108); Cholesterol 168 mg/dL (<200); Estimated Glomerular Filt Rate > 60; Glucose Fasting 190 mg/dL (60-99); HDL Cholesterol 47 mg/dL (>40); LDL Cholesterol Calculated 99 mg/dL (<100); Potassium 4.5 mmol/L (3.3-5.1); Sodium 143 mmol/L (135-145); Triglycerides 111 mg/dL (<150); Vitamin D 25-OH Total 34.8 ng/mL (>30)
== END 2024-05-08 09:03 | disposition home or self-care (01) ==
LOC: HO.10HDL 09:02
PROVIDERS: Visit Provider Internal Medicine
DX: Z79.01 Long term (current) use of anticoagulants (principal); I48.91 Unspecified atrial fibrillation; E11.9 Type 2 diabetes mellitus without complications; I10 Essential (primary) hypertension; E78.00 Pure hypercholesterolemia, unspecified; E55.9 Vitamin D deficiency, unspecified; Z12.5 Encounter for screening for malignant neoplasm of prostate
CPT/HCPCS: 36415; 80053; 80061; 81001; 82043; 82306; 82570; 83036; 84153; 85025; 85610; 99211

== ENCOUNTER 2024-05-29 09:33 | Outpatient (AMB) | payer MEDICARE, MEDICAID, SELFPAY ==
--- NOTE | 2024-05-29 09:35 | A.OFFVIS_ITS ---
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 He is a patient of Dr. Felix. 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 Symptoms have been present for/since Ongoing. Procedure(s)/Diagnosis causing dysfunction include diabetes. Current treatment includes none. Prior therapies include oral medications - sildenafil on demand. At this time he experiences erections are partial and insufficient for vaginal penetration, that undergo rapid detumesence after penetration, YUDITH 1-7 Severe ED. Nocturnal erections Minimal. Currently they are in a stable relationship. Associated problems hypertension Yes diabetes Yes dyslipidemia Yes Recent labs included 11/15 T 500, 11/18 423 1.8 Review of Systems Const Denies chills and Denies fever(s) Card Reports no additional complaints and Denies syncope Resp Denies cough GI Denies abdominal pain and Denies heartburn Reports as per HPI and Denies change in libido Neuro Denies syncope Psych Denies change in libido Endo Denies change in libido Physical Exam Const General: cooperative, healthy appearing, comfortable and no acute distress Orientation/consciousness: patient oriented x3 HEENT Face and sinus: Yes normal facial exam Mouth: moist mucous membranes Neck Neck: Yes normal visual inspection, Yes full ROM and Yes trachea midline Chest Chest palpation & inspection: normal inspection of the chest Resp Effort & Inspection: normal respiratory effort, able to speak in complete sentences and no respiratory distress GI Inspection: Yes normal to inspection Back/Spine/Pelvis Cervical Spine: normal cervical lordosis Thoracic/Lumbar Spine: thoracic and lumbar spine normal to inspection Skin General skin exam: no rashes or lesions noted Neuro General: patient oriented x3, gait normal, tone normal and moves all extremities Extrem General: Yes normal to inspection and Yes capillary refill normal Office Procedures Post Void Residual Post Residual Void Post Void Residual (PVR): 14 [id number] Void Residual by ultrasound Results AMB Urinalysis, Automated UA Leukoctes 0 Gloria/uL Last Edit by JAMIE Candelaria on 05/29/24 09:46 UA Nitrite Negative Last Edit by JAMIE Candelaria on 05/29/24 09:46 UA Urobilinogen 1 mg/dL Last Edit by JAMIE Candelaria on 05/29/24 09:46 UA Protein 100 mg/dL Last Edit by Jairon Fink CCM on 05/29/24 09:46 UA pH 5.5 Last Edit by Jairon Fink CCM on 05/29/24 09:46 UA Blood 0 Sonny/uL Last Edit by JAMIE Candelaria on 05/29/24 09:46 UA Specific [place] 1.015 Last Edit by JAMIE Candelaria on 05/29/24 09: 46 UA Ketone Negative Last Edit by JAMIE Candelaria on 05/29/24 09:46 UA Bilirubin 0 mg/dL Last Edit by Jairon Fink CCM on 05/29/24 09:46 UA Glucose 500 mg/dL Last Edit by Jairon Fink CCM on 05/29/24 09:46 Results Reviewed Results Reviewed: Laboratory Last Values Urine pH (Auto) 5.5 05/29/24 09:45 Specific [place] (Auto) 1.015 05/29/24 09:45 Urine Protein (Auto) 100 mg/dL 05/29/24 09:45 Glucose (UA)(Auto) 500 mg/dL 05/29/24 09:45 Urine Ketones (Auto) Negative 05/29/24 09:45 Urine Blood (Auto) 0 Sonny/uL 05/29/24 09:45 Urine Nitrite (Auto) Negative 05/29/24 09:45 Urine Bilirubin (Auto) 0 mg/dL 05/29/24 09:45 Urine Urobilinogen (Auto) 1 mg/dL 05/29/24 09:45 Leukocyte Esterase (Auto) 0 Gloria/uL 05/29/24 09:45 Assessment & Plan Assessment & Plan (1) Nocturia more than twice per night: Code(s): R35.1 - Nocturia Category: Medical (2) Erectile dysfunction associated with type 2 diabetes mellitus: Code(s): E11.69 - Type 2 diabetes mellitus with other specified complication; N52.1 - Erectile dysfunction due to diseases classified elsewhere Category: Medical Plan Six-month follow up Refilled medications Start daily tadalafil with on demand sildenafil Orders: Orders AMB Urinalysis Automated Today Z13.9 - Encounter for screening, unspecified Medications: New betamethasone dipropionate 0.05% Thin coat 2 times per day 1 appl topical BID 15 grams 0RF Q55.69 - Other congenital malformation of penis Changed From valacyclovir 500 mg PO BID To valacyclovir Take 1 tablet by mouth twice a day for 3 days use when symptoms start 500 mg PO BID 7 days 14 tabs 0RF Refilled tadalafil Daily medication 10 mg PO DAILY 90 days 90 tabs 1RF sexual activity E11.69 - Type 2 diabetes mellitus with other specified complication, N52.1 - Erectile dysfunction due to diseases classified elsewhere Patient Instructions: Imaging studies, laboratory and physical exam results were discussed and reviewed in detail. No major barriers to patient understanding were identified. An opportunity to ask questions regarding the treatment plan was provided. All questions were answered. The patient expressed understanding and agreement with the above treatment plan. The patient is aware they should contact our office by phone for worsening of their current condition or the appearance of new urologic symptoms. Compliance is encouraged with any medications and followup testing that is ordered. It is a privilege to participate in the urologic care of your patient. If you have any questions or concerns regarding treatment for the above conditions, or other urologic issues, please do not hesitate to contact me. The office telephone contact is [phone]. This note is constructed using voice recognition software. While every effort has been made to ensure accuracy extrusion press supervisor errors may have been included. Yours sincerely, Dr Efrem Gamboa MD, [facility] - Urology Providers of Expert, Compassionate Care for the Genitourinary System Coding Level of Care Code Est Pt Level 4 (77914) Diagnoses Nocturia more than twice per night R35.1 Erectile dysfunction associated with type 2 diabetes mellitus E11.69; N52.1 CPT Codes Post Residual Void - PVR CPT Code: 28704-Ckwn Void Residual by ultrasound ([id number])
--- OUTSIDE RECORDS SUMMARY | 2024-05-29 10:10 | XMS_ITS | Encounter Summary ---
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); Persistent proteinuria Social History Tobacco Use Types Packs/Day Years Used Date Smoking Tobacco: Never Smokeless Tobacco: Never Alcohol Use Standard Drinks/Week Comments Never 0 (1 standard drink = 0.6 oz pur e alcohol) Sex and Gender Information Value Date Recorded Sex Assigned at Not on file Legal Sex Male 4:56 PM EST Gender Identity Not on file Sexual Orientation Not on file documented as of this encounter Miscellaneous Notes * Telephone Encounter - Christian Pearce MD - 11/11/2023 10:21 PM EDT Needs repeat labs in4-6 weeks documented in this encounter Plan of Treatment Upcoming Encounters Date Type Department Care Team (Late st Contact Info) Description 11/02/2024 2:30 PM EDT Office Visit [facility] [address] [place] [phone] Christian Pearce MD [address] [facility] [address] [place] [address] Scheduled Orders Name Type Priority Associated Diagnoses Orde r Schedule Renal function panel Lab Routine Type 2 diabetes mellitus with diabetic chronic kidney disease (HCC) Persistent proteinuria Expected: 12/16/2023, Expires: 12/11/2024 documented as of this encounter Visit Diagnoses Diagnosis Type 2 diabetes mellitus with diabetic chronic kidney disease (HCC)- Primary Persistent proteinuria documented in this encounter Care Teams Manager Distribution Relationship Specialty Start Date End Date Vernon Felix MD [address] [place] [address] [id number] [place], [place] PCP - General 05/09/20 documented as of this encounter
--- OUTSIDE RECORDS SUMMARY | 2024-05-29 10:10 | XMS_ITS | Encounter Summary ---
Author Organization [facility] Address [address] [facility] [address] [place] [address] Phone Care Team Providers Care Political Science Instructor Name Role Phone Vernon Felix MD Primary Care Provider [phone] Reason for Visit * Reason Onset Date Comments Med Refill 05/22/2024 Encounter Details Date Type Department Care Team (Late Contact Info) Description 05/22/2024 Refill [facility] [address] [facility] [address] [place] [address] Bettye Loya MA [address] [facility] [address] [place] [phone] Social History Tobacco Use Types Packs/Day Years [...] on file documented as of this encounter Plan of Treatment Upcoming Encounters Date Type Department Care Team (Late Contact Info) Description 11/02/2024 2:30 PM EDT Office Visit [facility] [address] [place] [address] [place] [phone] Christian Pearce MD [address] [facility] [address] [place] [address] documented as of this encounter Visit Diagnoses Not on filedocumented in this encounter Care Teams Political Science Instructor Relationship Specialty Start Date End Date Vernon Felix MD [address] [place] [address] [address] [place] PCP - General 05/09/20 documented as of this encounter
--- OUTSIDE RECORDS SUMMARY | 2024-05-29 10:10 | XMS_ITS | Clinical Summary ---
Author Organization [facility] Address [address] [place] [address] Phone Care Team Providers Care Can Dragger Name Role Phone Vernon Felix MD Primary Care Provider [phone] Allergies No known active allergies Medications warfarin (COUMADIN) 2.5 mg split tablet 3 mg 3 mg Acti ve metFORMIN (GLUCOPHAGE) 500 MG tablet Take 1 tablet by mouth 2 (two) times a day 0 Active simvastatin (ZOCOR) 10 MG tablet Take 10 mg by mouth every night Active Canagliflozin (Invokana) 300 MG tablet Take by mouth Active sildenafil (VIAGRA) 100 MG tablet TAKE ONE TABLET BY MOUTH EVERY DAY 60 MINUTES BEFORE INTENDED ACTIVITY NEEDED 3 Active losartan (COZAAR) 25 MG tablet TAKE TWO TABLETS BY MOUTH EVERY DAY 180 tablet 3 4 Active Finerenone (Kerendia) 10 MG tablet Take 1 tablet by mouth 1 (one) time each day 60 tablet 3 5 05/22/19 26 Active Finerenone (Kerendia) 10 MG tablet Take 1 tablet by mouth 1 (one) time each day 60 tablet 3 4 05/22/19 25 Discontinu ed(Reorder (does not appear on AVS)) Active Problems Problem Noted Date Diagnosed Date Microalbuminuria 07/04/2020 Chronic kidney disease, stage 2 (mild) 1 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 [address] [place] [address] Bettye Loya MA from Last 3 Months Family History Medical History Relation Comments Hypertension Mother Relation Status Comments Mother Social History Tobacco Use Types Packs/Day Years Used Date Smoking Tobacco: Never Smokeless Tobacco: Never Alcohol Use Standard Drinks/Week Comments Never 0 (1 standard drink = 0.6 oz pur e alcohol) Sex and Gender Information Value Date Recorded Sex Assigned at Not on file Legal Sex Male 4:56 PM EST Gender Identity Not on file Sexual Orientation Not on file Last Filed Vital Signs Vital Sign Reading Time Taken Comments Blood Pressure 136/62 11/11/2023 1:04 PM EDT Pulse 85 11/11/2023 1:04 PM EDT Temperature - - Respiratory Rate - - Oxygen Saturation 96% 11/11/2023 1:04 PM EDT Inhaled Oxygen Concentration - - Weight 84.3 kg (185 lb 12.8 oz) 11/11/2023 1:04 PM EDT Height - - Body Mass Index - - Plan of Treatment Upcoming Encounters Date Type Department Care Team (Late st Contact Info) Description 11/02/2024 2:30 PM EDT Office Visit [facility] [address] [place] [address] Christian Pearce MD [address] [facility] 204 [place] [phone] Health Maintenance Due Date Last Done Comments Pneumococcal Vaccine: 65+ Years (1 of 2 - PCV) 1961 Colorectal Cancer Screening: Annual FOBT 2006 Colorectal Cancer Screening: Colonoscopy 2006 Colorectal Cancer Screening: Sigmoidoscopy 2006 Diabetes: Ophthalmology Exam 07/04/2020 Diabetes: Pedal Pulse Checked 07/04/2020 Diabetes: Sensory Foot Exam 07/04/2020 Diabetes: Visual Foot Exam 07/04/2020 Diabetes: Hemoglobin A1C 09/16/2022 023, 06/02/2019 Influenza Vaccine (#1) 2023 Hepatitis B Vaccine Aged Out No longe r eligible based on patient's age to complete this topic Procedures Procedure Name Priority Date/Time Associated Diagnosis Comments EXT RESULT ENTRY Routine 06/19/2022 from Last 3 Months or Most Recently Relevant to Health Maintenance Results * (ABNORMAL) EXT RESULT ENTRY (06/19/2022) WBC 4.6 3.3 - 10.0 10*3/ML Red Blood Cell Count 5.39 Hemoglobin 16.6 13.5 - 17.5 Hematocrit 49.7 41.0 - 53.0 Platelets 169 150 - 399 10*3/UL MCV 92.2 82.0 - 108.0 Sodium 139 137 - 147 Potassium 4.3 3.4 - 5.5 Chloride 103.0 99.0 - 108.0 Anion Gap 13 <=30 MMOL/L BUN 19 4 - 21 mg/dL Creatinine 0.84 0.60 - 1.30 mg/dL Calcium 8.9 8.7 - 10.7 mg/dL Hemoglobin A1C 7.4(A) 4.0 - 6.0 06/19/2022 Historical Provider LAB BLOOD ORDERABLES Ania l Result from Last 3 Months or Most Recently Relevant to Health Maintenance Insurance [employer] MEDICARE WELLCARE MEDICARE Care Teams Can Dragger Relationship Specialty Start Date End Date Vernon Felix MD [address] [place] [address] DRIVE [address] [place] PCP - General 05/09/20
== END 2024-05-29 10:06 | disposition home or self-care (01) ==
PROVIDERS: PCP Internal Medicine; Visit Provider Urology
DX: R35.1 Nocturia (principal); E11.69 Type 2 diabetes mellitus with other specified complication; N52.1 Erectile dysfunction due to diseases classified elsewhere; Z13.9 Encounter for screening, unspecified
CPT/HCPCS: 99214

== ENCOUNTER → 2024-05-29 09:33 | Outpatient (BNVA) | payer MEDICARE, MEDICAID, SELFPAY | PROVIDERS: PCP Internal Medicine; Visit Provider Urology | DX: E11.69 Type 2 diabetes mellitus with other specified complication (principal); N52.1 Erectile dysfunction due to diseases classified elsewhere; R35.1 Nocturia; Z79.899 Other long term (current) drug therapy | CPT/HCPCS: 51798; 81003; 99212 ==

== ENCOUNTER 2024-06-12 08:50 | Outpatient (AMB) | payer MEDICARE, MEDICAID, SELFPAY ==
--- NOTE | 2024-06-12 09:08 | MHC.OFFVISCO ---
Intake Intake Visit Reasons: Anticoagulation Allergies peanut [PEANUT] Adverse Reaction (Intermediate, Verified 06/12/24 09:02) ANGIOEDEMA SEASONAL ALLERGIES Allergy (Mild, Uncoded 06/12/24 09:02) STUFFY NOSE Medication List - Last Reconciled 06/12/24 by Neelam Villalobos, RN betamethasone dipropionate 0.05% 1 appl topical BID carvedilol 3.125 mg PO BID finerenone (Kerendia) mg PO fluticasone propionate 50 mcg/actuation 1 spray intranasal DAILY loratadine (Allergy Relief (loratadine)) 10 mg PO DAILY losartan 50 mg PO DAILY metformin ER 500 mg PO DAILY sildenafil 100 mg PO ONCE PRN 30 days simvastatin mg PO tadalafil 10 mg PO DAILY 90 days valacyclovir 500 mg PO BID 7 days warfarin mg See Protocol PO Nursing Note INR: 2.8- in therapeutic range of 2-3 Medications and supplements reviewed- pt states invokana d/c and now on farxiga- no interaction per micromedex No changes in health, diet, medications, or supplements, Denies any signs and symptoms of bleeding or bruising or clotting. Bleeding, bruising, clotting discussed Nutritional guidance given Dose: 6mg x 3, 3mg x 4 F/U INR: 4 weeks Patient verbalizes understanding of instructions given Coding Level of Care Code Est Patient Level 1 Diagnoses Current use of anticoagulant therapy Z79.01 Assessment & Plan Assessment & Plan (1) Current use of anticoagulant therapy: Code(s): Z79.01 - alf (current) use of anticoagulants Category: Medical Medications: New dapagliflozin propanediol (Farxiga) 10 mg PO DAILY
--- OUTSIDE RECORDS SUMMARY | 2024-06-12 09:08 | XMS_ITS | Encounter Summary ---
Author Organization [facility] Address [address] [facility] 204 [place] [address] Phone Care Team Providers Care Plating Foreman Name Role Phone Vernon Felix MD Primary Care Provider [phone] Reason for Visit * Reason Onset Date Comments Med Refill 05/22/2024 Encounter Details Date Type Department Care Team (Late Contact Info) Description 05/22/2024 Refill [facility] [address] [facility] 204 [place] [address] Bettye Loya MA 100 [facility] 200 [place] [phone] Social History Tobacco Use Types Packs/Day Years [...] Office Visit [facility] [address] [place] [address] [place] [phone] Christian Pearce MD [address] [facility] 204 [place] [address] documented as of this encounter Visit Diagnoses Not on filedocumented in this encounter Care Teams Plating Foreman Relationship Specialty Start Date End Date Vernon Felix MD [address] [place] [address] [address] [place] PCP - General 05/09/20 documented as of this encounter
--- OUTSIDE RECORDS SUMMARY | 2024-06-12 09:08 | XMS_ITS | Encounter Summary ---
Author Organization [facility] [place] Address [address] [facility] 200 [place] [address] Phone Care Team Providers Care Feltmaker And Weigher Name Role Phone Vernon Felix MD Primary Care Provider [phone] Encounter Details Date Type Department Care Team (Latest Contact Info) Description 11/11/2023 Office Communication [facility] [address] [facility] 200 [place] [phone] Christian Pearce MD [address] [phone] Type 2 diabetes mellitus with diabetic chronic [...] Visit [facility] [address] [place] [address] Christian Pearce MD [address] [facility] 204 [place] [address] Scheduled Orders Name Type Priority Associated Diagnoses Orde r Schedule Renal function panel Lab Routine Type 2 diabetes mellitus with diabetic chronic kidney disease (HCC) Persistent proteinuria Expected: 12/16/2023, Expires: 12/11/2024 documented as of this encounter Visit Diagnoses Diagnosis Type 2 diabetes mellitus with diabetic chronic kidney disease (HCC)- Primary Persistent proteinuria documented in this encounter Care Teams Feltmaker And Weigher Relationship Specialty Start Date End Date Vernon Felix MD [address] [place] [address] [address] [place], [place] PCP - General 05/09/20 documented as of this encounter
--- OUTSIDE RECORDS SUMMARY | 2024-06-12 09:08 | XMS_ITS | Clinical Summary ---
Author Organization [facility] Address [address] [facility] [address] [address] [facility] [address] Phone Care Team Providers Care Cephalometric Tracer Name Role Phone Vernon Felix MD Primary Care Provider [phone] Allergies No known active allergies Medications warfarin [...] Refill [facility] [address] [place] [phone] Bettye Loya MA from Last 3 [...] Visit [facility] [address] [place] [address] Christian Pearce MD [address] [facility] [address] [place] [phone] Health Maintenance Due Date Last Done Comments [...] Insurance WELLCARE MEDICARE WELLCARE MEDICARE Care Teams Cephalometric Tracer Relationship Specialty Start Date End Date Vernon Felix MD [address] [place] [address] [address] [place] PCP - General 05/09/20
[2024-06-12 09:09] LABS: Prothrombin Time Whole Bld POC 33.3 sec (11.1-13.5); ~PT, ~INR - Anti Coag Clinic 2.8 (0.9-1.1)
== END 2024-06-12 09:15 | disposition home or self-care (01) ==
LOC: HO.ACS 08:50
PROVIDERS: PCP Internal Medicine; Visit Provider Internal Medicine
DX: Z79.01 Long term (current) use of anticoagulants (principal)

== ENCOUNTER → 2024-06-12 08:50 | Outpatient (BNVA) | payer MEDICARE, MEDICAID, SELFPAY | PROVIDERS: PCP Internal Medicine; Visit Provider Internal Medicine | DX: I48.20 Chronic atrial fibrillation, unspecified (principal); Z79.01 Long term (current) use of anticoagulants; Z51.81 Encounter for therapeutic drug level monitoring | CPT/HCPCS: 85610; 99211 ==

== ENCOUNTER 2024-07-10 08:57 | Outpatient (AMB) | payer MEDICARE, MEDICAID, SELFPAY ==
[2024-07-10 09:08] LABS: Prothrombin Time Whole Bld POC 30.2 sec (11.1-13.5); ~PT, ~INR - Anti Coag Clinic 2.5 (0.9-1.1)
--- NOTE | 2024-07-10 09:13 | MHC.OFFVISCO ---
Intake Intake Visit Reasons: Anticoagulation Allergies peanut [PEANUT] Adverse Reaction (Intermediate, Verified 07/10/24 09:02) ANGIOEDEMA SEASONAL ALLERGIES Allergy (Mild, Uncoded 07/10/24 09:02) STUFFY NOSE Medication List - Last Reconciled 07/10/24 by Mireya Silver RN betamethasone dipropionate 0.05% 1 appl topical BID carvedilol 3.125 mg PO BID dapagliflozin propanediol (Farxiga) 10 mg PO DAILY finerenone (Kerendia) mg PO fluticasone propionate 50 mcg/actuation 1 spray intranasal DAILY loratadine (Allergy Relief (loratadine)) 10 mg PO DAILY losartan 50 mg PO DAILY metformin ER 500 mg PO DAILY sildenafil 100 mg PO ONCE PRN 30 days simvastatin mg PO tadalafil 10 mg PO DAILY 90 days valacyclovir 500 mg PO BID 7 days warfarin mg See Protocol PO Nursing Note INR: 2.5 in therapeutic range Medications and supplements reviewed No changes in health, diet, medications, or supplements, Denies any signs and symptoms of bleeding or bruising or clotting. Bleeding, bruising, clotting discussed Nutritional guidance given Dose: KEEP SAME DOSE 6MG X 3 DAYS/ 3MG X 4 DAYS F/U INR: 1 MONTH Patient verbalizes understanding of instructions given Coding Level of Care Code Est Patient Level 1 Diagnoses Current use of anticoagulant therapy Z79.01 Assessment & Plan Assessment & Plan (1) Current use of anticoagulant therapy: Code(s): Z79.01 - FPC (current) use of anticoagulants Category: Medical
--- OUTSIDE RECORDS SUMMARY | 2024-07-10 09:22 | XMS_ITS | Clinical Summary ---
Author Organization [facility] Address 10 [facility] 3 09 [facility] [place] [address] Phone Care Team Providers Care Director Of Land Name Role Phone Vernon Felix MD Primary Care Provider [phone] Allergies No known active allergies Medications warfarin (COUMADIN) 2.5 mg split tablet 3 mg 3 mg Acti ve metFORMIN (GLUCOPHAGE) 500 MG tablet Take 1 tablet by mouth 2 (two) times a day 09/24/2019 Active simvastatin (ZOCOR) 10 MG tablet Take 10 mg by mouth every night Active Canagliflozin (Invokana) 300 MG tablet Take by mouth Active sildenafil (VIAGRA) 100 MG tablet TAKE ONE TABLET BY MOUTH EVERY DAY 60 MINUTES BEFORE INTENDED ACTIVITY NEEDED 05/10/2022 Active losartan (COZAAR) 25 MG tablet TAKE TWO TABLETS BY MOUTH EVERY DAY 180 tablet 3 10/28/2023 Active Finerenone (Kerendia) 10 MG tablet Take 1 tablet by mouth 1 (one) time each day 60 tablet 3 05/22/2024 05/22/19 26 Active Active Problems Problem Noted Date Diagnosed Date Microalbuminuria 07/04/2020 Chronic kidney disease, stage 2 (mild) 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 [address] [place] [address] [address] [place] [address] Bettye Loya MA from Last 3 [...] Visit [facility] [address] [place] [address] Christian Pearce MD [address] [facility] 204 [place] [phone] Health Maintenance Due Date Last Done Comments [...] Hemoglobin A1C 7.4(A) 4.0 - 6.0 06/19/2022 [facility] Provider LAB BLOOD ORDERABLES Ania l Result from Last 3 Months or Most Recently Relevant to Health Maintenance Insurance WE[employer] MEDICARE WELLCARE MEDICARE Care Teams Director Of Land Relationship Specialty Start Date End Date Vernon Felix MD [address] [place] [address] [address] [place] PCP - General 05/09/20
--- OUTSIDE RECORDS SUMMARY | 2024-07-10 09:22 | XMS_ITS | Encounter Summary ---
Author Organization [facility] Address [address] [facility] 200 [place] [address] Phone Care Team Providers Care Shop Fitter Name Role Phone Vernon Felix MD Primary Care Provider [phone] Encounter Details Date Type Department Care Team (Latest Contact Info) Description 11/11/2023 Office Communication [facility] [address] [facility] 200 [place] [phone] Christian Pearce MD [address] [phone] Type 2 diabetes mellitus with diabetic chronic [...] Visit [facility] [address] [place] [address] Christian Pearce MD [address] [facility] 204 [place] [address] Scheduled Orders Name Type Priority Associated Diagnoses Orde r Schedule Renal function panel Lab Routine Type 2 diabetes mellitus with diabetic chronic kidney disease (HCC) Persistent proteinuria Expected: 12/16/2023, Expires: 12/11/2024 documented as of this encounter Visit Diagnoses Diagnosis Type 2 diabetes mellitus with diabetic chronic kidney disease (HCC)- Primary Persistent proteinuria documented in this encounter Care Teams Shop Fitter Relationship Specialty Start Date End Date Vernon Felix MD [address] [place] [address] [address] [place], [place] PCP - General 05/09/20 documented as of this encounter
== END 2024-07-10 09:14 | disposition home or self-care (01) ==
LOC: HO.ACS 08:57
PROVIDERS: PCP Internal Medicine; Visit Provider Internal Medicine
DX: Z79.01 Long term (current) use of anticoagulants (principal)

== ENCOUNTER → 2024-07-10 08:57 | Outpatient (BNVA) | payer MEDICARE, MEDICAID, SELFPAY | PROVIDERS: PCP Internal Medicine; Visit Provider Internal Medicine | DX: I48.20 Chronic atrial fibrillation, unspecified (principal); Z79.01 Long term (current) use of anticoagulants; Z51.81 Encounter for therapeutic drug level monitoring | CPT/HCPCS: 85610; 99211 ==

== ENCOUNTER 2024-08-07 09:02 | Outpatient (AMB) | payer MEDICARE, MEDICAID, SELFPAY ==
[2024-08-07 09:18] LABS: Prothrombin Time Whole Bld POC 29.1 sec (11.1-13.5); ~PT, ~INR - Anti Coag Clinic 2.4 (0.9-1.1)
--- OUTSIDE RECORDS SUMMARY | 2024-08-07 09:18 | XMS_ITS | Clinical Summary ---
Author Organization [facility] Address 10 [facility] 3 09 [facility] [place] [place] [address] Phone Care Team Providers Care Ball Mill Mixer Name Role Phone Vernon Felix MD Primary Care Provider [phone] Allergies No known active allergies Medications warfarin [...] Refill [facility] [address] [place] [address] 204 [place] [address] Bettye Loya MA from Last [...] Visit [facility] [address] [place] [phone] Christian Pearce MD [address] [facility] 204 [place] [address] Health Maintenance Due Date Last Done Comments Pneumococcal Vaccine: 50+ Years (1 of 2 - PCV) 1961 Colorectal Cancer Screening: Annual FOBT 2006 Colorectal Cancer Screening: Colonoscopy 2006 Colorectal Cancer Screening: Sigmoidoscopy 2006 Diabetes: Ophthalmology Exam 07/04/2020 Diabetes: Pedal Pulse Checked 07/04/2020 Diabetes: Sensory Foot Exam 07/04/2020 Diabetes: Visual Foot Exam 07/04/2020 Diabetes: Hemoglobin A1C 09/16/2022 023, 06/02/2019 Influenza Vaccine (Season Ended) 2024 Hepatitis B Vaccine Aged Out No longe [...] Hemoglobin A1C 7.4(A) 4.0 - 6.0 06/19/2022 [facility] Provider LAB BLOOD ORDERABLES Ania l Result from Last 3 Months or Most Recently Relevant to Health Maintenance [place] [address] [place] [address] Care Teams Ball Mill Mixer Relationship Specialty Start Date End Date Vernon Felix MD [address] [place] [address] [address] [place] PCP - General 05/09/20
--- OUTSIDE RECORDS SUMMARY | 2024-08-07 09:18 | XMS_ITS | Encounter Summary ---
Author Organization [facility] [place] Address [address] [facility] 200 [place] [address] Phone Care Team Providers Care Garage Door Hanger Name Role Phone Vernon Felix MD Primary Care Provider [phone] Encounter Details Date Type Department Care Team (Latest Contact Info) Description 11/11/2023 Office Communication [facility] [address] [facility] 200 [place] [phone] Christian Pearce MD [address] [phone] Type 2 diabetes mellitus with diabetic chronic [...] Visit [facility] [address] [place] [address] Christian Pearce MD [address] [facility] 204 [place] [address] Scheduled Orders Name Type Priority Associated Diagnoses Orde r Schedule Renal function panel Lab Routine Type 2 diabetes mellitus with diabetic chronic kidney disease (HCC) Persistent proteinuria Expected: 12/16/2023, Expires: 12/11/2024 documented as of this encounter Visit Diagnoses Diagnosis Type 2 diabetes mellitus with diabetic chronic kidney disease (HCC)- Primary Persistent proteinuria documented in this encounter Care Teams Garage Door Hanger Relationship Specialty Start Date End Date Vernon Felix MD [address] [place] [address] [address] [place], [place] PCP - General 05/09/20 documented as of this encounter
--- NOTE | 2024-08-07 09:19 | MHC.OFFVISCO ---
Intake Intake Visit Reasons: Anticoagulation Allergies peanut [PEANUT] Adverse Reaction (Intermediate, Verified 08/07/24 09:13) ANGIOEDEMA SEASONAL ALLERGIES Allergy (Mild, Uncoded 08/07/24 09:13) STUFFY NOSE Medication List - Last Reconciled 08/07/24 by Jessica Ken, RN betamethasone dipropionate 0.05% 1 appl topical BID carvedilol 3.125 mg PO BID dapagliflozin propanediol (Farxiga) 10 mg PO DAILY finerenone (Kerendia) mg PO fluticasone propionate 50 mcg/actuation 1 spray intranasal DAILY loratadine (Allergy Relief (loratadine)) 10 mg PO DAILY losartan 50 mg PO DAILY metformin ER 500 mg PO DAILY sildenafil 100 mg PO ONCE PRN 30 days simvastatin mg PO tadalafil 10 mg PO DAILY 90 days valacyclovir 500 mg PO BID 7 days warfarin mg See Protocol PO Nursing Note INR: 2.4in therapeutic range of 2-3 Medications and supplements reviewed No changes in health, diet, medications, or supplements, Denies any signs and symptoms of bleeding or bruising or clotting. Bleeding, bruising, clotting discussed Nutritional guidance given Dose: 3mg X 4 days and 6mg X 3 days (M/W/F) F/U INR: 4 weeks Patient verbalizes understanding of instructions given Coding Level of Care Code Est Patient Level 1 Diagnoses Current use of anticoagulant therapy Z79.01 Assessment & Plan Assessment & Plan (1) Current use of anticoagulant therapy: Code(s): Z79.01 - manager terminal (current) use of anticoagulants Category: Medical
== END 2024-08-07 09:23 | disposition home or self-care (01) ==
LOC: HO.ACS 09:02
PROVIDERS: PCP Internal Medicine; Visit Provider Internal Medicine Medical Oncology
DX: Z79.01 Long term (current) use of anticoagulants (principal)

== ENCOUNTER → 2024-08-07 09:02 | Outpatient (BNVA) | payer MEDICARE, MEDICAID, SELFPAY | PROVIDERS: PCP Internal Medicine; Visit Provider Internal Medicine Medical Oncology | DX: I48.20 Chronic atrial fibrillation, unspecified (principal); Z51.81 Encounter for therapeutic drug level monitoring; Z79.01 Long term (current) use of anticoagulants | CPT/HCPCS: 85610; 99211 ==

== ENCOUNTER 2024-09-04 08:47 | Outpatient (AMB) | payer MEDICARE, MEDICAID, SELFPAY ==
[2024-09-04 08:59] LABS: Prothrombin Time Whole Bld POC 19.4 sec (11.1-13.5); ~PT, ~INR - Anti Coag Clinic 1.6 (0.9-1.1)
--- OUTSIDE RECORDS SUMMARY | 2024-09-04 08:59 | XMS_ITS | Clinical Summary ---
Author Organization [facility] [place] Address [address] [facility] [address] [place] [address] Phone Care Team Providers Care Mold Filler And Drainer Name Role Phone Vernon Felix MD Primary Care Provider Allergies No known active allergies Medications warfarin [...] diabetes mellitus with diabetic nephropat hy 07/04/2020 Family History Medical History Relation Comments Hypertension [...] Visit [facility] [address] [place] [address] Christian Pearce MD [address] [facility] 204 [place] [address] Health Maintenance Due Date Last Done Comments Pneumococcal Vaccine: 50+ Years (1 of 2 - PCV) 1976 Colorectal Cancer Screening: Annual FOBT 2006 Colorectal [...] Relevant to Health Maintenance Insurance Wellcare Medicare Wellcare Medicare Care Teams Mold Filler And Drainer Relationship Specialty Start Date End Date Vernon Felix MD [address] [place] [address] [address] [place] PCP - General 05/09/20
--- OUTSIDE RECORDS SUMMARY | 2024-09-04 08:59 | XMS_ITS | Encounter Summary ---
Author Organization [facility] [place] Address [address] [facility] 200 [place] [address] Phone Care Team Providers Care Single Pass Soil Stabilizer Operator Name Role Phone Vernon Felix MD Primary Care Provider [phone] Encounter Details Date Type Department Care Team (Latest Contact Info) Description 11/11/2023 Office Communication [facility] [address] [facility] 200 [place] [phone] Christian Pearce MD [address] [phone] Type 2 diabetes mellitus with diabetic chronic [...] Visit [facility] [address] [place] [address] Christian Pearce MD [address] [facility] 204 [place] [address] Scheduled Orders Name Type Priority Associated Diagnoses Orde r Schedule Renal function panel Lab Routine Type 2 diabetes mellitus with diabetic chronic kidney disease (HCC) Persistent proteinuria Expected: 12/16/2023, Expires: 12/11/2024 documented as of this encounter Visit Diagnoses Diagnosis Type 2 diabetes mellitus with diabetic chronic kidney disease (HCC)- Primary Persistent proteinuria documented in this encounter Care Teams Single Pass Soil Stabilizer Operator Relationship Specialty Start Date End Date Vernon Felix MD [address] [place] [address] [address] [place], [place] PCP - General 05/09/20 documented as of this encounter
--- NOTE | 2024-09-04 09:07 | MHC.OFFVISCO ---
Intake Intake Visit Reasons: Anticoagulation Allergies peanut [PEANUT] Adverse Reaction (Intermediate, Verified 09/04/24 08:48) ANGIOEDEMA SEASONAL ALLERGIES Allergy (Mild, Uncoded 09/04/24 08:48) STUFFY NOSE Medication List - Last Reconciled 09/04/24 by Mireya Silver, RN betamethasone dipropionate 0.05% 1 appl topical BID carvedilol 3.125 mg PO BID dapagliflozin propanediol (Farxiga) 10 mg PO DAILY finerenone (Kerendia) mg PO fluticasone propionate 50 mcg/actuation 1 spray intranasal DAILY loratadine (Allergy Relief (loratadine)) 10 mg PO DAILY losartan 50 mg PO DAILY metformin ER 500 mg PO DAILY sildenafil 100 mg PO ONCE PRN 30 days simvastatin mg PO tadalafil 10 mg PO DAILY 90 days warfarin mg See Protocol PO Nursing Note INR: 1.6 NOT therapeutic range Medications and supplements reviewed Had an increase in allergy symptoms took more allergy med than usual/ maybe possible if inflammation from allergies could lower INR , Denies any signs and symptoms of bleeding or bruising or clotting. Bleeding, bruising, clotting discussed Nutritional guidance given - no greens today or tomorrow- eat orange and reds today to help raise the INR. Dose: increase to 6mg x 4 days this week, then 6mg x 3 days/ 3mg x 4 days - if still low increase weekly dose F/U INR: 2 weeks per pt request Patient verbalizes understanding of instructions given Coding Level of Care Code Est Patient Level 1 Diagnoses Current use of anticoagulant therapy Z79.01 Assessment & Plan Assessment & Plan (1) Current use of anticoagulant therapy: Code(s): Z79.01 - terminal computer operator (current) use of anticoagulants Category: Medical
== END 2024-09-04 09:11 | disposition home or self-care (01) ==
LOC: HO.ACS 08:47
PROVIDERS: PCP Internal Medicine; Visit Provider Internal Medicine Medical Oncology
DX: Z79.01 Long term (current) use of anticoagulants (principal)

== ENCOUNTER → 2024-09-04 08:47 | Outpatient (BNVA) | payer MEDICARE, MEDICAID, SELFPAY | PROVIDERS: PCP Internal Medicine; Visit Provider Internal Medicine Medical Oncology | DX: I48.20 Chronic atrial fibrillation, unspecified (principal); Z79.01 Long term (current) use of anticoagulants; Z51.81 Encounter for therapeutic drug level monitoring | CPT/HCPCS: 85610; 99211 ==

== ENCOUNTER 2024-09-16 09:41 | Outpatient (AMB) | payer MEDICARE, MEDICAID, SELFPAY ==
--- NOTE | 2024-09-08 15:24 | A.OFFPC_ITS ---
Intake Visit Reasons: Routine Track Machine Operator Repairer Required: No Accompanied by: Self / Same As Patient Allergies peanut [PEANUT] Adverse Reaction (Intermediate, Verified 09/08/24 15:24) ANGIOEDEMA SEASONAL ALLERGIES Allergy (Mild, Uncoded 09/04/24 08:48) STUFFY NOSE Tobacco use date assessed: 09/09/24 Fall risk assessment: No Falls in past year Last assessed Fall Risk: 09/09/24 Dental Screening Dental Screen Date: 09/08/24 Did you have a dental visit in the last 12 months?: Yes Did you have a dental problem in the last 6 months where you did not have access to dental care?: No Questionnaire PHQ-9 Over the last 2 weeks, how often have you been bothered by any of the following problems? 1. Little interest or pleasure in doing things: not at all 2. Feeling down, depressed, or hopeless: not at all 3. Trouble falling or staying asleep, or sleeping too much: not at all 4. Feeling tired or having little energy: not at all 5. Poor appetite or overeating: not at all 6. Feeling bad about yourself - or that you are a failure or have let yourself or your family down: not at all 7. Trouble concentrating on things, such as reading the newspaper or watching television: not at all 8. Moving or speaking so slowly that other people could have noticed. Or the opposite - being so fidgety or restless that you have been moving around a lot more than usual: not at all 9. Thoughts that you would be better off or of hurting yourself in some way: not at all Total score: 0 Source: Developed by Drs. Romero Patel, Christa Connor, Marvin Hardin and colleagues, with an educational khushbu from [employer]. Thrive Questionnaire Date Thrive assessed: 09/09/24 I am a: Patient Within the past 12 months, did the food you bought not last and you didn't have the money to get more?: Never true Within the past 12 months, did you worry whether your food would run out before you got money to buy more?: Never true Do you have trouble paying for medicines?: No Do you have trouble getting transportation to medical appointments?: No Do you have trouble paying your heating and electricity bill?: No Do you have trouble taking care of your child, family member or friend?: No Do you have trouble with day-to-day activities such as bathing, preparing meals, shopping, managing finances, etc.?: No Are you currently unemployed and looking for a job?: No Are you interested in more education?: No THRIVE Score: 0 LILLIE-7 AMB Questionnaire LILLIE-7 Date LILLIE - 7 assessed: 09/09/24 Feeling nervous, anxious, or on edge: 0 = Not at all Not being able to stop or control worryin = Not at all Worrying too much about different things: 0 = Not at all Trouble relaxin = Not at all Being so restless that it is hard to sit still: 0 = Not at all Becoming easily annoyed or irritable: 0 = Not at all Feeling afraid as if something awful might happen: 0 = Not at all Total LILLIE-7 score (0-4 normal; 5-9 mild; 10-14 moderate; 15-21 severe): 0 Source: Developed by Drs. Romero Patel, Christa Connor, Marvin Hardin and colleagues, with an educational khushbu from [employer] Coding
--- NOTE | 2024-09-16 09:32 | A.OFFPC_ITS ---
Vital Signs 09/16/24 09:44 Height 5 ft 9 in Weight 185 lb BMI 27.3 BP 124/72 Blood Pressure Location Rt brachial Position Sitting Pulse 57 Pulse Source Pulse Oximeter Temp 97.4 F Temp Source Axillary Pulse Oximetry (%) 99 Oxygen Delivery Method Room Air Intake Visit Reasons: Routine Cyber Security Required: No Accompanied by: Self / Same As Patient Allergies peanut [PEANUT] Adverse Reaction (Intermediate, Verified 09/16/24 09:32) ANGIOEDEMA SEASONAL ALLERGIES Allergy (Mild, Uncoded 09/04/24 08:48) STUFFY NOSE Tobacco use date assessed: 09/16/24 Fall risk assessment: No Falls in past year Last assessed Fall Risk: 09/16/24 Dental Screening Dental Screen Date: 09/16/24 Did you have a dental visit in the last 12 months?: Yes Did you have a dental problem in the last 6 months where you did not have access to dental care?: No [facility] Medical History Diabetes mellitus Surgical History History of colonoscopy (~01/12/14) Family History Mother No problems noted. Father No problems noted. Social History Housing: House Patient Tobacco Use Status: Former Tobacco user e-Cigarette/Vaping Use: Former Use service: No Current occupational status: employed Cognitive needs: No Hearing needs: No Vision needs: Yes (rx glasses) Questionnaire PHQ-9 Over the last 2 weeks, how often have you been bothered by any of the following problems? 1. Little interest or pleasure in doing things: not at all 2. Feeling down, depressed, or hopeless: not at all 3. Trouble falling or staying asleep, or sleeping too much: not at all 4. Feeling tired or having little energy: not at all 5. Poor appetite or overeating: not at all 6. Feeling bad about yourself - or that you are a failure or have let yourself or your family down: not at all 7. Trouble concentrating on things, such as reading the newspaper or watching television: not at all 8. Moving or speaking so slowly that other people could have noticed. Or the opposite - being so fidgety or restless that you have been moving around a lot more than usual: not at all 9. Thoughts that you would be better off or of hurting yourself in some way: not at all Total score: 0 Depression Screening Interpretation: Negative Depression Screening Done: Yes Source: Developed by Drs. Romero Patel, Christa Connor, Marvin Hardin and colleagues, with an educational khushbu from [employer]. Thrive Questionnaire Date Thrive assessed: 09/16/24 I am a: Patient Within the past 12 months, did the food you bought not last and you didn't have the money to get more?: Never true Within the past 12 months, did you worry whether your food would run out before you got money to buy more?: Never true Do you have trouble paying for medicines?: No Do you have trouble getting transportation to medical appointments?: No Do you have trouble paying your heating and electricity bill?: No Do you have trouble taking care of your child, family member or friend?: No Do you have trouble with day-to-day activities such as bathing, preparing meals, shopping, managing finances, etc.?: No Are you currently unemployed and looking for a job?: No Currently or been in a relationship where the following occur: No concerns reported THRIVE Score: 0 AUDIT C Alcohol Use Questionnaire (AUDIT-C) 1. How often do you have a drink containing alcohol?: Never 3. How often do you have six or more drinks on one occasion?: Never Total Score: 0 LILLIE-7 AMB Questionnaire LILLIE-7 Date LILLIE - 7 assessed: 09/16/24 Feeling nervous, anxious, or on edge: 0 = Not at all Not being able to stop or control worryin = Not at all Worrying too much about different things: 0 = Not at all Trouble relaxin = Not at all Being so restless that it is hard to sit still: 0 = Not at all Becoming easily annoyed or irritable: 0 = Not at all Feeling afraid as if something awful might happen: 0 = Not at all Total LILLIE-7 score (0-4 normal; 5-9 mild; 10-14 moderate; 15-21 severe): 0 Source: Developed by Drs. Romero Patel, Christa Connor, Marvin Hardin and colleagues, with an educational khushbu from [employer]. Physical exam (Primary Care) Vital Signs: Last Vital Signs Temp 97.4 F 09/16/24 09:44 Pulse 57 09/16/24 09:44 BP 124/72 09/16/24 09:44 Pulse Ox 99 09/16/24 09:44 Oxygen Delivery Method Room Air 09/16/24 09:44 Care Plan Goal for BP management: BP is in range BMI result Body Mass Index 27.3 Tobacco/Smoking Status: Tobacco use Status Tobacco use date assessed 09/16/24 09/16/24 09:33 Patient Tobacco Use Status Former Tobacco user 09/16/24 09:51 e-Cigarette/Vaping Use Former Use 09/16/24 09:51 PHQ-9: PHQ-9 Score PHQ-9: Total score 0 09/16/24 09:51 Depression Screening Interpretation: Negative Thrive Assessment: Date of Thrive Assessment Date Thrive assessed 09/16/24 09/16/24 09:33 Currently or been in a relationship where the following occur: No concerns reported Advance Care Planning discussion: Exists, not on file Date of discussion: 09/16/24 Who was present: Patient Forms completed: MOLST Time spent: 1-15 minutes, not on file Actual minutes spent: 5 Coding Level of Care Code New Pt Level 4 (74339) Complex EM visit Add On G2211 Diagnoses Diabetes mellitus E11.9 Additional Codes Vital Signs *Quality* - Advance Care Planning discussion: Exists, not on file ([id number]) Vital Signs *Quality* - Time spent: 1-15 minutes, not on file ([id number]) Assessment & Plan Assessment & Plan (1) Diabetes mellitus: Code(s): E11.9 - Type 2 diabetes mellitus without complications Category: Medical Plan: Rpt A1c and blood work ordered. Will adjust medications accordingly. Plan History of Present Illness The patient is a 69-year-old male presenting with wellness visit and management of Type 2 Diabetes Mellitus. He currently manages his condition with Farxiga and Metformin, with effective home monitoring revealing stable glucose levels in the morning range of 120 to 125 mg/dL. He has previously experienced some symptoms consistent with urinary tract infections, likely attributed to the initiation of Farxiga, which have since subsided. The patient's cardiac health is under vigilant surveillance, with a known heart murmur evaluated annually by a well drill operator rotary drill. He maintains an active lifestyle, including working part-time, indicating functional capacity without overt cardiac symptoms. Given a family history of prostate cancer, regular prostate monitoring occurs through blood tests, indicating a proactive approach to managing genetic risk factors. The patient had a colonoscopy in 2013 and is now considering a non-invasive option, the Cologuard test, for colorectal cancer screening. 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 - Denies smoking or alcohol use. - Has one child working at the [employer]. - Engages in physical activity as part of his employment. - Family history includes father's diagnosis of prostate cancer. Review of Systems - General: Reports feeling well, denies significant health concerns. - Endocrine: Reports stable blood glucose levels; denies hypoglycemic or hyperglycemic episodes. - Genitourinary: Reports past urinary tract infection symptoms; denies current symptoms. - Cardiovascular: Denies chest pain, palpitations, or other cardiac symptoms. - Gastrointestinal: Denies new gastrointestinal symptoms since last colonoscopy. Physical Exam General: Cooperative and healthy appearing Nutritional Appearance: Well nourished Orientation/consciousness: Patient oriented x3 Limitations: No limitations Head: Normal to inspection General: Appearance normal, both eyes and all related structures Neck: Normal visual inspection Chest: Normal palpation of entire chest wall Respiratory: Patient instructed to take deep breaths and hold, no issues noted. ormal respiratory effort Neurology: Patient oriented x3, no changes noted. Results - Labs: Pending blood glucose levels. - Tests: Cologuard test ordered for colorectal screening. - Diagnostics: Screening for prostate cancer ongoing through blood work. Plan 1. Type 2 Diabetes Mellitus - Maintain Farxiga and Metformin with routine monitoring. - Re-evaluate post-vacation in three months. 2. Recurrent Urinary Tract Infections - No current action required; educate on preventative measures. 3. Heart Murmur - Continues under well drill operator rotary drill's annual observation with no new interventions necessary. 4. Prostate Screening - Continue regular blood work under the care of the patient's other physician. 5. Hypersomnia Post-Colonoscopy - Proceed with Cologuard testing; follow up after patient completes the test. Discussion Notes During the visit, I reviewed the patient's diabetes management and confirmed he continues with Farxiga and Metformin, reporting stable glucose levels. We discussed previous urinary tract symptoms related to Farxiga, which have resolved. I advised consistent blood glucose monitoring and scheduled follow-up after the patient's upcoming vacation. For colon cancer screening, the patient chose to use Cologuard due to its non-invasive nature, and we went over the instructions. The patient's heart murmur will remain under the care of a well drill operator rotary drill, with no immediate issues noted today. Patient Instructions - Continue taking Farxiga and Metformin as prescribed. - Monitor blood sugar levels regularly; aim for consistency in readings. - Follow preventive measures to avoid urinary tract infections. - Perform Cologuard test as instructed and return samples timely. - Schedule follow-up appointment after return from vacation. Orders: Orders 2 Basic Metabolic Panel Today E11.9 - Type 2 diabetes mellitus without complications Complete Blood Count no Diff Today E11.9 - Type 2 diabetes mellitus without complications Lipid Panel Today E11.9 - Type 2 diabetes mellitus without complications Liver Panel Today E11.9 - Type 2 diabetes mellitus without complications Thyroid Stimulating Hormone Today E11.9 - Type 2 diabetes mellitus without complications UA and rflx microscopic Today E11.9 - Type 2 diabetes mellitus without complications Microalbumin, Random (w Creat) Today E11.9 - Type 2 diabetes mellitus without complications Referrals Cologuard Test Z12.11 - Encounter for screening for malignant neoplasm of colon
[2024-09-16 09:44] VITALS: BP 124/72; PULSE 57; TEMP 36.3; O2SAT 99; BMI 27.3
--- OUTSIDE RECORDS SUMMARY | 2024-09-16 10:59 | XMS_ITS | Encounter Summary ---
Author Organization [facility] Address [address] [facility] [address] [place] [address] Phone Care Team Providers Care Care Services Manager Name Role Phone Vernon Felix MD Primary Care Provider [phone] Encounter Details Date Type Department Care Team (Latest Contact Info) Description 11/11/2023 Office Communication [facility] [address] [facility] [address] [place] [phone] Christian Pearce MD [address] [phone] Type 2 diabetes mellitus with diabetic chronic [...] Visit [facility] [address] [place] [address] Christian Pearce MD [address] [facility] [address] [place] [address] Scheduled Orders Name Type Priority Associated Diagnoses Orde r Schedule Renal function panel Lab Routine Type 2 diabetes mellitus with diabetic chronic kidney disease (HCC) Persistent proteinuria Expected: 12/16/2023, Expires: 12/11/2024 documented as of this encounter Visit Diagnoses Diagnosis Type 2 diabetes mellitus with diabetic chronic kidney disease (HCC)- Primary Persistent proteinuria documented in this encounter Care Teams Care Services Manager Relationship Specialty Start Date End Date Vernon Felix MD [address] [place] [address] [address] [place], [place] PCP - General 05/09/20 documented as of this encounter
--- OUTSIDE RECORDS SUMMARY | 2024-09-16 10:59 | XMS_ITS | Clinical Summary ---
Author Organization [facility] Address [address] [facility] [address] [place] [address] Phone Care Team Providers Care Gate Keeper Name Role Phone Vernon Felix MD Primary Care Provider [phone] Allergies No known active allergies Medications warfarin [...] Visit [facility] [address] [place] [address] Christian Pearce MD [address] [facility] [address] [place] [address] Health Maintenance Due Date Last [...] Insurance Wellcare Medicare Wellcare Medicare Care Teams Gate Keeper Relationship Specialty Start Date End Date Vernon Felix MD [address] [place] [address] [address] [place] PCP - General 05/09/20
== END 2024-09-16 10:10 | disposition home or self-care (01) ==
LOC: HO.HMCHD 09:41
PROVIDERS: PCP Internal Medicine; Visit Provider Internal Medicine
DX: E11.9 Type 2 diabetes mellitus without complications (principal); Z00.00 Encounter for general adult medical examination without abnormal findings

== ENCOUNTER → 2024-09-16 09:41 | Outpatient (BNVA) | payer MEDICARE, MEDICAID, SELFPAY | PROVIDERS: PCP Internal Medicine; Visit Provider Internal Medicine | DX: E11.9 Type 2 diabetes mellitus without complications (principal) | CPT/HCPCS: 99202 ==

== ENCOUNTER 2024-09-18 09:07 | Outpatient (AMB) | payer MEDICARE, MEDICAID, SELFPAY ==
--- OUTSIDE RECORDS SUMMARY | 2024-09-18 09:24 | XMS_ITS | Encounter Summary ---
Author Organization [facility] Address [address] [facility] [address] [place] [address] Phone Care Team Providers Care Textile Screen Maker Name Role Phone Vernon Felix MD Primary Care Provider [phone] Encounter Details Date Type Department Care Team (Latest Contact Info) Description 11/11/2023 Office Communication [facility] [address] [facility] [address] [place] [phone] Christian Pearce MD [address] [phone] Type 2 diabetes mellitus with diabetic chronic [...] Visit [facility] [address] [place] [address] Christian Pearce MD [address] [facility] [address] [place] [address] Scheduled Orders Name Type Priority Associated Diagnoses Orde r Schedule Renal function panel Lab Routine Type 2 diabetes mellitus with diabetic chronic kidney disease (HCC) Persistent proteinuria Expected: 12/16/2023, Expires: 12/11/2024 documented as of this encounter Visit Diagnoses Diagnosis Type 2 diabetes mellitus with diabetic chronic kidney disease (HCC)- Primary Persistent proteinuria documented in this encounter Care Teams Textile Screen Maker Relationship Specialty Start Date End Date Vernon Felix MD [address] [place] [address] [address] [place], [place] PCP - General 05/09/20 documented as of this encounter
[2024-09-18 09:31] LABS: Prothrombin Time Whole Bld POC 29.2 sec (11.1-13.5); ~PT, ~INR - Anti Coag Clinic 2.4 (0.9-1.1)
--- NOTE | 2024-09-18 09:36 | MHC.OFFVISCO ---
Intake Intake Visit Reasons: Anticoagulation Allergies peanut [PEANUT] Adverse Reaction (Intermediate, Verified 09/18/24 09:25) ANGIOEDEMA SEASONAL ALLERGIES Allergy (Mild, Uncoded 09/18/24 09:25) STUFFY NOSE Medication List - Last Reconciled 09/18/24 by Mireya Silver, RN betamethasone dipropionate 0.05% 1 appl topical BID carvedilol 3.125 mg PO BID dapagliflozin propanediol (Farxiga) 10 mg PO DAILY finerenone (Kerendia) mg PO loratadine (Allergy Relief (loratadine)) 10 mg PO DAILY losartan 50 mg PO DAILY metformin ER 500 mg PO DAILY sildenafil 100 mg PO ONCE PRN 30 days simvastatin mg PO tadalafil 10 mg PO DAILY 90 days warfarin mg See Protocol PO Nursing Note INR: 2.4 in therapeutic range Medications and supplements reviewed- pt stopped allergy med No changes in health, diet, or supplements, Denies any signs and symptoms of bleeding or bruising or clotting. Bleeding, bruising, clotting discussed Nutritional guidance given - eat a mix of fruits and vegetables that you enjoy Dose: 6mg x 3 days/ 3mg x 4 days F/U INR: 1 month per pt request due to traveling for a month Patient verbalizes understanding of instructions given Anti-Coag Initial Assessment Social Hx Patient Tobacco Use Status: Former Tobacco user Coding Level of Care Code Est Patient Level 1 Diagnoses Current use of anticoagulant therapy Z79.01 Assessment & Plan Assessment & Plan (1) Current use of anticoagulant therapy: Code(s): Z79.01 - [facility] (current) use of anticoagulants Category: Medical
== END 2024-09-18 09:42 | disposition home or self-care (01) ==
LOC: HO.ACS 09:07
PROVIDERS: PCP Internal Medicine; Visit Provider Internal Medicine Medical Oncology
DX: Z79.01 Long term (current) use of anticoagulants (principal)

== ENCOUNTER → 2024-09-18 09:07 | Outpatient (BNVA) | payer MEDICARE, MEDICAID, SELFPAY | PROVIDERS: PCP Internal Medicine; Visit Provider Internal Medicine Medical Oncology | DX: Z13.89 Encounter for screening for other disorder (principal) ==

== ENCOUNTER 2024-09-18 09:39 | Outpatient (REF) | payer MEDICARE, MEDICAID, SELFPAY ==
[2024-09-18 11:13] LABS: Appearance Urine Clear; Color Urine Yellow; Glucose Urine UA >=1000 mg/dL (Negative); Leukocyte Esterase Urine Negative (Negative); Nitrite Urine Negative (Negative); PH 5.5 (5.0-9.0); Specific Gravity - Urine >= 1.030 (1.005-1.025); UMIC TRIGGER UA YES; Urine Blood Negative (Negative); Urine Ketones Negative (Negative); Urine Protein 100 (2+) mg/dL (Neg-Trace)
[2024-09-18 11:14] LABS: Hemoglobin 17.4 g/dl (14.0-18.0); Mean Corpuscular HGB Conc 34.1 g/dl (31.0-36.0); Mean Corpuscular Hemoglobin 31.1 pg (27.0-33.0); Mean Corpuscular Volume 91.1 fL (80.0-98.0); Mean Platelet Volume 10.4 fL (9.4-12.4); Platelet Count 189 X10*3/uL (160-400); Red Cell Distribution Width 11.8 % (11.0-16.0); White Blood Count 4.9 X10*3/uL (4.8-10.8)
[2024-09-18 11:18] LABS: Bacteria Urine None Seen (None Seen); Hyaline Casts Urine 0-2 /LPF (0-2); RBC Urine 0-2 /HPF (0-2); Squamous Epithelial Cell Urine 0-2 /HPF (0-2); WBC Urine 0-5 /HPF (0-5)
[2024-09-18 11:33] LABS: Alanine Aminotransferase 26 U/L (0-40); Albumin Level 4.7 g/dL (3.5-5.0); Alkaline Phosphatase 56 U/L (39-117); Anion Gap 13 (12-20); Aspartate Amino Transferase 29 U/L (5-37); Bilirubin Direct 0.4 mg/dL (0.0-0.5); Bilirubin Total 1.4 mg/dL (0.0-1.0); Blood Urea Nitrogen 18 mg/dL (9-16); Calcium 9.3 mg/dL (8.4-10.2); Carbon Dioxide 27 mmol/L (22-29); Chloride 104 mmol/L (96-108); Cholesterol 177 mg/dL (<200); Estimated Glomerular Filt Rate > 60; Glucose Random 191 mg/dL (60-115); HDL Cholesterol 48 mg/dL (>40); LDL Cholesterol Calculated 107 mg/dL (<100); Potassium 4.8 mmol/L (3.3-5.1); Sodium 139 mmol/L (135-145); Total Protein 8.5 g/dL (6.5-8.0); Triglycerides 112 mg/dL (<150)
[2024-09-18 11:48] LABS: Thyroid Stimulating Hormone 0.87 uIU/mL (0.32-4.0)
[2024-09-18 12:26] LABS: Creatinine Urine 78.63 mg/dL
[2024-09-18 12:45] LABS: Microalbum/Creatinine Ratio Ur 911.8 ug/mg cr (<30)
== END 2024-09-18 09:40 | disposition home or self-care (01) ==
LOC: HO.10HDL 09:39
PROVIDERS: Visit Provider Internal Medicine
DX: E11.9 Type 2 diabetes mellitus without complications (principal)
CPT/HCPCS: 36415; 80048; 80061; 80076; 81001; 82043; 82570; 84443; 85027; 85610; 99211

== ENCOUNTER 2024-09-29 09:14 | Outpatient (REF) | payer MEDICARE, MEDICAID, SELFPAY ==
--- OUTSIDE RECORDS SUMMARY | 2024-09-29 10:08 | XMS_ITS | Encounter Summary ---
Author Organization [facility] Address [address] [facility] [address] [place] [address] Phone Care Team Providers Care Concrete Hopper Operator Name Role Phone Vernon Felix MD Primary Care Provider [phone] Encounter Details Date Type Department Care Team (Latest Contact Info) Description 11/11/2023 Office Communication [facility] [address] [facility] [address] [place] [phone] Christian Pearce MD [address] [phone] Type 2 diabetes mellitus with diabetic chronic [...] Visit [facility] [address] [place] [address] Christian Pearce MD [address] [facility] [address] [place] [address] Scheduled Orders Name Type Priority Associated Diagnoses Orde r Schedule Renal function panel Lab Routine Type 2 diabetes mellitus with diabetic chronic kidney disease (HCC) Persistent proteinuria Expected: 12/16/2023, Expires: 12/11/2024 documented as of this encounter Visit Diagnoses Diagnosis Type 2 diabetes mellitus with diabetic chronic kidney disease (HCC)- Primary Persistent proteinuria documented in this encounter Care Teams Concrete Hopper Operator Relationship Specialty Start Date End Date Vernon Felix MD [address] [place] [address] [address] [place], [place] PCP - General 05/09/20 documented as of this encounter
[2024-09-29 10:54] LABS: Estimated Average Glucose 203 mg/dL; Hemoglobin A1c % 8.7 % (<6.0)
[2024-09-29 11:16] LABS: Appearance Urine Clear; Color Urine Yellow; Glucose Urine UA >=1000 mg/dL (Negative); Leukocyte Esterase Urine Negative (Negative); Nitrite Urine Negative (Negative); PH 5.5 (5.0-9.0); Specific Gravity - Urine >= 1.030 (1.005-1.025); UMIC TRIGGER UA YES; Urine Blood Negative (Negative); Urine Ketones Negative (Negative); Urine Protein 100 (2+) mg/dL (Neg-Trace)
[2024-09-29 11:22] LABS: Bacteria Urine None Seen (None Seen); Hyaline Casts Urine 0-2 /LPF (0-2); RBC Urine 0-2 /HPF (0-2); Squamous Epithelial Cell Urine 0-2 /HPF (0-2); WBC Urine 0-5 /HPF (0-5)
[2024-09-29 12:07] LABS: PSA,Total (Free>4and<10) 2.05 ng/mL (0.00-4.00)
== END 2024-09-29 09:15 | disposition home or self-care (01) ==
LOC: HO.10HDL 09:14
PROVIDERS: Urology; Visit Provider Internal Medicine
DX: E11.9 Type 2 diabetes mellitus without complications (principal); R97.20 Elevated prostate specific antigen [PSA]; Z12.5 Encounter for screening for malignant neoplasm of prostate
CPT/HCPCS: 36415; 81001; 81003; 83036; 84153

== ENCOUNTER 2024-10-07 08:10 | Outpatient (REF) | payer MEDICARE, MEDICAID, SELFPAY ==
--- OUTSIDE RECORDS SUMMARY | 2024-10-07 08:17 | XMS_ITS | Encounter Summary ---
Author Organization [facility] Address [address] [facility] [address] [place] [address] Phone Care Team Providers Care Senior Qa Tester Name Role Phone Vernon Felix MD Primary Care Provider [phone] Encounter Details Date Type Department Care Team (Latest Contact Info) Description 11/11/2023 Office Communication [facility] [address] [facility] [address] [place] [phone] Christian Pearce MD [address] [facility] [address] [place] [phone] Type 2 diabetes mellitus with diabetic chronic [...] Visit [facility] [address] [place] [phone] Christian Pearce MD [address] [address] Scheduled Orders Name Type Priority Associated Diagnoses Orde r Schedule Renal function panel Lab Routine Type 2 diabetes mellitus with diabetic chronic kidney disease (HCC) Persistent proteinuria Expected: 12/16/2023, Expires: 12/11/2024 documented as of this encounter Visit Diagnoses Diagnosis Type 2 diabetes mellitus with diabetic chronic kidney disease (HCC)- Primary Persistent proteinuria documented in this encounter Care Teams Senior Qa Tester Relationship Specialty Start Date End Date Vernon Felix MD [address] [facility] [address] [place], [place] PCP - General 05/09/20 documented as of this encounter
[2024-10-07 10:37] LABS: Anion Gap 9 (12-20); Blood Urea Nitrogen 18 mg/dL (9-16); Calcium 8.7 mg/dL (8.4-10.2); Carbon Dioxide 27 mmol/L (22-29); Chloride 105 mmol/L (96-108); Estimated Glomerular Filt Rate > 60; Potassium 4.4 mmol/L (3.3-5.1); Sodium 137 mmol/L (135-145)
[2024-10-07 10:49] LABS: Appearance Urine Clear; Color Urine Yellow; Glucose Urine UA >=1000 mg/dL (Negative); Leukocyte Esterase Urine Negative (Negative); Nitrite Urine Negative (Negative); PH 5.5 (5.0-9.0); UMIC TRIGGER UACC YES; Urine Blood Negative (Negative); Urine Ketones Negative (Negative); Urine Protein 30 (1+) mg/dL (Neg-Trace)
[2024-10-07 10:52] LABS: Bacteria Urine None Seen (None Seen); Hyaline Casts Urine 0-2 /LPF (0-2); RBC Urine 0-2 /HPF (0-2); Squamous Epithelial Cell Urine 0-2 /HPF (0-2); WBC Urine 0-5 /HPF (0-5)
[2024-10-07 11:16] LABS: Creatinine Urine 44.89 mg/dL; Microalbum/Creatinine Ratio Ur 543.5 ug/mg cr (<30); Protein/Creatinine Ratio, Ur 0.78 (<0.2); Total Protein Urine Random 35 mg/dL (<12)
== END 2024-10-07 08:11 | disposition home or self-care (01) ==
LOC: HO.10HDL 08:10
PROVIDERS: Visit Provider Internal Medicine Nephrology
DX: E11.21 Type 2 diabetes mellitus with diabetic nephropathy (principal); I15.1 Hypertension secondary to other renal disorders; R80.1 Persistent proteinuria, unspecified
CPT/HCPCS: 36415; 80051; 81001; 82043; 82310; 82565; 82570; 84156; 84520

== ENCOUNTER 2024-11-06 09:02 | Outpatient (AMB) | payer MEDICARE, MEDICAID, SELFPAY ==
[2024-11-06 09:08] LABS: Prothrombin Time Whole Bld POC 25.7 sec (11.1-13.5); ~PT, ~INR - Anti Coag Clinic 2.1 (0.9-1.1)
--- NOTE | 2024-11-06 09:11 | MHC.OFFVISCO ---
Intake Intake Visit Reasons: Anticoagulation Allergies peanut (PEANUT) Adverse Reaction (Intermediate, Verified 11/06/24 09:02) ANGIOEDEMA SEASONAL ALLERGIES Allergy (Mild, Uncoded 11/06/24 09:02) STUFFY NOSE Medication List - Last Reconciled 11/06/24 by Jessica Ken, RN betamethasone dipropionate 0.05% 1 appl topical BID carvedilol 3.125 mg PO BID dapagliflozin propanediol (Farxiga) 10 mg PO DAILY finerenone (Kerendia) mg PO loratadine (Allergy Relief (loratadine)) 10 mg PO DAILY losartan 50 mg PO DAILY metformin ER 500 mg PO DAILY sildenafil 100 mg PO ONCE PRN 30 days simvastatin mg PO tadalafil 10 mg PO DAILY 90 days warfarin mg See Protocol PO Nursing Note INR: 2.1 in therapeutic range of 2-3 Medications and supplements reviewed No changes in health, diet, medications, or supplements, Denies any signs and symptoms of bleeding or bruising or clotting. Bleeding, bruising, clotting discussed Nutritional guidance given to avoid greens today Dose: 3mg X 4 days and 6mg X 3 days (M/W/F) F/U INR: 4 weeks Patient verbalizes understanding of instructions given Anti-Coag Initial Assessment Social Hx Patient Tobacco Use Status: Former Tobacco user Coding Level of Care Code Est Patient Level 1 Diagnoses Current use of anticoagulant therapy Z79.01 Results AMB INR Fingerstick AMB INR Fingerstick 2.1 Last Edit by Jessica Ken RN on 11/06/24 09:08 interface delay Assessment & Plan Assessment & Plan (1) Current use of anticoagulant therapy: Code(s): Z79.01 - oil heaterman (current) use of anticoagulants Category: Medical
--- OUTSIDE RECORDS SUMMARY | 2024-11-06 09:15 | XMS_ITS | Encounter Summary ---
Author Organization [facility] Address [address] [facility] [address] [place] [address] Phone Care Team Providers Care Sleep Technologist Name Role Phone Vernon Felix MD Primary Care Provider [phone] Encounter Details Date Type Department Care Team (Latest Contact Info) Description 11/11/2023 Office Communication [facility] [address] [facility] [address] [place] [phone] Christian Pearce MD [address] [facility] [address] [place] [phone] Type 2 diabetes mellitus with diabetic chronic [...] Care Team (Late st Contact Info) Description 11/08/2025 1:15 PM EDT Office Visit [facility] [address] [place] [phone] Christian Pearce MD [address] [address] Scheduled Orders Name Type Priority Associated Diagnoses Orde r Schedule Renal function panel Lab Routine Type 2 diabetes mellitus with diabetic chronic kidney disease (HCC) Persistent proteinuria Expected: 12/16/2023, Expires: 12/11/2024 documented as of this encounter Visit Diagnoses Diagnosis Type 2 diabetes mellitus with diabetic chronic kidney disease (HCC)- Primary Persistent proteinuria documented in this encounter Care Teams Sleep Technologist Relationship Specialty Start Date End Date Vernon Felix MD [address] [place], [place] PCP - General 05/09/20 documented as of this encounter
--- OUTSIDE RECORDS SUMMARY | 2024-11-06 09:15 | XMS_ITS | Patient Health Record ---
Author Organization [facility] Address [address] [place] [address] Care Team Providers Care Technical Systems Architect Name Role Phone Vernon Felix MD Primary Care Provider Romero Main Unavailable [phone] Lizette QUIJANO, Joseph Unavailable Unavailable Allergies Allergen (clinical drug ingredient) Drug/Non Drug Allergy documented on EMR Reaction Allergy Type Onset Date Status seasonal allergies (uncoded) Unknown Allergy Active Reason For Referral No Information Medications Medication SIG (Take, Route, Frequency, Duration) Notes Start Date End Date Status Aspir-81 81 MG 1 tablet Orally Once a day Active hydroCHLOROthiazide 12.5 MG 1 capsule Or ally Once a day Active Warfarin Sodium 3 MG 1 tablet Orally elvia day Active Lisinopril 5 MG 1 tablet Orally Once a day Active Atenolol 50 MG 1 tablet Orally Once a day Active Colyte w Flavor Packs 240 GM as directed Orally as directed for 1 day(s) 10/13/2013 Active Simvastatin 10 MG 1 tablet in the even ing Orally Once a day Active Problems Problem Type SNOMED Code ICD Code Onset Dates Problem Status W/U Status Risk Notes Problem Colon cancer screening (039446536) Colon cancer screening (V76.51) Active confirmed Problem History of adenomatous polyp of colon (079989703) History of adenomatous polyp of colon (V12.72) Active confirmed Problem Long-term current use of anticoagulant (916224731) Long-term (current) use of anticoagulants (V58.61) Active confirmed Plan Of Treatment Future Test Test Name Order Date COLONOSCOPY 10/13/2013 Insurance Providers Payer Name Payer Address Payer Phone Subscriber Number Group Number Insured Name Patient Relationship to Insured Coverage Start Date Coverage End Date [facility] [address] [place] [address] [id number] GHAZAL FERRER Self - patient is the insured [facility]ID [facility] [address] [place] [address] [id number] GHAZAL FERRER Self - patient is the insured Medical (General) History Medical History History ICD Code colonoscopy 07-13-2008--1 small tubular a denoma removed Mitral valve stenosis--he sees Dr. Lizette Vasquesies [place],DM,CVA,Lung disease,renal dise ase hypertension hypercholesterolemia
== END 2024-11-06 09:12 | disposition home or self-care (01) ==
LOC: HO.ACS 09:02
PROVIDERS: PCP Internal Medicine; Visit Provider Internal Medicine Medical Oncology
DX: Z79.01 Long term (current) use of anticoagulants (principal)

== ENCOUNTER → 2024-11-06 09:02 | Outpatient (BNVA) | payer MEDICARE, MEDICAID, SELFPAY | PROVIDERS: PCP Internal Medicine; Visit Provider Internal Medicine Medical Oncology | DX: I48.20 Chronic atrial fibrillation, unspecified (principal); Z79.01 Long term (current) use of anticoagulants; Z51.81 Encounter for therapeutic drug level monitoring | CPT/HCPCS: 85610; 99211 ==

== ENCOUNTER 2024-12-03 11:09 | Outpatient (AMB) | payer MEDICARE, MEDICAID, SELFPAY ==
--- NOTE | 2024-12-03 11:10 | MHC.OFFVIS ---
Intake Visit Reasons: 6m follow up Intake Note: Patient is Present for 6 MO Follow Up Urology Medication: Tadalafil, Sildenafil,betamethasone Antibiotic Allergies: None Blood Thinners: Warfarin TODAY'S PVR: 48 MLS Metaphysician Required: No Accompanied by: Self / Same As Patient Allergies peanut (PEANUT) Adverse Reaction (Intermediate, Verified 12/03/24 11:24) ANGIOEDEMA SEASONAL ALLERGIES Allergy (Mild, Uncoded 11/06/24 09:02) STUFFY NOSE HPI Comments Details: Fanny is a pleasant Citizen [place] male. He is a patient of Dr. Felix. 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 Symptoms have been present for/since Ongoing. Procedure(s)/Diagnosis causing dysfunction include diabetes. Current treatment includes none. Prior therapies include oral medications - sildenafil on demand. At this time he experiences erections are partial and insufficient for vaginal penetration, that undergo rapid detumesence after penetration, YUDITH 1-7 Severe ED. Nocturnal erections Minimal. Currently they are in a stable relationship. Associated problems hypertension Yes diabetes Yes dyslipidemia Yes Recent labs included 11/15 T 500, 11/18 T 423 1.8 [facility] Medical History Diabetes mellitus Surgical History History of colonoscopy (~01/12/14) Family History Mother No problems noted. Father No problems noted. Social History Housing: House Patient Tobacco Use Status: Former Tobacco user e-Cigarette/Vaping Use: Former Use service: No Current occupational status: employed Cognitive needs: No Hearing needs: No Vision needs: Yes (rx glasses) Review of Systems Const Denies chills and Denies fever(s) Card Reports no additional complaints and Denies syncope Resp Denies cough GI Denies abdominal pain and Denies heartburn Reports as per HPI and Denies change in libido Neuro Denies syncope Psych Denies change in libido Endo Denies change in libido Physical Exam Const General: cooperative, healthy appearing, comfortable and no acute distress Orientation/consciousness: patient oriented x3 HEENT Face and sinus: Yes normal facial exam Mouth: moist mucous membranes Neck Neck: Yes normal visual inspection, Yes full ROM and Yes trachea midline Chest Chest palpation & inspection: normal inspection of the chest Resp Effort & Inspection: normal respiratory effort, able to speak in complete sentences and no respiratory distress GI Inspection: Yes normal to inspection Back/Spine/Pelvis Cervical Spine: normal cervical lordosis Thoracic/Lumbar Spine: thoracic and lumbar spine normal to inspection Skin General skin exam: no rashes or lesions noted Neuro General: patient oriented x3, gait normal, tone normal and moves all extremities Extrem General: Yes normal to inspection and Yes capillary refill normal Assessment & Plan Assessment & Plan (1) Erectile dysfunction associated with type 2 diabetes mellitus: Code(s): E11.69 - Type 2 diabetes mellitus with other specified complication; N52.1 - Erectile dysfunction due to diseases classified elsewhere Category: Medical (2) Elevated PSA: Code(s): R97.20 - Elevated prostate specific antigen [PSA] Category: Medical (3) Nocturia more than twice per night: Code(s): R35.1 - Nocturia Category: Medical Plan Twelve month follow-up PSA Orders: Orders Prostate Specific Antigen 12 Months R97.20 - Elevated prostate specific antigen [PSA] Medications: Refilled tadalafil Daily medication 10 mg PO DAILY 90 tabs 3RF sexual activity 90 days E11.69 - Type 2 diabetes mellitus with other specified complication, N52.1 - Erectile dysfunction due to diseases classified elsewhere sildenafil Take 60 minutes before an tendon activity 100 mg PO ONCE PRN 30 tabs 1RF sexual activity 30 days R97.20 - Elevated prostate specific antigen [PSA] Patient Instructions: This note is constructed using voice recognition software. While every effort has been made to ensure accuracy hand frame surgical elastic knitter errors may have been included. Imaging studies, laboratory and physical exam results were discussed and reviewed in detail. No major barriers to patient understanding were identified. An opportunity to ask questions regarding the treatment plan was provided. All questions were answered. The patient expressed understanding and agreement with the above treatment plan. The patient is aware they should contact our office by phone for worsening of their current condition or the appearance of new urologic symptoms. Compliance is encouraged with any medications and followup testing that is ordered. It is a privilege to participate in the urologic care of your patient. If you have any questions or concerns regarding treatment for the above conditions, or other urologic issues, please do not hesitate to contact me. The office telephone contact is [phone]. Sincerely, Dr Efrem Gamboa MD, [facility] - Urology Compassionate Specialist Care for the Genitourinary System Coding Level of Care Code Est Pt Level 3 (75010) Complex EM visit Add On G2211 Diagnoses Erectile dysfunction associated with type 2 diabetes mellitus E11.69; N52.1 Elevated PSA R97.20 Nocturia more than twice per night R35.1
--- OUTSIDE RECORDS SUMMARY | 2024-12-03 11:47 | XMS_ITS | Patient Health Record ---
Author Organization [facility] Address [address] [place] [address] Care Team Providers Care Operations Tech Name Role Phone Isidro (RETIRED) Vernon QUIJANO Primary Care Provide r Unavailable Romero Jacobs Unavailable [phone] Lizette QUIJANO, Joseph Unavailable Unavailable Allergies Allergen [...] Status Risk Notes Problem Colon cancer screening (052099073) Colon cancer screening (V76.51) Active confirmed Problem History of adenomatous polyp of colon (063310479) History of adenomatous polyp of colon (V12.72) Active confirmed Problem Long-term current use of anticoagulant (699184129) Long-term (current) use of anticoagulants (V58.61) Active confirmed Plan Of Treatment Future Test Test Name Order Date COLONOSCOPY 10/13/2013 Insurance Providers Payer Name Payer Address Payer Phone Subscriber Number Group Number Insured Name Patient Relationship to Insured Coverage Start Date Coverage End Date [facility] [address] [place] [address] [id number] GHAZAL FERRER Self - patient is the insured MEDICAID OF [employer] [address] [place] [phone] [id number] GHAZAL FERRER Self - patient is the insured Medical (General) History Medical History History ICD Code colonoscopy 07-13-2008--1 small tubular a denoma removed Mitral valve stenosis--he sees Dr. Bauer Denies [place],DM,CVA,Lung disease,renal dise ase hypertension hypercholesterolemia
--- OUTSIDE RECORDS SUMMARY | 2024-12-03 11:48 | XMS_ITS | Encounter Summary ---
Author Organization [facility] Address [address] [facility] [address] [place] [address] Phone Care Team Providers Care Optical Store Manager Name Role Phone Vernon Felix MD Primary Care Provider [phone] Encounter Details Date Type Department Care Team (Latest Contact Info) Description 11/11/2023 Office Communication [facility] [address] [facility] [address] [place] [phone] Christian Pearce MD [address] [facility] [address] [place] [phone] Type 2 diabetes mellitus with diabetic chronic [...] Visit [facility] [address] [place] [phone] Christian Pearce MD [address] [address] Scheduled Orders Name Type Priority Associated Diagnoses Orde r Schedule Renal function panel Lab Routine Type 2 diabetes mellitus with diabetic chronic kidney disease (HCC) Persistent proteinuria Expected: 12/16/2023, Expires: 12/11/2024 documented as of this encounter Visit Diagnoses Diagnosis Type 2 diabetes mellitus with diabetic chronic kidney disease (HCC)- Primary Persistent proteinuria documented in this encounter Care Teams Optical Store Manager Relationship Specialty Start Date End Date Vernon Felix MD [address] [facility] [address] [address] [place], [place] PCP - General 05/09/20 documented as of this encounter
== END 2024-12-03 11:57 | disposition home or self-care (01) ==
LOC: HO.HUSH 11:09
PROVIDERS: PCP Internal Medicine; Visit Provider Urology
DX: E11.69 Type 2 diabetes mellitus with other specified complication (principal); N52.1 Erectile dysfunction due to diseases classified elsewhere; R97.20 Elevated prostate specific antigen [PSA]; R35.1 Nocturia; N48.1 Balanitis
CPT/HCPCS: 99213; G2211

== ENCOUNTER → 2024-12-03 11:09 | Outpatient (BNVA) | payer MEDICARE, MEDICAID, SELFPAY | PROVIDERS: PCP Internal Medicine; Visit Provider Urology | DX: E11.69 Type 2 diabetes mellitus with other specified complication (principal); N52.1 Erectile dysfunction due to diseases classified elsewhere; R97.20 Elevated prostate specific antigen [PSA]; R35.1 Nocturia; N48.1 Balanitis; Z79.899 Other long term (current) drug therapy; Z79.01 Long term (current) use of anticoagulants | CPT/HCPCS: 51798; 81003; 99212 ==

== ENCOUNTER 2024-12-04 09:17 | Outpatient (AMB) | payer MEDICARE, MEDICAID, SELFPAY ==
--- OUTSIDE RECORDS SUMMARY | 2024-12-04 09:25 | XMS_ITS | Encounter Summary ---
Author Organization [facility] Address [address] [facility] [address] [place] [address] Phone Care Team Providers Care Honing Machine Operator Semiautomatic Name Role Phone Vernon Felix MD Primary Care Provider [phone] Encounter Details Date Type Department Care Team (Latest Contact Info) Description 11/11/2023 Office Communication [facility] [address] [facility] [address] [place] [phone] Christian Pearce MD [address] [facility] [address] [place] [phone] Type 2 diabetes mellitus with diabetic chronic [...] Visit [facility] [address] [place] [phone] Christian Pearce MD [address] [address] Scheduled Orders Name Type Priority Associated Diagnoses Orde r Schedule Renal function panel Lab Routine Type 2 diabetes mellitus with diabetic chronic kidney disease (HCC) Persistent proteinuria Expected: 12/16/2023, Expires: 12/11/2024 documented as of this encounter Visit Diagnoses Diagnosis Type 2 diabetes mellitus with diabetic chronic kidney disease (HCC)- Primary Persistent proteinuria documented in this encounter Care Teams Honing Machine Operator Semiautomatic Relationship Specialty Start Date End Date Vernon Felix MD [address] [place], [place] PCP - General 05/09/20 documented as of this encounter
--- OUTSIDE RECORDS SUMMARY | 2024-12-04 09:25 | XMS_ITS | Patient Health Record ---
Author Organization [facility] Address [address] [place] [address] Care Team Providers Care C Winforms Developer Name Role Phone Isidro (RETIRED) Vernon QUIJANO Primary Care Provide r Unavailable Romero Jacobs Unavailable [phone] Lizette QUIJANO, Joseph Unavailable Unavailable Allergies Allergen [...] Status Risk Notes Problem Colon cancer screening (420778741) Colon cancer screening (V76.51) Active confirmed Problem History of adenomatous polyp of colon (500447230) History of adenomatous polyp of colon (V12.72) Active confirmed Problem Long-term (current) use of anticoagulants (V58.61) Active confirmed Plan Of Treatment Future Test Test Name Order Date COLONOSCOPY 10/13/2013 Insurance Providers Payer Name Payer Address Payer Phone Subscriber Number Group Number Insured Name Patient Relationship to Insured Coverage Start Date Coverage End Date [facility] [address] [place] [address] [id number] DAVIDKRUPA GUTIERREZ GHAZAL Self - patient is the insured MEDICAID OF [facility] [address] [place] [address] [id number] DAVIDKRUPA MATT DAINAELDON Self - patient is the insured Medical (General) History Medical History History ICD Code colonoscopy 07-13-2008--1 small tubular a denoma removed Mitral valve stenosis--he sees Dr. Lizette Vasquesies [place],DM,CVA,Lung disease,renal dise ase hypertension hypercholesterolemia
--- NOTE | 2024-12-04 09:34 | MHC.OFFVISCO ---
Intake Intake Visit Reasons: Anticoagulation Allergies peanut (PEANUT) Adverse Reaction (Intermediate, Verified 12/04/24 09:27) ANGIOEDEMA SEASONAL ALLERGIES Allergy (Mild, Uncoded 12/04/24 09:27) STUFFY NOSE Medication List - Last Reconciled 12/04/24 by Jessica Ken, RN carvedilol 3.125 mg PO BID dapagliflozin propanediol (Farxiga) 10 mg PO DAILY finerenone (Kerendia) mg PO losartan 50 mg PO DAILY sildenafil 100 mg PO ONCE PRN 30 days simvastatin mg PO tadalafil 10 mg PO DAILY 90 days warfarin 3 mg See Protocol PO DAILY Nursing Note INR: 2.6 in therapeutic range of 2-3 Medications and supplements reviewed No changes in health, diet, medications, or supplements, Denies any signs and symptoms of bleeding or bruising or clotting. Bleeding, bruising, clotting discussed Nutritional guidance given Dose: 3mg X 4 days and 6mg X 3 days (M/W/F) F/U INR: 4 weeks Patient verbalizes understanding of instructions given Anti-Coag Initial Assessment Social Hx Patient Tobacco Use Status: Former Tobacco user Coding Level of Care Code Est Patient Level 1 Diagnoses Current use of anticoagulant therapy Z79.01 Results AMB INR Fingerstick AMB INR Fingerstick 2.6 Last Edit by Jessica Ken RN on 12/04/24 09:33 interface delay Assessment & Plan Assessment & Plan (1) Current use of anticoagulant therapy: Code(s): Z79.01 - [facility] (current) use of anticoagulants Category: Medical
[2024-12-04 09:48] LABS: Prothrombin Time Whole Bld POC 30.7 sec (11.1-13.5); ~PT, ~INR - Anti Coag Clinic 2.6 (0.9-1.1)
== END 2024-12-04 09:39 | disposition home or self-care (01) ==
LOC: HO.ACS 09:17
PROVIDERS: PCP Internal Medicine; Visit Provider Internal Medicine Medical Oncology
DX: Z79.01 Long term (current) use of anticoagulants (principal)

== ENCOUNTER → 2024-12-04 09:17 | Outpatient (BNVA) | payer MEDICARE, MEDICAID, SELFPAY | PROVIDERS: PCP Internal Medicine; Visit Provider Internal Medicine Medical Oncology | DX: Z51.81 Encounter for therapeutic drug level monitoring (principal); Z79.01 Long term (current) use of anticoagulants | CPT/HCPCS: 85610; 99211 ==

== ENCOUNTER 2024-12-16 09:20 | Outpatient (AMB) | payer MEDICARE, MEDICAID, SELFPAY ==
--- NOTE | 2024-12-16 09:20 | A.OFFPC_ITS ---
Vital Signs 12/16/24 09:24 12/16/24 09:27 Weight 82.554 kg BP 138/66 Blood Pressure Location Rt brachial Position Sitting Respiration 16 Pulse 61 Pulse Source Pulse Oximeter Pulse Oximetry (%) 98 Oxygen Delivery Method Room Air Intake Visit Reasons: 3 Month F/U Fisher Swordfish Required: No Accompanied by: Self / Same As Patient Allergies peanut (PEANUT) Adverse Reaction (Intermediate, Verified 12/16/24 09:20) ANGIOEDEMA SEASONAL ALLERGIES Allergy (Mild, Uncoded 12/04/24 09:27) STUFFY NOSE Tobacco use date assessed: 09/16/24 Dental Screening Dental Screen Date: 09/16/24 HPI HPI Comments History of Present Illness Details 69-year-old male with history of hyperli pidemia, hypertension, type 2 diabetes, atrial fibrillation, SP mitral valve repair on Coumadin, CKD presents to the office today for follow-up. Type 2 diabetes-compliant with Farxiga, metformin, Kerendia. Compliant with diabetic diet. Checking his fasting sugars which are normal Hypertension-, light with losartan 50 mg, carvedilol 3.125 mg twice daily AFib/mitral valve repair-following with [facility]. On warfarin and follow with [facility] Clinic. Rate controlled with carvedilol Hyperlipidemia-on simvastatin Concerns: None ROS: General: No fevers, malaise, unintentional weight loss HEENT: No blurred vision, diplopia. No sore throat, nasal congestion, rhinorrhea, sinus pain, ear pain Cardiovascular: No chest pain, palpitations, or leg edema Respiratory: No shortness of breath, wheezing, cough GI: No abdominal pain, nausea, vomiting, diarrhea, constipation, melena, hematochezia : No dysuria, hematuria, increased urinary frequency, decreased urinary output MSK: No myalgia, back pain Neuro: No headaches, weakness, paresthesias Skin: No rashes or lesions EXAM: Constitutional - Awake and Alert, No apparent distress Eyes - PERRL Cardiovascular - S1S2, RRR, No edema Respiratory - Normal lung expansion, Normal respiratory effort, No respiratory distress, CTA bilaterally Extremities - no calf tenderness bilaterally, no swelling Skin - Warm/Dry Neurological - Alert & oriented x3 Psychological - Appropriate affect [facility] Medical History (Updated 12/18/24 @ 20:20 by ELIZABETH Blanchard) Atrial fibrillation HLD (hyperlipidemia) HTN (hypertension) Diabetes mellitus Surgical History (Updated 12/18/24 @ 20:20 by ELIZABETH Blanchard) S/P mitral valve replacement History of colonoscopy (~01/12/14) Family History Mother No problems noted. Father No problems noted. Social History Housing: House Patient Tobacco Use Status: Former Tobacco user e-Cigarette/Vaping Use: Former Use service: No Current occupational status: employed Cognitive needs: No Hearing needs: No Vision needs: Yes (rx glasses) Questionnaire Thrive Questionnaire Date Thrive assessed: 09/16/24 AUDIT C Alcohol Use Questionnaire (AUDIT-C) 1. How often do you have a drink containing alcohol?: Never Total Score: 0 LILLIE-7 AMB Questionnaire LILLIE-7 Date LILLIE - 7 assessed: 09/16/24 Source: Developed by Drs. Romero Patel, Christa Connor, Marvin Hardin and colleagues, with an educational khushbu from [employer]. Physical exam (Primary Care) Vital Signs: Last Vital Signs Pulse 61 12/16/24 09:27 Resp 16 12/16/24 09:27 BP 138/66 12/16/24 09:27 Pulse Ox 98 12/16/24 09:27 Oxygen Delivery Method Room Air 12/16/24 09:27 Tobacco/Smoking Status: Tobacco use Status Tobacco use date assessed 09/16/24 12/16/24 09:21 Patient Tobacco Use Status Former Tobacco user 12/16/24 09:21 e-Cigarette/Vaping Use Former Use 12/16/24 09:21 Thrive Assessment: Date of Thrive Assessment Date Thrive assessed 09/16/24 12/16/24 09:21 Coding Level of Care Code Est Pt Level 4 (60176) Complex EM visit Add On G2211 Diagnoses Atrial fibrillation I48.91 HTN (hypertension) I10 Diabetes mellitus E11.9 Assessment & Plan Assessment & Plan (1) Atrial fibrillation: Code(s): I48.91 - Unspecified atrial fibrillation Category: Medical Plan: Rate controlled. Continue Coumadin, last INR therapeutic. Follow with the [facility]. Continue following with Cardiology and take carvedilol (2) HTN (hypertension): Code(s): I10 - Essential (primary) hypertension Category: Medical Plan: Controlled. Continue current therapies (3) Diabetes mellitus: Code(s): E11.9 - Type 2 diabetes mellitus without complications Category: Medical Plan: Hemoglobin A1c ordered. Continue current therapies. Diabetic diet Plan Follow-up in the office 3 months, labs to be completed today as well as prior to visit. Orders: Orders Hemoglobin A1c 12/16/24 E11.9 - Type 2 diabetes mellitus without complications Basic Metabolic Panel 3 Months E11.9 - Type 2 diabetes mellitus without complications, E78.5 - Hyperlipidemia, unspecified, I10 - Essential (primary) hypertension, Z79.01 - terminal clerk (current) use of anticoagulants Hemoglobin A1c 3 Months E11.9 - Type 2 diabetes mellitus without complications, E78.5 - Hyperlipidemia, unspecified, I10 - Essential (primary) hypertension, Z79.01 - long-term (current) use of anticoagulants Lipid Panel 3 Months E11.9 - Type 2 diabetes mellitus without complications, E78.5 - Hyperlipidemia, unspecified, I10 - Essential (primary) hypertension, Z79.01 - long-term (current) use of anticoagulants Complete Blood Count Auto Diff 3 Months Z79.01 - long-term (current) use of anticoagulants
[2024-12-16 09:27] VITALS: BP 138/66; PULSE 61; RESP 16; O2SAT 98
--- OUTSIDE RECORDS SUMMARY | 2024-12-16 10:02 | XMS_ITS | Patient Health Record ---
Author Organization [facility] Address [address] [place] [address] Care Team Providers Care Traction Power Engineer Name Role Phone Isidro (RETIRED) Vernon QUIJANO Primary Care Provide r Unavailable Romero Jacobs Unavailable [phone] Lizette QUIJANO, Joseph Unavailable Unavailable Allergies Allergen [...] Status Risk Notes Problem Colon cancer screening (962580921) Colon cancer screening (V76.51) Active confirmed Problem History of adenomatous polyp of colon (835010267) History of adenomatous polyp of colon (V12.72) Active confirmed Problem Long-term current use of anticoagulant (910292045) Long-term (current) use of anticoagulants (V58.61) Active confirmed Plan Of Treatment Future Test Test Name Order Date COLONOSCOPY 10/13/2013 Insurance Providers Payer Name Payer Address Payer Phone Subscriber Number Group Number Insured Name Patient Relationship to Insured Coverage Start Date Coverage End Date [facility] [address] [place] [address] [id number] GHAZAL FERRER Self - patient is the insured MEDICAID OF [employer] [address] [place] [address] [id number] GHAZAL FERRER Self - patient is the insured Medical (General) History Medical History History ICD Code colonoscopy 07-13-2008--1 small tubular a denoma removed Mitral valve stenosis--he sees Dr. Bauer Denies [place],DM,CVA,Lung disease,renal dise ase hypertension hypercholesterolemia
--- OUTSIDE RECORDS SUMMARY | 2024-12-16 10:02 | XMS_ITS | Encounter Summary ---
Author Organization [facility] Address [address] [facility] [address] [place] [address] Phone Care Team Providers Care Help Desk Associate Name Role Phone Vernon Felix MD Primary Care Provider [phone] Encounter Details Date Type Department Care Team (Latest Contact Info) Description 11/11/2023 Office Communication [facility] [address] [facility] [address] [place] [phone] Christian Pearce MD [address] [facility] [address] [place] [phone] Type 2 diabetes mellitus with diabetic chronic [...] Visit [facility] [address] [place] [address] [place] [phone] Christian Pearce MD [address] [address] Scheduled Orders Name Type Priority Associated Diagnoses Orde r Schedule Renal function panel Lab Routine Type 2 diabetes mellitus with diabetic chronic kidney disease (HCC) Persistent proteinuria Expected: 12/16/2023, Expires: 12/11/2024 documented as of this encounter Visit Diagnoses Diagnosis Type 2 diabetes mellitus with diabetic chronic kidney disease (HCC)- Primary Persistent proteinuria documented in this encounter Care Teams Help Desk Associate Relationship Specialty Start Date End Date Vernon Felix MD [address] [place], [place] PCP - General 05/09/20 documented as of this encounter
== END 2024-12-16 09:50 | disposition home or self-care (01) ==
LOC: HO.HMCHD 09:21
PROVIDERS: PCP Internal Medicine; Visit Provider Physician Assistant
DX: I48.91 Unspecified atrial fibrillation (principal); I10 Essential (primary) hypertension; E11.9 Type 2 diabetes mellitus without complications

== ENCOUNTER → 2024-12-16 09:20 | Outpatient (BNVA) | payer MEDICARE, MEDICAID, SELFPAY | PROVIDERS: PCP Internal Medicine; Visit Provider Physician Assistant | DX: I48.91 Unspecified atrial fibrillation (principal); I12.9 Hypertensive chronic kidney disease with stage 1 through stage 4 chronic kidney disease, or unspecified chronic kidney disease; E11.22 Type 2 diabetes mellitus with diabetic chronic kidney disease; N18.9 Chronic kidney disease, unspecified; E78.5 Hyperlipidemia, unspecified; Z79.01 Long term (current) use of anticoagulants; Z79.84 Long term (current) use of oral hypoglycemic drugs; Z79.899 Other long term (current) drug therapy | CPT/HCPCS: 99212 ==

== ENCOUNTER 2024-12-16 10:13 | Outpatient (REF) | payer MEDICARE, MEDICAID, SELFPAY ==
[2024-12-16 11:28] LABS: Hemoglobin A1C 287.1459 umol/L; Total Hemoglobin (HGBA1C) 4138.8667 umol/L
== END 2024-12-16 10:14 | disposition home or self-care (01) ==
LOC: HO.10HDL 10:13
PROVIDERS: Visit Provider Physician Assistant
DX: E11.9 Type 2 diabetes mellitus without complications (principal)
CPT/HCPCS: 36415; 83036

== ENCOUNTER 2025-01-01 09:03 | Outpatient (AMB) | payer MEDICARE, MEDICAID, SELFPAY ==
[2025-01-01 09:08] LABS: Prothrombin Time Whole Bld POC 28.0 sec (11.1-13.5); ~PT, ~INR - Anti Coag Clinic 2.3 (0.9-1.1)
--- NOTE | 2025-01-01 09:09 | MHC.OFFVISCO ---
Intake Intake Visit Reasons: Anticoagulation Allergies peanut (PEANUT) Adverse Reaction (Intermediate, Verified 01/01/25 09:03) ANGIOEDEMA SEASONAL ALLERGIES Allergy (Mild, Uncoded 01/01/25 09:03) STUFFY NOSE Medication List - Last Reconciled 01/01/25 by Jessica Ken, RN carvedilol 3.125 mg PO BID dapagliflozin propanediol (Farxiga) 10 mg PO DAILY finerenone (Kerendia) mg PO losartan 50 mg PO DAILY metformin 500 mg PO BIDWMEAL sildenafil 100 mg PO ONCE PRN 30 days simvastatin mg PO tadalafil 10 mg PO DAILY 90 days warfarin See Protocol 3mg tab 1-2 tabs daily orally per INR per Anticoag 60 tabs / hlfdy=100 tabs for 3 months Nursing Note INR: 2.3 in therapeutic range of 2-3 Medications and supplements reviewed No changes in health, diet, medications, or supplements, Denies any signs and symptoms of bleeding or bruising or clotting. Bleeding, bruising, clotting discussed Nutritional guidance given Dose: 3mg X 4 days and 6mg X 3 days F/U INR: 4 weeks Patient verbalizes understanding of instructions given Anti-Coag Initial Assessment Social Hx Patient Tobacco Use Status: Former Tobacco user Coding Level of Care Code Est Patient Level 1 Diagnoses Current use of anticoagulant therapy Z79.01 Results AMB INR Fingerstick AMB INR Fingerstick 2.3 Last Edit by Jessica Ken, RN on 01/01/25 09:09 interface delay Assessment & Plan Assessment & Plan (1) Current use of anticoagulant therapy: Code(s): Z79.01 - jail (current) use of anticoagulants Category: Medical
--- OUTSIDE RECORDS SUMMARY | 2025-01-01 09:49 | XMS_ITS | Encounter Summary ---
Author Organization [facility] Address [address] [facility] [address] [place] [address] Phone Care Team Providers Care Soaker Hides Name Role Phone Vernon Felix MD Primary Care Provider [phone] Encounter Details Date Type Department Care Team (Latest Contact Info) Description 11/11/2023 Office Communication [facility] [address] [facility] [address] [place] [phone] Christian Pearce MD [address] [facility] [address] [place] [phone] Type 2 diabetes mellitus with diabetic chronic [...] Visit [facility] [address] [place] [address] [place] [phone] Christian Pearce MD [address] [address] Scheduled Orders Name Type Priority Associated Diagnoses Orde r Schedule Renal function panel Lab Routine Type 2 diabetes mellitus with diabetic chronic kidney disease (HCC) Persistent proteinuria Expected: 12/16/2023, Expires: 12/11/2024 documented as of this encounter Visit Diagnoses Diagnosis Type 2 diabetes mellitus with diabetic chronic kidney disease (HCC)- Primary Persistent proteinuria documented in this encounter Care Teams Soaker Hides Relationship Specialty Start Date End Date Vernon Felix MD [address] [facility] [place], [place] PCP - General 05/09/20 documented as of this encounter
--- OUTSIDE RECORDS SUMMARY | 2025-01-01 09:49 | XMS_ITS | Patient Health Record ---
Author Organization [facility] Address [address] [place] [address] Care Team Providers Care Painter Name Role Phone Isidro (RETIRED) Vernon QUIJANO Primary Care Provide r Unavailable Romero Jacobs Unavailable [phone] Lizette QUIJANO, Joseph Unavailable Unavailable Allergies Allergen [...] Status Risk Notes Problem Colon cancer screening (107553935) Colon cancer screening (V76.51) Active confirmed Problem History of adenomatous polyp of colon (831642896) History of adenomatous polyp of colon (V12.72) Active confirmed Problem Long-term current use of anticoagulant (379995440) Long-term (current) use of anticoagulants (V58.61) Active confirmed Plan Of Treatment Future Test Test Name Order Date COLONOSCOPY 10/13/2013 Insurance Providers Payer Name Payer Address Payer Phone Subscriber Number Group Number Insured Name Patient Relationship to Insured Coverage Start Date Coverage End Date [facility] [address] [place] [address] [phone] [id number] GHAZAL FERRER Self - patient is the insured MEDICAID OF [employer] [address] [place] [address] [id number] GHAZAL FERRER Self - patient is the insured Medical (General) History Medical History History ICD Code colonoscopy 07-13-2008--1 small tubular a denoma removed Mitral valve stenosis--he sees Dr. Bauer Denies [place],DM,CVA,Lung disease,renal dise ase hypertension hypercholesterolemia
--- OUTSIDE RECORDS SUMMARY | 2025-01-01 09:49 | XMS_ITS | Clinical Summary ---
Author Organization [facility] Address [address] [facility] [address] Phone Care Team Providers Care Composition Worker Name Role Phone Vernon Felix MD Primary Care Provider [phone] Allergies No known active allergies Medications warfarin (COUMADIN) 2.5 mg split tablet 3 mg 3 mg Acti ve simvastatin (ZOCOR) 10 MG tablet Take 10 mg by mouth every night Active Canagliflozin (Invokana) 300 MG tablet Take by mouth Active sildenafil (VIAGRA) 100 MG tablet TAKE ONE TABLET BY MOUTH EVERY DAY 60 MINUTES BEFORE INTENDED ACTIVITY NEEDED 3 Active Finerenone (Kerendia) 10 MG tablet Take 1 tablet by mouth 1 (one) time each day 60 tablet 3 5 05/22/19 26 Active losartan (COZAAR) 25 MG tablet TAKE TWO TABLETS BY MOUTH EVERY DAY 180 tablet 3 5 Active Dapagliflozin Propanediol 10 MG tablet Take 10 mg by mouth 1 (one) time each day in the morning 90 tablet 5 02/01/20 25 Active metFORMIN (GLUCOPHAGE) 500 MG tablet Take 1 tablet (500 mg total) by mouth in the morning and 1 tablet (500 mg total) in the evening. 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 0 07/04/2020 Proteinuria 07/04/2020 Type 2 diabetes mellitus with diabetic nephropat hy 07/04/2020 Encounters Date Type Department Care Team Description 12/18/2024 Refill [facility] [address] [place] [address] Ken Shaikh 11/02/2024 2:30 PM EDT Office Visit [facility] [address] [place] [address] Christian Pearce MD Chronic kidney disease, stage 2 (mild) (Primary Dx); Type 2 diabetes mellitus with diabetic nephropathy (HCC); Persistent proteinuria 10/29/2024 Refill [facility] [address] [place] [phone] Christian Pearce MD 10/07/2024 Orders Only [facility] [address] [address] Christian Pearce MD from Last 3 Months Family History Medical [...] Sign Reading Time Taken Comments Blood Pressure 128/66 11/02/2024 2:15 PM EDT Pulse 73 11/02/2024 2:15 PM EDT Temperature - - Respiratory Rate - - Oxygen Saturation 97% 11/02/2024 2:15 PM EDT Inhaled Oxygen Concentration - - Weight 84.5 kg (186 lb 3.2 oz) 11/02/2024 2:15 P M EDT Height - - Body Mass Index - - Plan of Treatment Upcoming Encounters Date Type Department Care Team (Late st Contact Info) Description 11/08/2025 1:15 PM EDT Office Visit [facility] [address] [place] [address] Christian Pearce MD [address] [facility] [address] [place] [phone] Health Maintenance Due Date Last Done Comments Pneumococcal Vaccine: 50+ Years (1 of 2 - PCV) 1976 Colorectal Cancer Screening: Annual FOBT 2006 Colorectal Cancer Screening: Colonoscopy 2006 Colorectal Cancer Screening: Sigmoidoscopy 2006 Diabetes: Ophthalmology Exam 07/04/2020 Diabetes: Pedal Pulse Checked 07/04/2020 Diabetes: Sensory Foot Exam 07/04/2020 Diabetes: Visual Foot Exam 07/04/2020 Diabetes: Hemoglobin A1C 09/16/2022 023, 06/02/2019 Influenza Vaccine (#1) 2024 Hepatitis B Vaccine Aged Out No longe r eligible based on patient's age to complete this topic Procedures Procedure Name Priority Date/Time Associated Diagnosis Comments PROTEIN / CREATININE RATIO, URINE Routine 10/07/2024 10:26 AM EDT ALBUMIN, URINE, RANDOM Routine 10/07/2024 10:26 AM EDT URINALYSIS MICROSCOPIC W/REFLEX TO CULTURE Routine 10/07/2024 10:26 AM EDT CALCIUM Routine 10/07/2024 10:04 AM EDT CREATININE, BLOOD Routine 10/07/2024 10: 04 AM EDT BUN Routine 10/07/2024 10:04 AM EDT ELECTROLYTE PANEL Routine 10/07/2024 10: 04 AM EDT EXT RESULT ENTRY Routine 06/19/2022 from Last 3 Months or Most Recently Relevant to Health Maintenance Results * (ABNORMAL) Urinalysis Microscopic w/Reflx to Culture (10/07/2024 10:26 AM EDT) Color Urine Yellow See orde r comments Appearance Urine Clear See order comments pH Urine 5.5 5.0 - 9.0 See order comments Glucose Urine >=1000(A) Negative mg/dL See order comments Blood, Urine Negative Negative See ord er comments Specific [place] Urine 1.020 1.005 - 1.025 See order comments Protein Urine 30 (1+)(A) Neg-Trace mg/dL See order comments Ketones, Urine Negative Negative mg/dL See order comments Nitrite, Urine Negative Negative See o rder comments Leukocyte Esterase Urine Negative Negative See order comments RBC, Urine 0-2 0 - 2 /HPF See orde r comments WBC 0-5 0 - 5 /HPF See order comments Squamous Epithelial, Urine 0-2 0 - 2 /HPF See order comments Bacteria, Urine None Seen None Seen See order comments Hyaline Casts, Urine 0-2 0 - 2 /LPF See order comments 10/07/2024 10:2 6 AM EDT 10/07/2024 10:26 AM EDT Narrative RICKY - 10/07/2024 10:57 AM EDT [id number] Urine, Clean Catch Christian Pearce MD LAB URINE ORDERABLES Final Re sul Performing Organization Address [facility] Co de Phone Number [place] See order comments [place] [address] * (ABNORMAL) Protein, Total, Random Urine w/Creatinine (Protein/Creat Ratio) (10/07/2024 10:26 AM EDT) Protein Urine Random 35(H) <12 mg/dL See order comments Protein/Creati nine Ratio, Urine 0.78(H) <0.2 See order comments Comment: The spot urine protein:creatinine ratio may increase to 0.3 during normal . 10/07/2024 10:2 6 AM EDT 10/07/2024 10:26 AM EDT Christian Pearce MD LAB URINE ORDERABLES Final Re sult Performing Organization Address [facility] Co de Phone Number [place] See order comments [place] [address] * (ABNORMAL) Albumin, urine, random (10/07/2024 10:26 AM EDT) Creatinine, Urine 44.89 mg/dL Se e order comments Urine Microalbumin 244.0 mg/L See order comments Microalbumin/Crea tinine Ratio 543.5(H) <30 ug/mg cr See order comments Comment: Albumin/Creatinine Ratio Reference Ranges: Normal: < 30 ug/mg creatinine Microalbuminuria: 30 - 300 ug/mg creatinine Clinical Albuminuria: > 300 ug/mg creatinine 10/07/2024 10:2 6 AM EDT 10/07/2024 10:26 AM EDT us Christian Pearce MD LAB URINE ORDERABLES Final Re sult Performing Organization Address [facility] de Phone Number [place] See order comments [place] [address] * Creatinine (10/07/2024 10:04 AM EDT) Creatinine Serum 0.82 0.5 - 1.4 mg/dL See order comments eGFR (Calc) >60 See orde r comments Comment: Chronic Kidney Disease: Estimated GFR < 60 mL/min/1.73m2 Severe Kidney Disease: Estimated GFR < 15 mL/min/1.73m2 10/07/2024 10:0 4 AM EDT 10/07/2024 10:04 AM EDT us Christian Pearce MD LAB BLOOD ORDERABLES Final Re sult Performing Organization Address [facility] Co de Phone Number [place] See order comments [place] [address] * (ABNORMAL) BUN (10/07/2024 10:04 AM EDT) BUN 18(H) 9 - 16 mg/dL See order comments 10/07/2024 10:0 4 AM EDT 10/07/2024 10:04 AM EDT us Christian Pearce MD LAB BLOOD ORDERABLES Final Re sult Performing Organization Address [facility] Co de Phone Number [place] See order comments [place] [address] * Calcium (10/07/2024 10:04 AM EDT) [facility] Calcium 8.7 8.4 - 10.2 mg/dL See order comments 10/07/2024 10:0 4 AM EDT 10/07/2024 10:04 AM EDT Christian Pearce MD LAB BLOOD ORDERABLES Final Re sult Performing Organization Address [facility] Co de Phone Number [place] See order comments [place] [address] * (ABNORMAL) Electrolyte panel (10/07/2024 10:04 AM EDT) [facility] Sodium 137 135 - 145 mmol/L See order comments Potassium 4.4 3.3 - 5.1 mmol/L See order comments Chloride 105 96 - 108 mmol/L See order comments Bicarbonate (CO2) 27 22 - 29 mmol/L See order comments Anion Gap 9(L) 12 - 20 See order comments 10/07/2024 10:0 4 AM EDT 10/07/2024 10:04 AM EDT us Christian Pearce MD LAB BLOOD ORDERABLES Final Re [facility] Performing Organization Address [facility] de Phone Number [place] See order comments [place] [address] * (ABNORMAL) EXT RESULT ENTRY (06/19/2022) [facility] WBC 4.6 3.3 - 10.0 10*3/ML Red [...] Hemoglobin A1C 7.4(A) 4.0 - 6.0 06/19/2022 us Historical Provider LAB BLOOD ORDERABLES Ania l Result from Last 3 Months or Most Recently Relevant to Health Maintenance Insurance [place] Care Teams Composition Worker Relationship Specialty Start Date End Date Vernon Felix MD [address] [place] PCP - General 05/09/20
== END 2025-01-01 09:15 | disposition home or self-care (01) ==
LOC: HO.ACS 09:03
PROVIDERS: PCP Internal Medicine; Visit Provider Internal Medicine Medical Oncology
DX: Z79.01 Long term (current) use of anticoagulants (principal)

== ENCOUNTER → 2025-01-01 09:03 | Outpatient (BNVA) | payer MEDICARE, MEDICAID, SELFPAY | PROVIDERS: PCP Internal Medicine; Visit Provider Internal Medicine Medical Oncology | DX: Z51.81 Encounter for therapeutic drug level monitoring (principal); Z79.01 Long term (current) use of anticoagulants | CPT/HCPCS: 85610; 99211 ==

== ENCOUNTER 2025-02-05 08:56 | Outpatient (AMB) | payer MEDICARE, MEDICAID, SELFPAY ==
[2025-02-05 09:04] LABS: Prothrombin Time Whole Bld POC 33.6 sec (11.1-13.5); ~PT, ~INR - Anti Coag Clinic 2.8 (0.9-1.1)
--- NOTE | 2025-02-05 09:10 | MHC.OFFVISCO ---
Intake Intake Visit Reasons: Anticoagulation Allergies peanut (PEANUT) Adverse Reaction (Intermediate, Verified 02/05/25 08:58) ANGIOEDEMA SEASONAL ALLERGIES Allergy (Mild, Uncoded 01/01/25 09:03) STUFFY NOSE Medication List - Last Reconciled 02/05/25 by Rhoda Enrique, RN carvedilol 3.125 mg PO BID cetirizine (Allergy Relief (cetirizine)) 10 mg PO DAILY PRN dapagliflozin propanediol (Farxiga) 10 mg PO DAILY finerenone (Kerendia) mg PO losartan 50 mg PO DAILY metformin 500 mg PO BIDWMEAL sildenafil 100 mg PO ONCE PRN 30 days simvastatin mg PO tadalafil 10 mg PO DAILY 90 days warfarin See Protocol 3mg tab 1-2 tabs daily orally per INR per Anticoag 60 tabs / rpfhx=770 tabs for 3 months Nursing Note NO CP,SOB,DIET/MED CHANGES,FALLS OR SX OF BLEEDING. CONTINUE PRESENT DOSE AND FOLLOW-UP IN 4 WEEKS GOOD UNDERSTANDING OF DOSING INSTR. Anti-Coag Initial Assessment Social Hx Patient Tobacco Use Status: Former Tobacco user Coding Level of Care Code Est Patient Level 1 Diagnoses Current use of anticoagulant therapy Z79.01 Assessment & Plan Assessment & Plan (1) Current use of anticoagulant therapy: Code(s): Z79.01 - [facility] (current) use of anticoagulants Category: Medical
--- OUTSIDE RECORDS SUMMARY | 2025-02-05 09:17 | XMS_ITS | Patient Health Record ---
Author Organization [facility] Address [address] [place] [address] Care Team Providers Care Deportation Examiner Name Role Phone Isidro (RETIRED) Vernon QUIJANO Primary Care Provide r Unavailable Romero Jacobs Unavailable [phone] Joseph Bauer MD Unavailable Unavailable Allergies Allergen (clinical drug ingredient) [...] Packs 240 GM as directed Orally as directed; Duration: 1 day(s) 10/13/2013 Active Simvastatin 10 MG 1 tablet in the even ing Orally Once a day Active Problems Problem Type SNOMED Code ICD Code Onset Dates Problem Status W/U Status Risk Notes Problem Colon cancer screening (299303116) Colon cancer screening (V76.51) Active confirmed Problem History of adenomatous polyp of colon (781473609) History of adenomatous polyp of colon (V12.72) Active confirmed Problem Long-term current use of anticoagulant (535566533) Long-term (current) use of anticoagulants (V58.61) Active confirmed Plan Of Treatment Future Test Test Name Order Date COLONOSCOPY 10/13/2013 Insurance Providers Payer Name Payer Address Payer Phone Subscriber Number Group Number Insured Name Patient Relationship to Insured Coverage Start Date Coverage End Date [facility] [address] [place] [address] [phone] [id number] GHAZAL FERRER Self - patient is the insured MEDICAID OF [employer] [address] [place] [address] [id number] GHAZAL FERRER Self - patient is the insured Medical (General) History Medical History History ICD Code colonoscopy 07-13-2008--1 small tubular a denoma removed Mitral valve stenosis--he sees Dr. Lizette Vasquesies [place],DM,CVA,Lung disease,renal dise ase hypertension hypercholesterolemia
--- OUTSIDE RECORDS SUMMARY | 2025-02-05 09:17 | XMS_ITS | Encounter Summary ---
Author Organization [facility] Address [address] [facility] [address] [place] [address] Phone Care Team Providers Care Gritting Machine Operator Name Role Phone Vernon Felix MD Primary Care Provider [phone] Encounter Details Date Type Department Care Team (Latest Contact Info) Description 11/11/2023 Office Communication [facility] [address] [facility] [address] [place] [phone] Christian Pearce MD [address] [facility] [address] [place] [phone] Type 2 diabetes mellitus with diabetic chronic [...] Visit [facility] [address] [address] [place] [phone] Christian Pearce MD [address] [address] Scheduled Orders Name Type Priority Associated Diagnoses Orde r Schedule Renal function panel Lab Routine Type 2 diabetes mellitus with diabetic chronic kidney disease (HCC) Persistent proteinuria Expected: 12/16/2023, Expires: 12/11/2024 documented as of this encounter Visit Diagnoses Diagnosis Type 2 diabetes mellitus with diabetic chronic kidney disease (HCC)- Primary Persistent proteinuria documented in this encounter Care Teams Gritting Machine Operator Relationship Specialty Start Date End Date Vernon Felix MD [address] [facility] [address] [place], [place] PCP - General 05/09/20 documented as of this encounter
--- OUTSIDE RECORDS SUMMARY | 2025-02-05 09:18 | XMS_ITS | Clinical Summary ---
Author Organization [facility] Address [address] [place] [address] Phone Care Team Providers Care Business Center Manager Name Role Phone Vernon Felix MD [...] DAY 60 MINUTES BEFORE INTENDED ACTIVITY NEEDED 05/10/19 23 Active losartan (COZAAR) 25 MG tablet TAKE TWO TABLETS BY MOUTH EVERY DAY 180 tablet 3 10/30/19 25 Active Dapagliflozin Propanediol 10 MG tablet Take 10 mg by mouth 1 (one) time each day in the morning 90 tablet 11/03/19 25 Active metFORMIN (GLUCOPHAGE) 500 MG tablet Take 1 tablet (500 mg total) by mouth in the morning and 1 tablet (500 mg total) in the evening. 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 Encounters Date Type Department Care Team Description 01/17/2025 Refill [facility] [address] [phone] Christian Pearce MD 12/18/2024 Refill [facility] [address] [phone] Ken Shaikh from Last 3 Months Family History Medical [...] Visit [facility] [address] [place] [address] Christian Pearce MD [address] [phone] Health Maintenance Due Date Last Done Comments [...] Hemoglobin A1C 7.4(A) 4.0 - 6.0 06/19/2022 [facility] Provider LAB BLOOD ORDERABLES Ania l Result from Last 3 Months or Most Recently Relevant to Health Maintenance Insurance Medicaid IN [facility] Medicare Medicaid [place] Care Teams Business Center Manager Relationship Specialty Start Date End Date Vernon Felix MD [address] [place] PCP - General 05/09/20
== END 2025-02-05 09:12 | disposition home or self-care (01) ==
LOC: HO.ACS 08:56
PROVIDERS: PCP Internal Medicine; Visit Provider Internal Medicine Medical Oncology
DX: Z79.01 Long term (current) use of anticoagulants (principal)

== ENCOUNTER → 2025-02-05 08:56 | Outpatient (BNVA) | payer MEDICARE, MEDICAID, SELFPAY | PROVIDERS: PCP Internal Medicine; Visit Provider Internal Medicine Medical Oncology | DX: Z51.81 Encounter for therapeutic drug level monitoring (principal); Z79.01 Long term (current) use of anticoagulants | CPT/HCPCS: 85610; 99211 ==

== ENCOUNTER 2025-03-05 09:03 | Outpatient (AMB) | payer MEDICARE, MEDICAID, SELFPAY ==
--- NOTE | 2025-03-05 09:14 | MHC.OFFVISCO ---
Intake Intake Visit Reasons: Anticoagulation Allergies peanut (PEANUT) Adverse Reaction (Intermediate, Verified 03/05/25 09:28) ANGIOEDEMA SEASONAL ALLERGIES Allergy (Mild, Uncoded 03/05/25 09:28) STUFFY NOSE Medication List - Last Reconciled 03/05/25 by Neelam Villalobos RN carvedilol 3.125 mg PO BID cetirizine (Allergy Relief (cetirizine)) 10 mg PO DAILY PRN dapagliflozin propanediol (Farxiga) 10 mg PO DAILY finerenone (Kerendia) mg PO losartan 50 mg PO DAILY metformin 500 mg PO BIDWMEAL sildenafil 100 mg PO ONCE PRN 30 days simvastatin mg PO tadalafil 10 mg PO DAILY 90 days warfarin (Jantoven) 3 mg See Protocol PO DAILY 90 days Nursing Note INR: 2.6- in therapeutic range 2-3 Medications and supplements reviewed- no changes No changes in health, diet, medications, or supplements, Denies any signs and symptoms of bleeding or bruising or clotting. Bleeding, bruising, clotting discussed Nutritional guidance given Dose: 6mg x 3 3mg x 4 F/U INR: 4 weeks Patient verbalizes understanding of instructions given pt states recent script for warfarin was only 90 tabs- not enough quantity for his dosing composed note to pcp Anti-Coag Initial Assessment Social Hx Patient Tobacco Use Status: Former Tobacco user Coding Level of Care Code Est Patient Level 1 Diagnoses Current use of anticoagulant therapy Z79.01 Results AMB INR Fingerstick AMB INR Fingerstick 2.6 Last Edit by Neelam Villalobos RN on 03/05/25 09:16 interface delay Assessment & Plan Assessment & Plan (1) Current use of anticoagulant therapy: Code(s): Z79.01 - 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
--- OUTSIDE RECORDS SUMMARY | 2025-03-05 10:04 | XMS_ITS | Patient Health Record ---
Author Organization [facility] Address [address] [place] [address] Care Team Providers Care Broaching Machine Repairer Name Role Phone Isidro (RETIRED) Vernon QUIJANO Primary Care Provide r Unavailable Romero Jacobs Unavailable [phone] Joseph Bauer MD Unavailable Unavailable Allergies Allergen [...] Status Risk Notes Problem Colon cancer screening (983711823) Colon cancer screening (V76.51) Active confirmed Problem History of adenomatous polyp of colon (522878096) History of adenomatous polyp of colon (V12.72) Active confirmed Problem Long-term current use of anticoagulant (732829848) Long-term (current) use of anticoagulants (V58.61) Active confirmed Plan Of Treatment Future Test Test Name Order Date COLONOSCOPY 10/13/2013 Insurance Providers Payer Name Payer Address Payer Phone Subscriber Number Group Number Insured Name Patient Relationship to Insured Coverage Start Date Coverage End Date [facility] [address] [place] [address] [id number] GHAZAL FERRER Self - patient is the insured MEDICAID OF [employer] [address] [place] [phone] [id number] GHAZAL FERRER Self - patient is the insured Medical (General) History Medical History History ICD Code colonoscopy 07-13-2008--1 small tubular a denoma removed Mitral valve stenosis--he sees Dr. Lizette Vasquesies [place],DM,CVA,Lung disease,renal dise ase hypertension hypercholesterolemia
[2025-03-06 09:07] LABS: Prothrombin Time Whole Bld POC 30.9 sec (11.1-13.5); ~PT, ~INR - Anti Coag Clinic 2.6 (0.9-1.1)
== END 2025-03-05 09:34 | disposition home or self-care (01) ==
LOC: HO.ACS 09:03
PROVIDERS: PCP Internal Medicine; Visit Provider Internal Medicine Medical Oncology
DX: Z79.01 Long term (current) use of anticoagulants (principal)

== ENCOUNTER → 2025-03-05 09:03 | Outpatient (BNVA) | payer MEDICARE, MEDICAID, SELFPAY | PROVIDERS: PCP Internal Medicine; Visit Provider Internal Medicine Medical Oncology | DX: Z79.01 Long term (current) use of anticoagulants (principal) | CPT/HCPCS: 85610; 99211 ==

== ENCOUNTER 2025-03-17 09:26 | Outpatient (AMB) | payer MEDICARE, MEDICAID, SELFPAY ==
--- NOTE | 2025-03-17 09:31 | MHC.PC.OV ---
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 Required: No Accompanied by: Self / Same As Patient Allergies peanut (PEANUT) Adverse Reaction (Intermediate, Verified 03/17/25 09:34) ANGIOEDEMA SEASONAL ALLERGIES Allergy (Mild, Uncoded 03/05/25 09:28) STUFFY NOSE Medication List - Last Reconciled 03/29/25 by ELIZABETH Luther carvedilol 3.125 mg PO BID cetirizine (Allergy Relief (cetirizine)) 10 mg PO DAILY PRN losartan 50 mg PO DAILY metformin 500 mg PO BIDWMEAL sildenafil 100 mg PO ONCE PRN 30 days simvastatin 10 mg PO ONCE 90 days tadalafil 10 mg PO DAILY 90 days warfarin (Jantoven) 3 mg See Protocol PO DAILY Tobacco use date assessed: 03/17/25 Fall risk assessment: No Falls in past year Last assessed Fall Risk: 03/17/25 Dental Screening Dental Screen Date: 03/17/25 Did you have a dental visit in the last 12 months?: Yes Did you have a dental problem in the last 6 months where you did not have access to dental care?: No HPI HPI Comments History of Present Illness Details History of Present Illness The patient is a 69-year-old male with HTN, HLD, DM, Afib, CKD, AR, and history of mitral valve repair presenting for chronic condition management. He has a history of atrial fibrillation and a mitral valve issue, for which he takes warfarin. His medical history also includes hypertension, managed with losartan and carvedilol; hyperlipidemia, managed with simvastatin; and diabetes, managed with metformin taken twice daily. He is followed by cardiology, whom he saw two months ago, and is scheduled for his next cardiology follow-up next year. His last echocardiogram was performed six or seven months ago. The patient reports intermittent heartburn occurring about once or twice a month, which is effectively relieved with a liquid antacid. In terms of health maintenance, his last eye exam was last month with good results, and he is up to date with his Cologuard screening. Medical History: - Atrial fibrillation - Mitral valve disorder, status post repair - Hypertension - Hyperlipidemia - Type 2 Diabetes Mellitus - Heartburn Medications: - Simvastatin for hyperlipidemia - Losartan for hypertension - Carvedilol for hypertension - Warfarin for atrial fibrillation and valve condition, with variable dosing of 3 mg to 6 mg. - Metformin, taken morning and night, for diabetes - Denies taking cetirizine (Zyrtec) Health Maintenance The patient is up-to-date with his Cologuard screening and had a normal eye exam last month. He will continue to follow up with cardiology as scheduled. Patient was informed and verbally consented to the use of an ambient scribe for clinic note documentation during this visit. [facility] Medical History (Updated 03/29/25 @ 01:09 by ELIZABETH Luther) Atrial fibrillation CKD (chronic kidney disease) Diabetes mellitus HLD (hyperlipidemia) HTN (hypertension) Surgical History History of colonoscopy (~01/12/14) S/P mitral valve replacement Family History (Updated 03/17/25 @ 09:46 by Rose Santoyo MA) Mother No problems noted. Father No problems noted. Social History Housing: House Patient Tobacco Use Status: Former Tobacco user e-Cigarette/Vaping Use: Former Use service: No Current occupational status: employed Cognitive needs: No Hearing needs: No Vision needs: Yes (rx glasses) Questionnaire PHQ-9 Over the last 2 weeks, how often have you been bothered by any of the following problems? 1. Little interest or pleasure in doing things: not at all 2. Feeling down, depressed, or hopeless: not at all 3. Trouble falling or staying asleep, or sleeping too much: not at all 4. Feeling tired or having little energy: not at all 5. Poor appetite or overeating: not at all 6. Feeling bad about yourself - or that you are a failure or have let yourself or your family down: not at all 7. Trouble concentrating on things, such as reading the newspaper or watching television: not at all 8. Moving or speaking so slowly that other people could have noticed. Or the opposite - being so fidgety or restless that you have been moving around a lot more than usual: not at all 9. Thoughts that you would be better off or of hurting yourself in some way: not at all Total score: 0 Depression Screening Interpretation: Negative Depression Screening Done: Yes Source: Developed by Drs. Romero Patel, Christa Connor, Marvin Hardin and colleagues, with an educational khushbu from [employer]. Thrive Questionnaire Date Thrive assessed: 03/17/25 I am a: Patient Within the past 12 months, did the food you bought not last and you didn't have the money to get more?: Never true Within the past 12 months, did you worry whether your food would run out before you got money to buy more?: Never true Do you have trouble paying for medicines?: No Do you have trouble getting transportation to medical appointments?: No Do you have trouble paying your heating and electricity bill?: No Do you have trouble taking care of your child, family member or friend?: No Do you have trouble with day-to-day activities such as bathing, preparing meals, shopping, managing finances, etc.?: No Are you currently unemployed and looking for a job?: No THRIVE Score: 0 AUDIT C Alcohol Use Questionnaire (AUDIT-C) 1. How often do you have a drink containing alcohol?: Never 3. How often do you have six or more drinks on one occasion?: Never Total Score: 0 LILLIE-7 AMB Questionnaire LILLIE-7 Date LILLIE - 7 assessed: 03/17/25 Feeling nervous, anxious, or on edge: 0 = Not at all Not being able to stop or control worryin = Not at all Worrying too much about different things: 0 = Not at all Trouble relaxin = Not at all Being so restless that it is hard to sit still: 0 = Not at all Becoming easily annoyed or irritable: 0 = Not at all Feeling afraid as if something awful might happen: 0 = Not at all Total LILLIE-7 score (0-4 normal; 5-9 mild; 10-14 moderate; 15-21 severe): 0 Source: Developed by Drs. Romero Patel, Christa Connor, Marvin Hardin and colleagues, with an educational khushbu from [employer]. Review of Systems Narrative Review of Systems - Eyes: Denies vision problems. - Ears/Nose/Throat: Denies hearing problems. - Cardiovascular: Denies chest pain. - Respiratory: Denies shortness of breath. - Gastrointestinal: Reports intermittent heartburn occurring one to two times a month. Denies constipation or diarrhea. - Musculoskeletal: Denies back pain or joint pain. Physical exam (Primary Care) Vital Signs: Last Vital Signs Temp 97 F 03/17/25 09:32 Pulse 63 03/17/25 09:32 BP 134/80 03/17/25 09:32 Pulse Ox 98 03/17/25 09:32 Oxygen Delivery Method Room Air 03/17/25 09:32 BMI result Body Mass Index 27.8 GENERAL Well developed, Well nourished, in no apparent distress HEENT Head-Normocephalic Eyes- PERRLA, EOMI, Conjuctiva clear, lids WNL Ears- Canals clear, TMs WNL Mouth/Throat-No lesions, no erythema, no exudate Neck- Supple, No lymphadenopathy, thyroid WNL RESPIRATORY Normal I:E, Clear to auscultation CARDIOVASCULAR Regular, rate and rhythm, Auscultation reveals a heart murmur, likely related to his mitral valve condition. GASTROINTESTINAL Soft, nontender, normal bowel sounds, no masses MUSCULOSKELETAL Back- nontender Joints- no swelling or deformity NEUROLOGICAL Gait normal PSYCHIATRIC Oriented to person, place and time Mood and affect WNL Appearance WNL Speech WNL Thought processes WNL Tobacco/Smoking Status: Tobacco use Status Tobacco use date assessed 03/17/25 03/17/25 09:37 Patient Tobacco Use Status Former Tobacco user 03/17/25 09:32 e-Cigarette/Vaping Use Former Use 03/17/25 09:32 PHQ-9: PHQ-9 Score PHQ-9: Total score 0 03/22/25 17:30 Depression Screening Interpretation: Negative Thrive Assessment: Date of Thrive Assessment Date Thrive assessed 03/17/25 03/17/25 09:37 Results Reviewed Results Reviewed: A1C was 8.5% in November Coding Level of Care Code Established Pt Est Pt Level 4 (62010) Patient Type Established Diagnoses HTN (hypertension) I10 Atrial fibrillation I48.91 HLD (hyperlipidemia) E78.5 Diabetes mellitus E11.9 CKD (chronic kidney disease) N18.9 Time Spent (min) 35 Comment Time was spent on chart review, medication reconciliation, H&P, Patient education, orders. Assessment & Plan Assessment & Plan (1) HTN (hypertension): Comment: BP today was 134/80 Code(s): I10 - Essential (primary) hypertension Category: Medical (2) Atrial fibrillation: Comment: On Warfarin Code(s): I48.91 - Unspecified atrial fibrillation Category: Medical (3) HLD (hyperlipidemia): Code(s): E78.5 - Hyperlipidemia, unspecified Category: Medical (4) Diabetes mellitus: Code(s): E11.9 - Type 2 diabetes mellitus without complications Category: Medical (5) CKD (chronic kidney disease): Code(s): N18.9 - Chronic kidney disease, unspecified Category: Medical Plan Plan Patient was informed and verbally consented to the use of an ambient scribe for clinic note documentation during this visit. 1. Chronic Condition Management The patient will continue his current medications, including simvastatin for hyperlipidemia, and losartan and carvedilol for hypertension, as his blood pressure is well-controlled. He will also continue metformin twice daily for diabetes and warfarin with variable dosing for atrial fibrillation. Refills for warfarin and metformin will be sent to the [facility] [place] [address]. Follow-up blood work has been ordered to be done today to check his blood sugar and kidney function. A follow-up appointment is scheduled in three months. 2. Heartburn The patient was advised to continue using liquid antacid as needed for his intermittent heartburn, which he reports is effective. Discussion Notes I reviewed the patient's medications and confirmed he is taking simvastatin, losartan, carvedilol, warfarin, and metformin. His blood pressure today was 134/80 mmHg, which is good. I noted the presence of a heart murmur on exam, which is likely related to his known mitral valve condition. We discussed the plan to obtain follow-up blood work today to monitor his blood sugar and kidney function. I have sent refills for his medications to his preferred pharmacy and advised him to schedule a follow-up visit in three months. Patient Instructions - Continue taking all your medications as prescribed for your blood pressure, cholesterol, diabetes, and heart condition. - For heartburn, you can continue taking the liquid pink medicine as needed when symptoms occur. - Please go to the lab to get your blood work done today. - We have sent refills for your medications to the [facility] [place] [address]. - Please make a follow-up appointment to be seen in the office in three months. Orders: Orders Hemoglobin A1c 03/17/25 E11.9 - Type 2 diabetes mellitus without complications Comprehensive Met. Panel 03/17/25 I10 - Essential (primary) hypertension, E11.9 - Type 2 diabetes mellitus without complications, N18.9 - Chronic kidney disease, unspecified Complete Blood Count no Diff 03/17/25 I10 - Essential (primary) hypertension, E11.9 - Type 2 diabetes mellitus without complications, N18.9 - Chronic kidney disease, unspecified Lipid Panel 03/17/25 Z13.220 - Encounter for screening for lipoid disorders, I10 - Essential (primary) hypertension, E11.9 - Type 2 diabetes mellitus without complications Medications: Changed From warfarin Take 2 tabs MWF, 1 tab Venegas Tues Th Sat 3 mg See Protocol PO DAILY 90 days 130 tabs 1RF To warfarin (Jantoven) Take 2 tabs MWF, 1 tab Venegas Tues Th Sat 3 mg See Protocol PO DAILY 130 tabs 2RF a fib Refilled cetirizine (Allergy Relief (cetirizine)) Take one tablet by mouth every day 10 mg PO DAILY PRN 90 tabs 1RF allergy symptoms metformin 500 mg PO BIDWMEAL 180 tabs 1RF
[2025-03-17 09:32] VITALS: BP 134/80; PULSE 63; TEMP 36.1; O2SAT 98; BMI 27.8
--- OUTSIDE RECORDS SUMMARY | 2025-03-17 17:24 | XMS_ITS | Patient Health Record ---
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 Name Role Phone Isidro (RETIRED) Vernon QUIJANO Primary Care Provide r Unavailable Romero Jacobs Unavailable [phone] Lizette QUIJANO, Joannanc Unavailable Unavailable Allergies Allergen (clinical drug ingredient) Drug/Non Drug Allergy documented on EMR Reaction Allergy Type Onset Date Status seasonal allergies (uncoded) Unknown Allergy Active Reason For Referral No Information Medications Medication SIG (Take, Route, Frequency, Duration) Notes Start Date End Date Status Aspir-81 81 MG Tablet Delaye d Release 1 tablet Orally Once a day Active hydroCHLOROthiazide 12.5 MG Capsule 1 capsule Orally Once a day Active Warfarin Sodium 3 MG Tablet 1 tablet Ora lly every day Active Lisinopril 5 MG Tablet 1 tablet Orally O nce a day Active Atenolol 50 MG Tablet 1 tablet Orally On ce a day Active Colyte w Flavor Packs 240 GM Solution Reconstituted as directed Orally as directed; Duration: 1 day(s) 10/13/2013 Active Simvastatin 10 MG Tablet 1 tablet in the evening Orally Once a day Active Social History Social History Additional Details Category Social Info Options Details Miscellaneous: Marital status: 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 [employer] Section Notes: Nonsmoker; no alcohol Problems Problem Type SNOMED Code ICD Code Onset Dates Problem Status W/U Status Risk Notes Problem Colon cancer screening (950508138) Colon cancer screening (V76.51) Active confirmed Problem History of adenomatous polyp of colon (218342401) History of adenomatous polyp of colon (V12.72) Active confirmed Problem Long-term current use of anticoagulant (356300908) Long-term (current) use of anticoagulants (V58.61) Active confirmed Plan Of Treatment Future Test Test Name Order Date COLONOSCOPY 10/13/2013 Insurance Providers Payer Name Payer Address Payer Phone Subscriber Number Group Number Insured Name Patient Relationship to Insured Coverage Start Date Coverage End Date [facility] [employer] [address] [place] [address] [id number] GHAZAL FERRER Self - patient is the insured MEDICAID OF [employer] [address] [place] [address] [id number] GHAZAL FERRER Self - patient is the insured Medical (General) History Medical History History ICD Code colonoscopy 07-13-2008--1 small tubular a denoma removed Mitral valve stenosis--he sees Dr. Bauer Denies [place],DM,CVA,Lung disease,renal dise ase hypertension hypercholesterolemia
--- OUTSIDE RECORDS SUMMARY | 2025-03-17 17:24 | XMS_ITS | Clinical Summary ---
Author Organization [facility] Address [address] [place] [facility] [place] [address] Phone Care Team Providers Care Sales And Service Agent Name Role Phone Vernon Felix MD Primary Care Provider [phone] Allergies No known active allergies Medications warfarin [...] day in the morning 90 tablet 5 Active metFORMIN (GLUCOPHAGE) 500 MG tablet Take 1 tablet (500 mg total) by mouth in the morning and 1 tablet (500 mg total) in the evening. 30 tablet 3 5 Active Kerendia 10 MG tablet TAKE ONE TABLET BY MOUTH EVERY DAY 60 tablet 3 5 Active Active Problems Problem Noted Date Diagnosed Date Microalbuminuria 07/04/2020 Chronic kidney disease, stage 2 (mild) 1 Hypertension secondary to other renal disorder 0 07/04/2020 Proteinuria 07/04/2020 Type 2 diabetes mellitus with diabetic nephropat hy 07/04/2020 Encounters Date Type Department Care Team Description 01/17/2025 Refill [facility] [address] [place] [id number] Christian Pearce MD 12/18/2024 Refill [facility] [address] [place] [phone] Ken Shaikh from Last 3 Months Family [...] Office Visit [facility] [address] [place] [address] Christian Pearce MD [address] [phone] Health Maintenance Due Date Last Done Comments [...] [place] UHC [place] Care Teams Sales And Service Agent Relationship Specialty Start Date End Date Vernon Felix MD [address] [place], [place] PCP - General 05/09/20
== END 2025-03-17 10:06 | disposition home or self-care (01) ==
LOC: HO.HMCHD 09:27
PROVIDERS: PCP Physician Assistant; Visit Provider Physician Assistant Medical
DX: I12.9 Hypertensive chronic kidney disease with stage 1 through stage 4 chronic kidney disease, or unspecified chronic kidney disease (principal); I48.91 Unspecified atrial fibrillation; E78.5 Hyperlipidemia, unspecified; E11.9 Type 2 diabetes mellitus without complications; N18.9 Chronic kidney disease, unspecified

== ENCOUNTER → 2025-03-17 09:26 | Outpatient (BNVA) | payer MEDICARE, MEDICAID, SELFPAY | PROVIDERS: PCP Physician Assistant; Visit Provider Physician Assistant Medical | DX: Z00.00 Encounter for general adult medical examination without abnormal findings (principal); I12.9 Hypertensive chronic kidney disease with stage 1 through stage 4 chronic kidney disease, or unspecified chronic kidney disease; E78.5 Hyperlipidemia, unspecified; E11.9 Type 2 diabetes mellitus without complications; I48.91 Unspecified atrial fibrillation; N18.9 Chronic kidney disease, unspecified; Z13.30 Encounter for screening examination for mental health and behavioral disorders, unspecified | CPT/HCPCS: 36415; 80053; 80061; 83036; 85027; 96127; 99212 ==

== ENCOUNTER 2025-03-17 10:13 | Outpatient (REF) | payer MEDICARE, MEDICAID, SELFPAY ==
[2025-03-17 10:47] LABS: Hematocrit 45.0 % (42.0-52.0); Hemoglobin 14.8 g/dl (14.0-18.0); Mean Corpuscular HGB Conc 32.9 g/dl (31.0-36.0); Mean Corpuscular Hemoglobin 30.3 pg (27.0-33.0); Mean Corpuscular Volume 92.2 fL (80.0-98.0); NRBC Abs Auto 0.000 X10*3/uL (0.0-0.012); NRBC Pct Auto 0.0 /100WBC (0.0-0.2); Platelet Count 172 X10*3/uL (160-400); Red Blood Count 4.88 X10*6/uL (4.60-5.80); White Blood Count 4.7 X10*3/uL (4.8-10.8)
[2025-03-17 11:07] LABS: Alanine Aminotransferase 21 U/L (0-40); Albumin Level 4.7 g/dL (3.5-5.0); Alkaline Phosphatase 45 U/L (39-117); Anion Gap 10 (12-20); Aspartate Amino Transferase 29 U/L (5-37); Blood Urea Nitrogen 13 mg/dL (9-16); Calcium 8.9 mg/dL (8.4-10.2); Carbon Dioxide 26 mmol/L (22-29); Chloride 104 mmol/L (96-108); Cholesterol 139 mg/dL (<200); Estimated Glomerular Filt Rate > 60; HDL Cholesterol 47 mg/dL (>40); Potassium 4.2 mmol/L (3.3-5.1); Sodium 136 mmol/L (135-145); Total Protein 8.1 g/dL (6.5-8.0); Triglycerides 72 mg/dL (<150)
== END 2025-03-17 10:14 | disposition home or self-care (01) ==
LOC: HO.10HDL 10:13
PROVIDERS: Visit Provider Physician Assistant Medical
DX: I12.9 Hypertensive chronic kidney disease with stage 1 through stage 4 chronic kidney disease, or unspecified chronic kidney disease (principal); E11.22 Type 2 diabetes mellitus with diabetic chronic kidney disease; Z13.220 Encounter for screening for lipoid disorders
CPT/HCPCS: 36415; 80053; 80061; 83036; 85027

== ENCOUNTER 2025-04-09 09:15 | Outpatient (AMB) | payer MEDICARE, MEDICAID, SELFPAY ==
--- NOTE | 2025-04-09 09:20 | MHC.OFFVISCO ---
Intake Intake Visit Reasons: Anticoagulation Allergies peanut (PEANUT) Adverse Reaction (Intermediate, Verified 04/09/25 09:15) ANGIOEDEMA SEASONAL ALLERGIES Allergy (Mild, Uncoded 04/09/25 09:15) STUFFY NOSE Medication List - Last Reconciled 04/09/25 by Jessica Ken RN carvedilol 3.125 mg PO BID 90 days cetirizine (Allergy Relief (cetirizine)) 10 mg PO DAILY PRN losartan 50 mg PO DAILY metformin 500 mg PO BIDWMEAL sildenafil 100 mg PO ONCE PRN 30 days simvastatin 10 mg PO ONCE 90 days tadalafil 10 mg PO DAILY 90 days warfarin (Jantoven) 3 mg See Protocol PO DAILY Nursing Note INR: 2.6 in therapeutic range of 2-3 Medications and supplements reviewed No changes in health, diet, medications, or supplements, Denies any signs and symptoms of bleeding or bruising or clotting. Bleeding, bruising, clotting discussed Nutritional guidance given Dose: 3mg X 4 days and 6mg X 3 days (M/W/F) F/U INR: 4 weeks Patient verbalizes understanding of instructions given Anti-Coag Initial Assessment Social Hx Patient Tobacco Use Status: Former Tobacco user Coding Level of Care Code Est Patient Level 1 Diagnoses Current use of anticoagulant therapy Z79.01 Results AMB INR Fingerstick AMB INR Fingerstick 2.6 Last Edit by Jessica Ken RN on 04/09/25 09:20 interface delay Assessment & Plan Assessment & Plan (1) Current use of anticoagulant therapy: Code(s): Z79.01 - USP (current) use of anticoagulants Category: Medical
[2025-04-09 09:50] LABS: Prothrombin Time Whole Bld POC 30.9 sec (11.1-13.5); ~PT, ~INR - Anti Coag Clinic 2.6 (0.9-1.1)
== END 2025-04-09 09:24 | disposition home or self-care (01) ==
LOC: HO.ACS 09:15
PROVIDERS: PCP Physician Assistant; Visit Provider Internal Medicine Medical Oncology
DX: Z79.01 Long term (current) use of anticoagulants (principal)

== ENCOUNTER → 2025-04-09 09:15 | Outpatient (BNVA) | payer MEDICARE, MEDICAID, SELFPAY | PROVIDERS: PCP Physician Assistant; Visit Provider Internal Medicine Medical Oncology | DX: Z79.01 Long term (current) use of anticoagulants (principal) | CPT/HCPCS: 85610; 99211 ==